=== PATIENT | male | born 1950 | race Caucasian/White ===

== ENCOUNTER → 2023-11-26 11:43 | Outpatient (REF) | payer OTHER, SELFPAY ==
[2023-11-26 10:09] LABS: % Basophils 0.3 % (0-2); % Eosinophils 2.5 % (0-6); % Immature Granulocytes 0.6 % (0-0.5); % Lymphocytes 19.4 % (20.5-51.1); % Monocytes 4.8 % (1.7-9.3); % Neutrophils 72.4 % (42.2-75.2); Absolute Eosinophils 0.1 10^3/uL (0-0.7); Absolute Lymphocytes 0.7 10^3/uL (1.2-3.4); Absolute Monocytes 0.2 10^3/uL (0.1-0.6); Absolute Neutrophils 2.6 10^3/uL (1.4-6.5); Hematocrit 24.3 % (39.0-52.0); Hemoglobin 7.9 g/dL (13.0-18.0); Mean Corp Hgb Conc. 32.5 g/dL (33.0-37.0); Mean Corpuscular Hgb 29.5 pg (27.0-31.0); Mean Corpuscular Volume 90.7 fL (80.0-94.0); Mean Platelet Volume 10.4 fL (7.4-10.4); Nucleated Red Blood Cells % 0 % (-); Platelet Count 101 10^3/uL (130-400); Red Blood Cell Count 2.68 10^6/uL (4.70-6.10); Red Cell Dist. Width 17.2 % (11.5-14.5); White Blood Cell Count 3.6 10^3/uL (4.8-10.8)
[2023-11-26 10:42] LABS: ALT (SGPT) 13 U/L (0-50); AST (SGOT) 19 U/L (17-59); Albumin 2.1 g/dl (3.5-5.0); Alkaline Phosphatase 53 U/L (38-126); Blood Urea Nitrogen 12 mg/dl (9-20); Carbon Dioxide 20 mmol/L (22-30); Chloride 118 mmol/L (98-107); Glucose 66 mg/dl (70-99); Potassium 2.7 mmol/L (3.5-5.1); Sodium 138 mmol/L (135-145); Total Bilirubin 0.4 mg/dl (0.2-1.3); Total Protein 4.1 g/dl (6.3-8.2); eGFR > 60.00
== END ==
LOC: OIDL 11:43
PROVIDERS: ATTENDING PHYSICIAN Internal Medicine Hematology & Oncology
DX: C25.0 Malignant neoplasm of head of pancreas (principal)
CPT/HCPCS: 80053; 85025

== ENCOUNTER → 2023-11-27 13:31 | Outpatient (REF) | payer OTHER, SELFPAY ==
[2023-11-27 09:05] LABS: % Basophils 0.3 % (0-2); % Eosinophils 2.4 % (0-6); % Lymphocytes 37.4 % (20.5-51.1); % Monocytes 10.9 % (1.7-9.3); Absolute Eosinophils 0.1 10^3/uL (0-0.7); Absolute Lymphocytes 1.1 10^3/uL (1.2-3.4); Absolute Monocytes 0.3 10^3/uL (0.1-0.6); Absolute Neutrophils 1.4 10^3/uL (1.4-6.5); Hematocrit 33.6 % (39.0-52.0); Hemoglobin 10.9 g/dL (13.0-18.0); Mean Corp Hgb Conc. 32.4 g/dL (33.0-37.0); Mean Corpuscular Hgb 29.5 pg (27.0-31.0); Mean Corpuscular Volume 91.1 fL (80.0-94.0); Mean Platelet Volume 10.4 fL (7.4-10.4); Nucleated Red Blood Cells % 0 % (-); Platelet Count 124 10^3/uL (130-400); Red Blood Cell Count 3.69 10^6/uL (4.70-6.10); Red Cell Dist. Width 17.3 % (11.5-14.5); White Blood Cell Count 2.9 10^3/uL (4.8-10.8)
[2023-11-27 09:18] LABS: ALT (SGPT) 18 U/L (0-50); AST (SGOT) 24 U/L (17-59); Albumin 3.6 g/dl (3.5-5.0); Alkaline Phosphatase 76 U/L (38-126); Blood Urea Nitrogen 15 mg/dl (9-20); Calcium 8.9 mg/dl (8.4-10.2); Carbon Dioxide 27 mmol/L (22-30); Chloride 104 mmol/L (98-107); Glucose 129 mg/dl (70-99); Potassium 4.1 mmol/L (3.5-5.1); Sodium 135 mmol/L (135-145); Total Bilirubin 0.6 mg/dl (0.2-1.3); Total Protein 6.1 g/dl (6.3-8.2); eGFR > 60.00
== END ==
LOC: OIDL 13:31
PROVIDERS: ATTENDING PHYSICIAN Internal Medicine Hematology & Oncology
DX: C25.0 Malignant neoplasm of head of pancreas (principal)
CPT/HCPCS: 80053; 85025

== ENCOUNTER → 2023-12-10 11:42 | Outpatient (REF) | payer OTHER, SELFPAY ==
[2023-12-10 09:17] LABS: % Basophils 0.2 % (0-2); % Immature Granulocytes 0.2 % (0-0.5); % Lymphocytes 28.7 % (20.5-51.1); % Monocytes 11.6 % (1.7-9.3); % Neutrophils 56.3 % (42.2-75.2); Absolute Eosinophils 0.1 10^3/uL (0-0.7); Absolute Lymphocytes 1.2 10^3/uL (1.2-3.4); Absolute Monocytes 0.5 10^3/uL (0.1-0.6); Absolute Neutrophils 2.3 10^3/uL (1.4-6.5); Hematocrit 32.3 % (39.0-52.0); Hemoglobin 10.6 g/dL (13.0-18.0); Mean Corp Hgb Conc. 32.8 g/dL (33.0-37.0); Mean Corpuscular Hgb 30.2 pg (27.0-31.0); Mean Platelet Volume 9.9 fL (7.4-10.4); Platelet Count 271 10^3/uL (130-400); Red Blood Cell Count 3.51 10^6/uL (4.70-6.10)
[2023-12-10 10:15] LABS: ALT (SGPT) 18 U/L (0-50); AST (SGOT) 26 U/L (17-59); Albumin 3.4 g/dl (3.5-5.0); Alkaline Phosphatase 70 U/L (38-126); Blood Urea Nitrogen 16 mg/dl (9-20); Calcium 8.8 mg/dl (8.4-10.2); Carbon Dioxide 27 mmol/L (22-30); Chloride 104 mmol/L (98-107); Glucose 101 mg/dl (70-99); Potassium 4.2 mmol/L (3.5-5.1); Sodium 135 mmol/L (135-145); Total Bilirubin 0.5 mg/dl (0.2-1.3); Total Protein 5.9 g/dl (6.3-8.2); eGFR > 60.00
== END ==
LOC: OIDL 11:42
PROVIDERS: ATTENDING PHYSICIAN Internal Medicine Hematology & Oncology
DX: C25.0 Malignant neoplasm of head of pancreas (principal)
CPT/HCPCS: 80053; 85025

== ENCOUNTER → 2023-12-17 09:45 | Outpatient (REF) | payer OTHER, SELFPAY ==
[2023-12-17 09:28] LABS: % Basophils 0.3 % (0-2); % Eosinophils 2.6 % (0-6); % Immature Granulocytes 0.3 % (0-0.5); % Lymphocytes 26.1 % (20.5-51.1); % Monocytes 3.1 % (1.7-9.3); % Neutrophils 67.6 % (42.2-75.2); Absolute Eosinophils 0.1 10^3/uL (0-0.7); Absolute Monocytes 0.1 10^3/uL (0.1-0.6); Absolute Neutrophils 2.6 10^3/uL (1.4-6.5); Hematocrit 33.8 % (39.0-52.0); Mean Corp Hgb Conc. 32.5 g/dL (33.0-37.0); Mean Corpuscular Hgb 29.9 pg (27.0-31.0); Mean Corpuscular Volume 91.8 fL (80.0-94.0); Mean Platelet Volume 9.2 fL (7.4-10.4); Platelet Count 377 10^3/uL (130-400); Red Blood Cell Count 3.68 10^6/uL (4.70-6.10); Red Cell Dist. Width 16.6 % (11.5-14.5); White Blood Cell Count 3.9 10^3/uL (4.8-10.8)
[2023-12-17 10:23] LABS: ALT (SGPT) 23 U/L (0-50); AST (SGOT) 31 U/L (17-59); Albumin 3.6 g/dl (3.5-5.0); Alkaline Phosphatase 75 U/L (38-126); Blood Urea Nitrogen 22 mg/dl (9-20); Calcium 8.9 mg/dl (8.4-10.2); Carbon Dioxide 27 mmol/L (22-30); Chloride 102 mmol/L (98-107); Glucose 118 mg/dl (70-99); Potassium 4.6 mmol/L (3.5-5.1); Sodium 133 mmol/L (135-145); Total Bilirubin 0.7 mg/dl (0.2-1.3); Total Protein 6.1 g/dl (6.3-8.2); eGFR > 60.00
== END ==
LOC: OIDL 09:45
PROVIDERS: ATTENDING PHYSICIAN Internal Medicine Hematology & Oncology
DX: C25.0 Malignant neoplasm of head of pancreas (principal)
CPT/HCPCS: 80053; 85025

== ENCOUNTER → 2023-12-30 13:20 | Outpatient (REF) | payer OTHER, SELFPAY | LOC: HWRAD 13:20 | PROVIDERS: ATTENDING PHYSICIAN Internal Medicine Hematology & Oncology; FAMILY PHYSICIAN Nurse Practitioner Family | DX: C25.0 Malignant neoplasm of head of pancreas (principal); C78.7 Secondary malignant neoplasm of liver and intrahepatic bile duct; D64.9 Anemia, unspecified; D63.0 Anemia in neoplastic disease; E87.6 Hypokalemia; E83.51 Hypocalcemia | CPT/HCPCS: 71260; 74177; Q9967 ==

== ENCOUNTER → 2024-01-01 13:19 | Outpatient (REF) | payer OTHER, SELFPAY ==
[2024-01-01 11:08] LABS: % Basophils 0.2 % (0-2); % Eosinophils 2.2 % (0-6); % Lymphocytes 20.5 % (20.5-51.1); % Monocytes 13.9 % (1.7-9.3); % Neutrophils 63.2 % (42.2-75.2); Absolute Eosinophils 0.1 10^3/uL (0-0.7); Absolute Monocytes 0.7 10^3/uL (0.1-0.6); Absolute Neutrophils 3.2 10^3/uL (1.4-6.5); Hematocrit 33.8 % (39.0-52.0); Mean Corp Hgb Conc. 32.5 g/dL (33.0-37.0); Mean Corpuscular Hgb 29.9 pg (27.0-31.0); Mean Corpuscular Volume 91.8 fL (80.0-94.0); Mean Platelet Volume 10.1 fL (7.4-10.4); Platelet Count 258 10^3/uL (130-400); Red Blood Cell Count 3.68 10^6/uL (4.70-6.10)
[2024-01-01 11:43] LABS: ALT (SGPT) 17 U/L (0-50); AST (SGOT) 27 U/L (17-59); Albumin 3.7 g/dl (3.5-5.0); Alkaline Phosphatase 67 U/L (38-126); Blood Urea Nitrogen 14 mg/dl (9-20); Calcium 8.9 mg/dl (8.4-10.2); Carbon Dioxide 27 mmol/L (22-30); Chloride 104 mmol/L (98-107); Glucose 89 mg/dl (70-99); Potassium 4.2 mmol/L (3.5-5.1); Sodium 136 mmol/L (135-145); Total Bilirubin 0.5 mg/dl (0.2-1.3); Total Protein 6.2 g/dl (6.3-8.2); eGFR > 60.00
== END ==
LOC: OIDL 13:19
PROVIDERS: ATTENDING PHYSICIAN Internal Medicine Hematology & Oncology
DX: C25.0 Malignant neoplasm of head of pancreas (principal)
CPT/HCPCS: 80053; 85025

== ENCOUNTER → 2024-01-08 10:35 | Outpatient (REF) | payer OTHER, SELFPAY ==
[2024-01-08 10:36] LABS: % Basophils 0.8 % (0-2); % Eosinophils 2.4 % (0-6); % Immature Granulocytes 0.4 % (0-0.5); % Lymphocytes 41.2 % (20.5-51.1); % Monocytes 7.2 % (1.7-9.3); Absolute Eosinophils 0.1 10^3/uL (0-0.7); Absolute Monocytes 0.2 10^3/uL (0.1-0.6); Absolute Neutrophils 1.2 10^3/uL (1.4-6.5); Hematocrit 32.5 % (39.0-52.0); Hemoglobin 10.9 g/dL (13.0-18.0); Mean Corp Hgb Conc. 33.5 g/dL (33.0-37.0); Mean Corpuscular Hgb 30.5 pg (27.0-31.0); Mean Platelet Volume 10.3 fL (7.4-10.4); Platelet Count 308 10^3/uL (130-400); Red Blood Cell Count 3.57 10^6/uL (4.70-6.10); White Blood Cell Count 2.5 10^3/uL (4.8-10.8)
[2024-01-08 11:00] LABS: ALT (SGPT) 23 U/L (0-50); AST (SGOT) 31 U/L (17-59); Albumin 3.7 g/dl (3.5-5.0); Alkaline Phosphatase 71 U/L (38-126); Blood Urea Nitrogen 20 mg/dl (9-20); Carbon Dioxide 25 mmol/L (22-30); Chloride 105 mmol/L (98-107); Glucose 111 mg/dl (70-99); Potassium 4.3 mmol/L (3.5-5.1); Sodium 134 mmol/L (135-145); Total Bilirubin 0.5 mg/dl (0.2-1.3); Total Protein 6.2 g/dl (6.3-8.2); eGFR > 60.00
== END ==
LOC: OIDL 10:35
PROVIDERS: ATTENDING PHYSICIAN Internal Medicine Hematology & Oncology
DX: C25.0 Malignant neoplasm of head of pancreas (principal)
CPT/HCPCS: 80053; 85025

== ENCOUNTER → 2024-01-26 14:33 | Outpatient (REF) | payer OTHER, SELFPAY ==
[2024-01-26 15:00] LABS: % Basophils 0.2 % (0-2); % Eosinophils 0.8 % (0-6); % Lymphocytes 9.5 % (20.5-51.1); % Monocytes 9.3 % (1.7-9.3); % Neutrophils 79.2 % (42.2-75.2); Absolute Eosinophils 0.1 10^3/uL (0-0.7); Absolute Immature Granulocytes 0.1 10^3/uL (0-0.05); Absolute Lymphocytes 1.2 10^3/uL (1.2-3.4); Absolute Monocytes 1.2 10^3/uL (0.1-0.6); Absolute Neutrophils 10.4 10^3/uL (1.4-6.5); Hematocrit 32.2 % (39.0-52.0); Hemoglobin 10.7 g/dL (13.0-18.0); Mean Corp Hgb Conc. 33.2 g/dL (33.0-37.0); Mean Corpuscular Hgb 30.4 pg (27.0-31.0); Mean Corpuscular Volume 91.5 fL (80.0-94.0); Mean Platelet Volume 10.2 fL (7.4-10.4); Nucleated Red Blood Cells % 0 % (-); Platelet Count 385 10^3/uL (130-400); Red Blood Cell Count 3.52 10^6/uL (4.70-6.10); Red Cell Dist. Width 19.9 % (11.5-14.5); White Blood Cell Count 13.1 10^3/uL (4.8-10.8)
[2024-01-26 15:33] LABS: ALT (SGPT) 16 U/L (0-50); AST (SGOT) 27 U/L (17-59); Albumin 3.6 g/dl (3.5-5.0); Alkaline Phosphatase 86 U/L (38-126); Blood Urea Nitrogen 18 mg/dl (9-20); Carbon Dioxide 24 mmol/L (22-30); Chloride 107 mmol/L (98-107); Glucose 110 mg/dl (70-99); Potassium 4.3 mmol/L (3.5-5.1); Sodium 136 mmol/L (135-145); Total Bilirubin 0.3 mg/dl (0.2-1.3); Total Protein 6.1 g/dl (6.3-8.2); eGFR > 60.00
== END ==
LOC: OIDL 14:33
PROVIDERS: ATTENDING PHYSICIAN Internal Medicine Hematology & Oncology
DX: C25.0 Malignant neoplasm of head of pancreas (principal)
CPT/HCPCS: 80053; 85025

== ENCOUNTER → 2024-02-04 16:25 | Outpatient (REF) | payer OTHER, SELFPAY ==
[2024-02-04 08:47] LABS: % Basophils 0.7 % (0-2); % Eosinophils 1.8 % (0-6); % Lymphocytes 31.2 % (20.5-51.1); % Neutrophils 61.3 % (42.2-75.2); Absolute Eosinophils 0.1 10^3/uL (0-0.7); Absolute Lymphocytes 0.9 10^3/uL (1.2-3.4); Absolute Monocytes 0.1 10^3/uL (0.1-0.6); Absolute Neutrophils 1.7 10^3/uL (1.4-6.5); Hematocrit 31.3 % (39.0-52.0); Hemoglobin 10.5 g/dL (13.0-18.0); Mean Corp Hgb Conc. 33.5 g/dL (33.0-37.0); Mean Corpuscular Hgb 30.6 pg (27.0-31.0); Mean Corpuscular Volume 91.3 fL (80.0-94.0); Mean Platelet Volume 10.8 fL (7.4-10.4); Platelet Count 209 10^3/uL (130-400); Red Blood Cell Count 3.43 10^6/uL (4.70-6.10); Red Cell Dist. Width 18.4 % (11.5-14.5); White Blood Cell Count 2.8 10^3/uL (4.8-10.8)
[2024-02-04 09:37] LABS: ALT (SGPT) 19 U/L (0-50); AST (SGOT) 26 U/L (17-59); Albumin 3.6 g/dl (3.5-5.0); Alkaline Phosphatase 70 U/L (38-126); Blood Urea Nitrogen 24 mg/dl (9-20); Calcium 9.3 mg/dl (8.4-10.2); Carbon Dioxide 26 mmol/L (22-30); Chloride 102 mmol/L (98-107); Glucose 99 mg/dl (70-99); Potassium 4.2 mmol/L (3.5-5.1); Sodium 135 mmol/L (135-145); Total Bilirubin 0.7 mg/dl (0.2-1.3); eGFR > 60.00
== END ==
LOC: OIDL 16:25
PROVIDERS: ATTENDING PHYSICIAN Internal Medicine Hematology & Oncology
DX: C25.0 Malignant neoplasm of head of pancreas (principal)
CPT/HCPCS: 80053; 85025

== ENCOUNTER → 2024-02-17 16:03 | Outpatient (REF) | payer OTHER, SELFPAY ==
[2024-02-17 10:25] LABS: % Basophils 0.1 % (0-2); % Eosinophils 0.7 % (0-6); % Immature Granulocytes 1.6 % (0-0.5); % Lymphocytes 4.7 % (20.5-51.1); % Monocytes 5.2 % (1.7-9.3); % Neutrophils 87.7 % (42.2-75.2); Absolute Eosinophils 0.2 10^3/uL (0-0.7); Absolute Immature Granulocytes 0.4 10^3/uL (0-0.05); Absolute Lymphocytes 1.2 10^3/uL (1.2-3.4); Absolute Monocytes 1.3 10^3/uL (0.1-0.6); Absolute Neutrophils 21.9 10^3/uL (1.4-6.5); Hematocrit 31.4 % (39.0-52.0); Hemoglobin 10.5 g/dL (13.0-18.0); Mean Corp Hgb Conc. 33.4 g/dL (33.0-37.0); Mean Corpuscular Volume 92.6 fL (80.0-94.0); Mean Platelet Volume 10.3 fL (7.4-10.4); Platelet Count 236 10^3/uL (130-400); Red Blood Cell Count 3.39 10^6/uL (4.70-6.10); Red Cell Dist. Width 20.5 % (11.5-14.5); White Blood Cell Count 24.9 10^3/uL (4.8-10.8)
[2024-02-17 12:19] LABS: ALT (SGPT) 16 U/L (0-50); AST (SGOT) 30 U/L (17-59); Albumin 3.8 g/dl (3.5-5.0); Alkaline Phosphatase 145 U/L (38-126); Blood Urea Nitrogen 12 mg/dl (9-20); Calcium 9.3 mg/dl (8.4-10.2); Carbon Dioxide 25 mmol/L (22-30); Chloride 105 mmol/L (98-107); Glucose 72 mg/dl (70-99); Potassium 3.9 mmol/L (3.5-5.1); Sodium 138 mmol/L (135-145); Total Bilirubin 0.5 mg/dl (0.2-1.3); Total Protein 6.2 g/dl (6.3-8.2); eGFR > 60.00
== END ==
LOC: OIDL 16:03
PROVIDERS: ATTENDING PHYSICIAN Internal Medicine Hematology & Oncology
DX: C25.0 Malignant neoplasm of head of pancreas (principal)
CPT/HCPCS: 80053; 85025

== ENCOUNTER → 2024-02-24 16:04 | Outpatient (REF) | payer OTHER, SELFPAY ==
[2024-02-24 14:06] LABS: % Basophils 0.2 % (0-2); % Eosinophils 1.4 % (0-6); % Immature Granulocytes 0.5 % (0-0.5); % Lymphocytes 25.2 % (20.5-51.1); % Monocytes 3.6 % (1.7-9.3); % Neutrophils 69.1 % (42.2-75.2); Absolute Eosinophils 0.1 10^3/uL (0-0.7); Absolute Lymphocytes 1.1 10^3/uL (1.2-3.4); Absolute Monocytes 0.2 10^3/uL (0.1-0.6); Absolute Neutrophils 2.9 10^3/uL (1.4-6.5); Hematocrit 30.1 % (39.0-52.0); Hemoglobin 10.1 g/dL (13.0-18.0); Mean Corp Hgb Conc. 33.6 g/dL (33.0-37.0); Mean Corpuscular Hgb 30.9 pg (27.0-31.0); Mean Platelet Volume 9.6 fL (7.4-10.4); Platelet Count 241 10^3/uL (130-400); Red Blood Cell Count 3.27 10^6/uL (4.70-6.10); Red Cell Dist. Width 19.7 % (11.5-14.5); White Blood Cell Count 4.2 10^3/uL (4.8-10.8)
[2024-02-24 15:50] LABS: ALT (SGPT) 17 U/L (0-50); AST (SGOT) 27 U/L (17-59); Albumin 3.6 g/dl (3.5-5.0); Alkaline Phosphatase 79 U/L (38-126); Blood Urea Nitrogen 21 mg/dl (9-20); Calcium 8.9 mg/dl (8.4-10.2); Carbon Dioxide 25 mmol/L (22-30); Chloride 101 mmol/L (98-107); Glucose 85 mg/dl (70-99); Potassium 4.6 mmol/L (3.5-5.1); Sodium 133 mmol/L (135-145); Total Bilirubin 0.8 mg/dl (0.2-1.3); Total Protein 5.9 g/dl (6.3-8.2); eGFR > 60.00
== END ==
LOC: OIDL 16:04
PROVIDERS: ATTENDING PHYSICIAN Nurse Practitioner Adult Health
DX: C25.0 Malignant neoplasm of head of pancreas (principal)
CPT/HCPCS: 80053; 85025

== ENCOUNTER → 2024-03-10 15:50 | Outpatient (REF) | payer OTHER, SELFPAY ==
[2024-03-10 11:31] LABS: % Basophils 0.2 % (0-2); % Eosinophils 1.6 % (0-6); % Immature Granulocytes 0.9 % (0-0.5); % Lymphocytes 8.4 % (20.5-51.1); % Monocytes 7.9 % (1.7-9.3); Absolute Eosinophils 0.2 10^3/uL (0-0.7); Absolute Immature Granulocytes 0.1 10^3/uL (0-0.05); Absolute Lymphocytes 1.1 10^3/uL (1.2-3.4); Absolute Neutrophils 10.3 10^3/uL (1.4-6.5); Hematocrit 31.6 % (39.0-52.0); Hemoglobin 10.4 g/dL (13.0-18.0); Mean Corp Hgb Conc. 32.9 g/dL (33.0-37.0); Mean Corpuscular Hgb 31.6 pg (27.0-31.0); Platelet Count 330 10^3/uL (130-400); Red Blood Cell Count 3.29 10^6/uL (4.70-6.10); Red Cell Dist. Width 21.9 % (11.5-14.5); White Blood Cell Count 12.7 10^3/uL (4.8-10.8)
[2024-03-10 12:09] LABS: ALT (SGPT) 15 U/L (0-50); AST (SGOT) 29 U/L (17-59); Albumin 3.7 g/dl (3.5-5.0); Alkaline Phosphatase 100 U/L (38-126); Blood Urea Nitrogen 13 mg/dl (9-20); Calcium 9.3 mg/dl (8.4-10.2); Carbon Dioxide 25 mmol/L (22-30); Chloride 105 mmol/L (98-107); Glucose 83 mg/dl (70-99); Potassium 4.6 mmol/L (3.5-5.1); Sodium 138 mmol/L (135-145); Total Bilirubin 0.4 mg/dl (0.2-1.3); eGFR > 60.00
== END ==
LOC: OIDL 15:50
PROVIDERS: ATTENDING PHYSICIAN Internal Medicine Hematology & Oncology
DX: C25.0 Malignant neoplasm of head of pancreas (principal)
CPT/HCPCS: 80053; 85025

== ENCOUNTER → 2024-03-16 15:30 | Outpatient (REF) | payer OTHER, SELFPAY ==
[2024-03-16 11:59] LABS: % Basophils 0.2 % (0-2); % Eosinophils 1.5 % (0-6); % Lymphocytes 18.7 % (20.5-51.1); % Monocytes 3.5 % (1.7-9.3); % Neutrophils 76.1 % (42.2-75.2); Absolute Eosinophils 0.1 10^3/uL (0-0.7); Absolute Lymphocytes 0.9 10^3/uL (1.2-3.4); Absolute Monocytes 0.2 10^3/uL (0.1-0.6); Absolute Neutrophils 3.5 10^3/uL (1.4-6.5); Hemoglobin 9.4 g/dL (13.0-18.0); Mean Corp Hgb Conc. 33.6 g/dL (33.0-37.0); Mean Corpuscular Hgb 32.1 pg (27.0-31.0); Mean Corpuscular Volume 95.6 fL (80.0-94.0); Mean Platelet Volume 9.8 fL (7.4-10.4); Platelet Count 302 10^3/uL (130-400); Red Blood Cell Count 2.93 10^6/uL (4.70-6.10); Red Cell Dist. Width 20.1 % (11.5-14.5); White Blood Cell Count 4.6 10^3/uL (4.8-10.8)
[2024-03-16 13:03] LABS: ALT (SGPT) 17 U/L (0-50); AST (SGOT) 31 U/L (17-59); Albumin 3.3 g/dl (3.5-5.0); Alkaline Phosphatase 74 U/L (38-126); Blood Urea Nitrogen 22 mg/dl (9-20); Calcium 8.8 mg/dl (8.4-10.2); Carbon Dioxide 24 mmol/L (22-30); Chloride 103 mmol/L (98-107); Glucose 83 mg/dl (70-99); Potassium 4.8 mmol/L (3.5-5.1); Sodium 134 mmol/L (135-145); Total Bilirubin 0.8 mg/dl (0.2-1.3); Total Protein 5.7 g/dl (6.3-8.2); eGFR > 60.00
== END ==
LOC: OIDL 15:30
PROVIDERS: ATTENDING PHYSICIAN Nurse Practitioner Adult Health
DX: C25.0 Malignant neoplasm of head of pancreas (principal)
CPT/HCPCS: 80053; 85025

== ENCOUNTER → 2024-04-05 13:36 | Outpatient (REF) | payer OTHER, SELFPAY ==
[2024-04-05 14:15] LABS: % Basophils 0.3 % (0-2); % Immature Granulocytes 0.4 % (0-0.5); % Lymphocytes 11.8 % (20.5-51.1); % Neutrophils 75.5 % (42.2-75.2); Absolute Eosinophils 0.2 10^3/uL (0-0.7); Absolute Lymphocytes 1.2 10^3/uL (1.2-3.4); Absolute Neutrophils 7.4 10^3/uL (1.4-6.5); Hematocrit 32.1 % (39.0-52.0); Hemoglobin 10.6 g/dL (13.0-18.0); Mean Corpuscular Hgb 32.1 pg (27.0-31.0); Mean Corpuscular Volume 97.3 fL (80.0-94.0); Mean Platelet Volume 9.9 fL (7.4-10.4); Nucleated Red Blood Cells % 0 % (-); Platelet Count 432 10^3/uL (130-400); Red Cell Dist. Width 19.5 % (11.5-14.5); White Blood Cell Count 9.7 10^3/uL (4.8-10.8)
[2024-04-05 14:54] LABS: ALT (SGPT) 14 U/L (0-50); AST (SGOT) 37 U/L (17-59); Albumin 3.7 g/dl (3.5-5.0); Alkaline Phosphatase 90 U/L (38-126); Blood Urea Nitrogen 18 mg/dl (9-20); Calcium 9.2 mg/dl (8.4-10.2); Carbon Dioxide 24 mmol/L (22-30); Chloride 104 mmol/L (98-107); Glucose 108 mg/dl (70-99); Potassium 4.8 mmol/L (3.5-5.1); Sodium 136 mmol/L (135-145); Total Bilirubin 0.5 mg/dl (0.2-1.3); Total Protein 6.1 g/dl (6.3-8.2); eGFR > 60.00
== END ==
LOC: OIDL 13:36
PROVIDERS: ATTENDING PHYSICIAN Internal Medicine Hematology & Oncology
DX: C25.0 Malignant neoplasm of head of pancreas (principal); C78.7 Secondary malignant neoplasm of liver and intrahepatic bile duct; D64.9 Anemia, unspecified; D63.0 Anemia in neoplastic disease; E87.6 Hypokalemia; E83.51 Hypocalcemia
CPT/HCPCS: 80053; 85025

== ENCOUNTER → 2024-04-13 10:29 | Outpatient (REF) | payer OTHER, SELFPAY ==
[2024-04-13 10:17] LABS: % Basophils 0.8 % (0-2); % Eosinophils 3.2 % (0-6); % Immature Granulocytes 0.3 % (0-0.5); % Lymphocytes 20.3 % (20.5-51.1); % Monocytes 5.7 % (1.7-9.3); % Neutrophils 69.7 % (42.2-75.2); Absolute Eosinophils 0.1 10^3/uL (0-0.7); Absolute Lymphocytes 0.8 10^3/uL (1.2-3.4); Absolute Monocytes 0.2 10^3/uL (0.1-0.6); Absolute Neutrophils 2.6 10^3/uL (1.4-6.5); Hematocrit 30.1 % (39.0-52.0); Hemoglobin 9.9 g/dL (13.0-18.0); Mean Corp Hgb Conc. 32.9 g/dL (33.0-37.0); Mean Corpuscular Hgb 32.1 pg (27.0-31.0); Mean Corpuscular Volume 97.7 fL (80.0-94.0); Mean Platelet Volume 10.1 fL (7.4-10.4); Platelet Count 171 10^3/uL (130-400); Red Blood Cell Count 3.08 10^6/uL (4.70-6.10); Red Cell Dist. Width 16.9 % (11.5-14.5); White Blood Cell Count 3.7 10^3/uL (4.8-10.8)
[2024-04-13 10:50] LABS: ALT (SGPT) 20 U/L (0-50); AST (SGOT) 39 U/L (17-59); Albumin 3.4 g/dl (3.5-5.0); Alkaline Phosphatase 88 U/L (38-126); Blood Urea Nitrogen 23 mg/dl (9-20); Carbon Dioxide 25 mmol/L (22-30); Chloride 104 mmol/L (98-107); Glucose 93 mg/dl (70-99); Potassium 4.6 mmol/L (3.5-5.1); Sodium 135 mmol/L (135-145); Total Bilirubin 0.5 mg/dl (0.2-1.3); Total Protein 5.8 g/dl (6.3-8.2); eGFR > 60.00
== END ==
LOC: OIDL 10:29
PROVIDERS: ATTENDING PHYSICIAN Internal Medicine Hematology & Oncology
DX: C25.0 Malignant neoplasm of head of pancreas (principal)
CPT/HCPCS: 80053; 85025

== ENCOUNTER → 2024-04-21 13:20 | Outpatient (REF) | payer OTHER, SELFPAY | LOC: HWRAD 13:20 | PROVIDERS: ATTENDING PHYSICIAN Internal Medicine Hematology & Oncology; FAMILY PHYSICIAN Nurse Practitioner Family | DX: C25.0 Malignant neoplasm of head of pancreas (principal) | CPT/HCPCS: 71260; 74177; Q9967 ==

== ENCOUNTER → 2024-05-03 10:44 | Outpatient (REF) | payer OTHER, SELFPAY ==
[2024-05-03 11:02] LABS: % Basophils 0.4 % (0-2); % Eosinophils 1.1 % (0-6); % Immature Granulocytes 0.3 % (0-0.5); % Lymphocytes 13.3 % (20.5-51.1); % Monocytes 11.1 % (1.7-9.3); % Neutrophils 73.8 % (42.2-75.2); Absolute Basophils 0.1 10^3/uL (0-0.2); Absolute Eosinophils 0.1 10^3/uL (0-0.7); Absolute Lymphocytes 1.6 10^3/uL (1.2-3.4); Absolute Monocytes 1.3 10^3/uL (0.1-0.6); Absolute Neutrophils 8.6 10^3/uL (1.4-6.5); Hemoglobin 10.7 g/dL (13.0-18.0); Mean Corp Hgb Conc. 32.4 g/dL (33.0-37.0); Mean Corpuscular Hgb 31.1 pg (27.0-31.0); Mean Corpuscular Volume 95.9 fL (80.0-94.0); Mean Platelet Volume 9.9 fL (7.4-10.4); Nucleated Red Blood Cells % 0 % (-); Platelet Count 446 10^3/uL (130-400); Red Blood Cell Count 3.44 10^6/uL (4.70-6.10); Red Cell Dist. Width 17.3 % (11.5-14.5); White Blood Cell Count 11.6 10^3/uL (4.8-10.8)
[2024-05-03 11:17] LABS: ALT (SGPT) 13 U/L (0-50); AST (SGOT) 40 U/L (17-59); Albumin 3.8 g/dl (3.5-5.0); Alkaline Phosphatase 98 U/L (38-126); Blood Urea Nitrogen 17 mg/dl (9-20); Calcium 9.5 mg/dl (8.4-10.2); Carbon Dioxide 25 mmol/L (22-30); Chloride 102 mmol/L (98-107); Glucose 97 mg/dl (70-99); Potassium 4.4 mmol/L (3.5-5.1); Sodium 136 mmol/L (135-145); Total Bilirubin 0.5 mg/dl (0.2-1.3); Total Protein 6.1 g/dl (6.3-8.2); eGFR > 60.00
== END ==
LOC: OIDL 10:44
PROVIDERS: ATTENDING PHYSICIAN Internal Medicine Hematology & Oncology
DX: C25.0 Malignant neoplasm of head of pancreas (principal); C78.7 Secondary malignant neoplasm of liver and intrahepatic bile duct; D64.9 Anemia, unspecified; D63.0 Anemia in neoplastic disease; E87.6 Hypokalemia
CPT/HCPCS: 80053; 85025

== ENCOUNTER → 2024-05-17 16:00 | Outpatient (REF) | payer OTHER, SELFPAY ==
[2024-05-17 10:01] LABS: % Basophils 0.4 % (0-2); % Eosinophils 3.5 % (0-6); % Immature Granulocytes 0.4 % (0-0.5); % Lymphocytes 22.9 % (20.5-51.1); % Monocytes 10.6 % (1.7-9.3); % Neutrophils 62.2 % (42.2-75.2); Absolute Eosinophils 0.2 10^3/uL (0-0.7); Absolute Lymphocytes 1.2 10^3/uL (1.2-3.4); Absolute Monocytes 0.5 10^3/uL (0.1-0.6); Absolute Neutrophils 3.2 10^3/uL (1.4-6.5); Hematocrit 31.7 % (39.0-52.0); Hemoglobin 10.6 g/dL (13.0-18.0); Mean Corp Hgb Conc. 33.4 g/dL (33.0-37.0); Mean Corpuscular Hgb 31.6 pg (27.0-31.0); Mean Corpuscular Volume 94.6 fL (80.0-94.0); Nucleated Red Blood Cells % 0 % (-); Platelet Count 153 10^3/uL (130-400); Red Blood Cell Count 3.35 10^6/uL (4.70-6.10); Red Cell Dist. Width 16.1 % (11.5-14.5); White Blood Cell Count 5.1 10^3/uL (4.8-10.8)
[2024-05-17 10:03] LABS: ALT (SGPT) 13 U/L (0-50); AST (SGOT) 29 U/L (17-59); Albumin 3.7 g/dl (3.5-5.0); Alkaline Phosphatase 87 U/L (38-126); Blood Urea Nitrogen 18 mg/dl (9-20); Calcium 9.4 mg/dl (8.4-10.2); Carbon Dioxide 25 mmol/L (22-30); Chloride 104 mmol/L (98-107); Glucose 96 mg/dl (70-99); Potassium 4.1 mmol/L (3.5-5.1); Sodium 135 mmol/L (135-145); Total Bilirubin 0.4 mg/dl (0.2-1.3); Total Protein 5.8 g/dl (6.3-8.2); eGFR > 60.00
== END ==
LOC: OIDL 16:00
PROVIDERS: ATTENDING PHYSICIAN Internal Medicine Hematology & Oncology
DX: C25.0 Malignant neoplasm of head of pancreas (principal)
CPT/HCPCS: 80053; 85025

== ENCOUNTER → 2024-05-31 15:45 | Outpatient (REF) | payer OTHER, SELFPAY ==
[2024-05-31 09:17] LABS: % Basophils 0.5 % (0-2); % Eosinophils 3.6 % (0-6); % Immature Granulocytes 0.2 % (0-0.5); % Lymphocytes 34.2 % (20.5-51.1); % Monocytes 10.8 % (1.7-9.3); % Neutrophils 50.7 % (42.2-75.2); Absolute Eosinophils 0.2 10^3/uL (0-0.7); Absolute Lymphocytes 1.4 10^3/uL (1.2-3.4); Absolute Monocytes 0.5 10^3/uL (0.1-0.6); Absolute Neutrophils 2.1 10^3/uL (1.4-6.5); Hematocrit 31.4 % (39.0-52.0); Hemoglobin 10.7 g/dL (13.0-18.0); Mean Corp Hgb Conc. 34.1 g/dL (33.0-37.0); Mean Platelet Volume 11.4 fL (7.4-10.4); Nucleated Red Blood Cells % 0 % (-); Platelet Count 120 10^3/uL (130-400); Red Blood Cell Count 3.45 10^6/uL (4.70-6.10); Red Cell Dist. Width 16.7 % (11.5-14.5); White Blood Cell Count 4.2 10^3/uL (4.8-10.8)
[2024-05-31 09:29] LABS: ALT (SGPT) 15 U/L (0-50); AST (SGOT) 30 U/L (17-59); Albumin 3.8 g/dl (3.5-5.0); Alkaline Phosphatase 82 U/L (38-126); Blood Urea Nitrogen 23 mg/dl (9-20); Calcium 9.4 mg/dl (8.4-10.2); Carbon Dioxide 25 mmol/L (22-30); Chloride 104 mmol/L (98-107); Glucose 105 mg/dl (70-99); Potassium 4.2 mmol/L (3.5-5.1); Sodium 136 mmol/L (135-145); Total Bilirubin 0.6 mg/dl (0.2-1.3); Total Protein 5.9 g/dl (6.3-8.2); eGFR > 60.00
== END ==
LOC: OIDL 15:45
PROVIDERS: ATTENDING PHYSICIAN Internal Medicine Hematology & Oncology
DX: C25.0 Malignant neoplasm of head of pancreas (principal)
CPT/HCPCS: 80053; 85025

== ENCOUNTER → 2024-06-14 15:54 | Outpatient (REF) | payer OTHER, SELFPAY ==
[2024-06-14 09:28] LABS: % Basophils 0.3 % (0-2); % Eosinophils 1.9 % (0-6); % Lymphocytes 30.9 % (20.5-51.1); % Monocytes 12.3 % (1.7-9.3); % Neutrophils 54.6 % (42.2-75.2); Absolute Eosinophils 0.1 10^3/uL (0-0.7); Absolute Monocytes 0.4 10^3/uL (0.1-0.6); Absolute Neutrophils 1.8 10^3/uL (1.4-6.5); Hematocrit 30.3 % (39.0-52.0); Hemoglobin 10.4 g/dL (13.0-18.0); Mean Corp Hgb Conc. 34.3 g/dL (33.0-37.0); Mean Corpuscular Volume 90.4 fL (80.0-94.0); Mean Platelet Volume 9.8 fL (7.4-10.4); Nucleated Red Blood Cells % 0 % (-); Platelet Count 108 10^3/uL (130-400); Red Blood Cell Count 3.35 10^6/uL (4.70-6.10); Red Cell Dist. Width 17.9 % (11.5-14.5); White Blood Cell Count 3.2 10^3/uL (4.8-10.8)
[2024-06-14 09:39] LABS: Potassium 4.1 mmol/L (3.5-5.1)
[2024-06-14 09:40] LABS: ALT (SGPT) 15 U/L (0-50); AST (SGOT) 29 U/L (17-59); Albumin 3.8 g/dl (3.5-5.0); Alkaline Phosphatase 82 U/L (38-126); Blood Urea Nitrogen 19 mg/dl (9-20); Calcium 9.4 mg/dl (8.4-10.2); Carbon Dioxide 26 mmol/L (22-30); Chloride 104 mmol/L (98-107); Glucose 120 mg/dl (70-99); Sodium 137 mmol/L (135-145); Total Bilirubin 0.6 mg/dl (0.2-1.3); Total Protein 5.9 g/dl (6.3-8.2); eGFR > 60.00
== END ==
LOC: OID 15:54
PROVIDERS: ATTENDING PHYSICIAN Internal Medicine Hematology & Oncology
DX: C25.0 Malignant neoplasm of head of pancreas (principal); C78.7 Secondary malignant neoplasm of liver and intrahepatic bile duct; D63.0 Anemia in neoplastic disease; E87.6 Hypokalemia; E83.51 Hypocalcemia
CPT/HCPCS: 80053; 85025

== ENCOUNTER → 2024-06-18 09:29 | Outpatient (REF) | payer OTHER, SELFPAY ==
--- NOTE | 2024-06-18 09:51 | W.PN.UPDATE ---
Update Note
Progress Note Update
Mr. Dc came to IR for port site check. He was sent by oncology. He notes some mild erythema over the port pocket. He denies fever or chills. He has had no drainage from the site. He was started on antibiotics in the office. He has 3 days
left. He notes improvement.
PE: Temp 97.9
73 yo male in NAD. There is a SL port in place. The is no fluctuance or warmth noted over the site. No tenderness to palpation. There is some mild erythema over the port. No overt signs of cellulitis
A/P: 73 yo male sent for port site check. No concern for infection at this time
Continue with antibiotics until finished
If he develops a fever, chills, fluctuance or worsening erythema would need to remove port
Reviewed case with Dr. Escamilla who also saw the patient
== END ==
LOC: RADI 09:29
PROVIDERS: ATTENDING PHYSICIAN Internal Medicine Hematology & Oncology; FAMILY PHYSICIAN Family Medicine
DX: Z45.2 Encounter for adjustment and management of vascular access device (principal)

== ENCOUNTER → 2024-06-21 15:19 | Outpatient (REF) | payer OTHER, SELFPAY ==
[2024-06-21 09:56] LABS: ALT (SGPT) 14 U/L (0-50); AST (SGOT) 30 U/L (17-59); Albumin 3.8 g/dl (3.5-5.0); Alkaline Phosphatase 87 U/L (38-126); Blood Urea Nitrogen 24 mg/dl (9-20); Calcium 9.5 mg/dl (8.4-10.2); Carbon Dioxide 28 mmol/L (22-30); Chloride 101 mmol/L (98-107); Glucose 92 mg/dl (70-99); Potassium 4.2 mmol/L (3.5-5.1); Sodium 137 mmol/L (135-145); Total Bilirubin 0.5 mg/dl (0.2-1.3); eGFR > 60.00
[2024-06-21 09:57] LABS: Hematocrit 32.5 % (39.0-52.0); Mean Corp Hgb Conc. 33.8 g/dL (33.0-37.0); Mean Corpuscular Hgb 31.6 pg (27.0-31.0); Mean Corpuscular Volume 93.4 fL (80.0-94.0); Mean Platelet Volume 10.1 fL (7.4-10.4); Platelet Count 190 10^3/uL (130-400); Red Blood Cell Count 3.48 10^6/uL (4.70-6.10); Red Cell Dist. Width 19.3 % (11.5-14.5); White Blood Cell Count 2.5 10^3/uL (4.8-10.8)
[2024-06-21 10:37] LABS: Monocytes 20 % (2-9); Platelets Checked Yes; Segmented Neutrophils 22 % (42-75)
[2024-06-21 10:38] LABS: Normal RBC Morphology Yes; Total Cells Counted 100
[2024-06-21 10:39] LABS: Atypical Lymphocytes 18 %; Lymphocytes 40 % (20-51)
== END ==
LOC: OIDL 15:19
PROVIDERS: ATTENDING PHYSICIAN Internal Medicine Hematology & Oncology
DX: C25.0 Malignant neoplasm of head of pancreas (principal)
CPT/HCPCS: 80053; 85025

== ENCOUNTER → 2024-07-05 15:02 | Outpatient (REF) | payer OTHER, SELFPAY ==
[2024-07-05 09:43] LABS: % Basophils 0.3 % (0-2); % Eosinophils 4.3 % (0-6); % Immature Granulocytes 0.3 % (0-0.5); % Lymphocytes 38.3 % (20.5-51.1); % Monocytes 11.1 % (1.7-9.3); % Neutrophils 45.7 % (42.2-75.2); Absolute Eosinophils 0.2 10^3/uL (0-0.7); Absolute Lymphocytes 1.3 10^3/uL (1.2-3.4); Absolute Monocytes 0.4 10^3/uL (0.1-0.6); Absolute Neutrophils 1.6 10^3/uL (1.4-6.5); Hematocrit 31.8 % (39.0-52.0); Mean Corp Hgb Conc. 34.6 g/dL (33.0-37.0); Mean Corpuscular Hgb 32.6 pg (27.0-31.0); Mean Corpuscular Volume 94.4 fL (80.0-94.0); Mean Platelet Volume 10.3 fL (7.4-10.4); Nucleated Red Blood Cells % 0 % (-); Platelet Count 103 10^3/uL (130-400); Red Blood Cell Count 3.37 10^6/uL (4.70-6.10); Red Cell Dist. Width 19.2 % (11.5-14.5); White Blood Cell Count 3.5 10^3/uL (4.8-10.8)
[2024-07-05 10:14] LABS: ALT (SGPT) 16 U/L (0-50); AST (SGOT) 32 U/L (17-59); Albumin 3.8 g/dl (3.5-5.0); Alkaline Phosphatase 84 U/L (38-126); Blood Urea Nitrogen 27 mg/dl (9-20); Calcium 9.5 mg/dl (8.4-10.2); Carbon Dioxide 22 mmol/L (22-30); Chloride 103 mmol/L (98-107); Glucose 109 mg/dl (70-99); Sodium 137 mmol/L (135-145); Total Bilirubin 0.6 mg/dl (0.2-1.3); Total Protein 6.1 g/dl (6.3-8.2); eGFR > 60.00
== END ==
LOC: OIDL 15:02
PROVIDERS: ATTENDING PHYSICIAN Internal Medicine Hematology & Oncology
DX: C25.0 Malignant neoplasm of head of pancreas (principal)
CPT/HCPCS: 80053; 85025

== ENCOUNTER → 2024-07-19 16:09 | Outpatient (REF) | payer OTHER, SELFPAY ==
[2024-07-19 10:41] LABS: % Basophils 0.8 % (0-2); % Immature Granulocytes 0.3 % (0-0.5); % Lymphocytes 30.7 % (20.5-51.1); % Monocytes 18.6 % (1.7-9.3); % Neutrophils 47.6 % (42.2-75.2); Absolute Eosinophils 0.1 10^3/uL (0-0.7); Absolute Lymphocytes 1.1 10^3/uL (1.2-3.4); Absolute Monocytes 0.7 10^3/uL (0.1-0.6); Absolute Neutrophils 1.7 10^3/uL (1.4-6.5); Hematocrit 32.1 % (39.0-52.0); Hemoglobin 11.1 g/dL (13.0-18.0); Mean Corp Hgb Conc. 34.6 g/dL (33.0-37.0); Mean Corpuscular Volume 92.5 fL (80.0-94.0); Mean Platelet Volume 11.3 fL (7.4-10.4); Nucleated Red Blood Cells % 0 % (-); Platelet Count 125 10^3/uL (130-400); Red Blood Cell Count 3.47 10^6/uL (4.70-6.10); Red Cell Dist. Width 20.1 % (11.5-14.5); White Blood Cell Count 3.6 10^3/uL (4.8-10.8)
[2024-07-19 15:08] LABS: ALT (SGPT) 22 U/L (0-50); AST (SGOT) 40 U/L (17-59); Albumin 4.1 g/dl (3.5-5.0); Alkaline Phosphatase 86 U/L (38-126); Blood Urea Nitrogen 17 mg/dl (9-20); Calcium 9.5 mg/dl (8.4-10.2); Carbon Dioxide 24 mmol/L (22-30); Chloride 104 mmol/L (98-107); Glucose 95 mg/dl (70-99); Potassium 4.5 mmol/L (3.5-5.1); Sodium 140 mmol/L (135-145); Total Bilirubin 0.5 mg/dl (0.2-1.3); Total Protein 6.3 g/dl (6.3-8.2); eGFR > 60.00
== END ==
LOC: OIDL 16:09
PROVIDERS: ATTENDING PHYSICIAN Nurse Practitioner Adult Health
DX: C25.0 Malignant neoplasm of head of pancreas (principal)
CPT/HCPCS: 80053; 85025

== ENCOUNTER → 2024-07-26 09:00 | Outpatient (REF) | payer OTHER, SELFPAY ==
[2024-07-26 09:14] VITALS: BMI 26.3
[2024-07-26 09:51] LABS: Hematocrit 31.5 % (39.0-52.0); Hemoglobin 11.2 g/dL (13.0-18.0); Mean Corp Hgb Conc. 35.6 g/dL (33.0-37.0); Mean Corpuscular Hgb 32.6 pg (27.0-31.0); Mean Corpuscular Volume 91.6 fL (80.0-94.0); Mean Platelet Volume 11.3 fL (7.4-10.4); Platelet Count 122 10^3/uL (130-400); Red Blood Cell Count 3.44 10^6/uL (4.70-6.10); Red Cell Dist. Width 19.8 % (11.5-14.5)
[2024-07-26 10:23] LABS: ALT (SGPT) 21 U/L (0-50); AST (SGOT) 30 U/L (17-59); Albumin 3.9 g/dl (3.5-5.0); Alkaline Phosphatase 75 U/L (38-126); Atypical Lymphocytes 12 %; Band Neutrophils 1 % (0-3); Blood Urea Nitrogen 28 mg/dl (9-20); Calcium 9.3 mg/dl (8.4-10.2); Carbon Dioxide 25 mmol/L (22-30); Chloride 103 mmol/L (98-107); Eosinophils 4 % (0-6); Estimated Creatinine Clearance 78 ml/min; Glucose 103 mg/dl (70-99); Lymphocytes 54 % (20-51); Monocytes 4 % (2-9); Potassium 4.1 mmol/L (3.5-5.1); Segmented Neutrophils 25 % (42-75); Sodium 137 mmol/L (135-145); Total Bilirubin 0.6 mg/dl (0.2-1.3); Total Cells Counted 100; Total Protein 6.2 g/dl (6.3-8.2); eGFR > 60.00
[2024-07-26 10:24] LABS: Absolute Neutrophils -Man Diff 0.4 10^3/uL (1.4-6.5); Normal RBC Morphology Yes; Platelets Checked Yes; Smudge Cells 1+; White Blood Cell Count 1.7 10^3/uL (4.8-10.8)
== END ==
LOC: REG 09:00
PROVIDERS: ATTENDING PHYSICIAN Internal Medicine Cardiovascular Disease; FAMILY PHYSICIAN Nurse Practitioner Family; OTHER PHYSICIAN Internal Medicine Cardiovascular Disease
DX: I47.20 Ventricular tachycardia, unspecified (principal); I50.22 Chronic systolic (congestive) heart failure
CPT/HCPCS: 36415; 80053; 85025; 93005

== ENCOUNTER → 2024-08-02 15:59 | Outpatient (REF) | payer OTHER, SELFPAY ==
[2024-08-02 09:54] LABS: ALT (SGPT) 19 U/L (0-50); AST (SGOT) 33 U/L (17-59); Albumin 3.6 g/dl (3.5-5.0); Alkaline Phosphatase 81 U/L (38-126); Blood Urea Nitrogen 18 mg/dl (9-20); Calcium 8.8 mg/dl (8.4-10.2); Carbon Dioxide 24 mmol/L (22-30); Chloride 106 mmol/L (98-107); Glucose 96 mg/dl (70-99); Potassium 3.8 mmol/L (3.5-5.1); Sodium 141 mmol/L (135-145); Total Bilirubin 0.6 mg/dl (0.2-1.3); Total Protein 5.8 g/dl (6.3-8.2); eGFR > 60.00
[2024-08-02 10:12] LABS: % Basophils 0.6 % (0-2); % Eosinophils 2.1 % (0-6); % Immature Granulocytes 0.3 % (0-0.5); % Lymphocytes 44.1 % (20.5-51.1); % Neutrophils 35.9 % (42.2-75.2); Absolute Eosinophils 0.1 10^3/uL (0-0.7); Absolute Lymphocytes 1.5 10^3/uL (1.2-3.4); Absolute Monocytes 0.6 10^3/uL (0.1-0.6); Absolute Neutrophils 1.2 10^3/uL (1.4-6.5); Hematocrit 27.4 % (39.0-52.0); Hemoglobin 9.6 g/dL (13.0-18.0); Mean Corpuscular Hgb 32.5 pg (27.0-31.0); Mean Corpuscular Volume 92.9 fL (80.0-94.0); Nucleated Red Blood Cells % 0 % (-); Platelet Count 99 10^3/uL (130-400); Red Blood Cell Count 2.95 10^6/uL (4.70-6.10); Red Cell Dist. Width 19.9 % (11.5-14.5); White Blood Cell Count 3.3 10^3/uL (4.8-10.8)
== END ==
LOC: OIDL 15:59
PROVIDERS: ATTENDING PHYSICIAN Internal Medicine Hematology & Oncology
DX: C25.0 Malignant neoplasm of head of pancreas (principal)
CPT/HCPCS: 80053; 85025

== ENCOUNTER → 2024-08-23 10:41 | Outpatient (REF) | payer OTHER, SELFPAY ==
[2024-08-23 10:04] LABS: % Basophils 0.4 % (0-2); % Eosinophils 0.9 % (0-6); % Immature Granulocytes 1.2 % (0-0.5); % Lymphocytes 15.2 % (20.5-51.1); % Monocytes 12.1 % (1.7-9.3); % Neutrophils 70.2 % (42.2-75.2); Absolute Eosinophils 0.1 10^3/uL (0-0.7); Absolute Immature Granulocytes 0.1 10^3/uL (0-0.05); Absolute Lymphocytes 1.3 10^3/uL (1.2-3.4); Hematocrit 28.9 % (39.0-52.0); Hemoglobin 9.8 g/dL (13.0-18.0); Mean Corp Hgb Conc. 33.9 g/dL (33.0-37.0); Mean Corpuscular Hgb 35.9 pg (27.0-31.0); Mean Corpuscular Volume 105.9 fL (80.0-94.0); Mean Platelet Volume 11.7 fL (7.4-10.4); Nucleated Red Blood Cells % 0 % (-); Platelet Count 182 10^3/uL (130-400); Red Blood Cell Count 2.73 10^6/uL (4.70-6.10); Red Cell Dist. Width 23.7 % (11.5-14.5); White Blood Cell Count 8.5 10^3/uL (4.8-10.8)
[2024-08-23 10:33] LABS: ALT (SGPT) 17 U/L (0-50); AST (SGOT) 36 U/L (17-59); Albumin 3.7 g/dl (3.5-5.0); Alkaline Phosphatase 91 U/L (38-126); Blood Urea Nitrogen 19 mg/dl (9-20); Calcium 9.2 mg/dl (8.4-10.2); Carbon Dioxide 24 mmol/L (22-30); Chloride 105 mmol/L (98-107); Glucose 110 mg/dl (70-99); Potassium 3.7 mmol/L (3.5-5.1); Sodium 140 mmol/L (135-145); Total Bilirubin 0.5 mg/dl (0.2-1.3); eGFR > 60.00
[2024-08-25 00:31] LABS: CA 19-9 239 U/mL (<=35)
== END ==
LOC: OIDL 10:41
PROVIDERS: ATTENDING PHYSICIAN Internal Medicine Hematology & Oncology
DX: C25.0 Malignant neoplasm of head of pancreas (principal); C78.7 Secondary malignant neoplasm of liver and intrahepatic bile duct; D64.9 Anemia, unspecified; D63.0 Anemia in neoplastic disease; E87.6 Hypokalemia; E83.51 Hypocalcemia
CPT/HCPCS: 80053; 85025; 86301

== ENCOUNTER → 2024-09-01 13:05 | Outpatient (REF) | payer OTHER, SELFPAY | LOC: RAD 13:05 | PROVIDERS: ATTENDING PHYSICIAN Internal Medicine Hematology & Oncology | DX: C25.0 Malignant neoplasm of head of pancreas (principal); C78.7 Secondary malignant neoplasm of liver and intrahepatic bile duct; D64.9 Anemia, unspecified; D63.0 Anemia in neoplastic disease; E87.6 Hypokalemia; E83.51 Hypocalcemia | CPT/HCPCS: 71260; 74177; Q9967 ==

== ENCOUNTER → 2024-09-06 15:55 | Outpatient (REF) | payer OTHER, SELFPAY ==
[2024-09-06 09:46] LABS: % Basophils 0.6 % (0-2); % Eosinophils 2.3 % (0-6); % Lymphocytes 18.1 % (20.5-51.1); Absolute Basophils 0.1 10^3/uL (0-0.2); Absolute Eosinophils 0.2 10^3/uL (0-0.7); Absolute Immature Granulocytes 0.1 10^3/uL (0-0.05); Absolute Lymphocytes 1.5 10^3/uL (1.2-3.4); Absolute Monocytes 0.8 10^3/uL (0.1-0.6); Absolute Neutrophils 5.7 10^3/uL (1.4-6.5); Hemoglobin 10.3 g/dL (13.0-18.0); Mean Corp Hgb Conc. 34.3 g/dL (33.0-37.0); Mean Corpuscular Hgb 36.5 pg (27.0-31.0); Mean Corpuscular Volume 106.4 fL (80.0-94.0); Mean Platelet Volume 11.3 fL (7.4-10.4); Nucleated Red Blood Cells % 0 % (-); Platelet Count 111 10^3/uL (130-400); Red Blood Cell Count 2.82 10^6/uL (4.70-6.10); Red Cell Dist. Width 21.2 % (11.5-14.5); White Blood Cell Count 8.4 10^3/uL (4.8-10.8)
[2024-09-06 10:02] LABS: ALT (SGPT) 17 U/L (0-50); AST (SGOT) 31 U/L (17-59); Albumin 3.8 g/dl (3.5-5.0); Alkaline Phosphatase 126 U/L (38-126); Blood Urea Nitrogen 13 mg/dl (9-20); Carbon Dioxide 23 mmol/L (22-30); Chloride 103 mmol/L (98-107); Glucose 100 mg/dl (70-99); Potassium 3.9 mmol/L (3.5-5.1); Sodium 139 mmol/L (135-145); Total Bilirubin 0.5 mg/dl (0.2-1.3); Total Protein 6.2 g/dl (6.3-8.2); eGFR > 60.00
== END ==
LOC: OIDL 15:55
PROVIDERS: ATTENDING PHYSICIAN Internal Medicine Hematology & Oncology
DX: C25.0 Malignant neoplasm of head of pancreas (principal)
CPT/HCPCS: 80053; 85025

== ENCOUNTER → 2024-09-27 15:12 | Outpatient (REF) | payer OTHER, SELFPAY ==
[2024-09-27 10:29] LABS: % Basophils 0.4 % (0-2); % Immature Granulocytes 0.6 % (0-0.5); % Lymphocytes 22.1 % (20.5-51.1); % Neutrophils 62.9 % (42.2-75.2); Absolute Eosinophils 0.1 10^3/uL (0-0.7); Absolute Lymphocytes 1.6 10^3/uL (1.2-3.4); Absolute Monocytes 0.8 10^3/uL (0.1-0.6); Absolute Neutrophils 4.4 10^3/uL (1.4-6.5); Hematocrit 34.8 % (39.0-52.0); Hemoglobin 11.3 g/dL (13.0-18.0); Mean Corp Hgb Conc. 32.5 g/dL (33.0-37.0); Mean Corpuscular Hgb 36.9 pg (27.0-31.0); Mean Corpuscular Volume 113.7 fL (80.0-94.0); Mean Platelet Volume 9.8 fL (7.4-10.4); Nucleated Red Blood Cells % 0 % (-); Platelet Count 160 10^3/uL (130-400); Red Blood Cell Count 3.06 10^6/uL (4.70-6.10); Red Cell Dist. Width 19.7 % (11.5-14.5)
[2024-09-27 10:36] LABS: ALT (SGPT) 17 U/L (0-50); AST (SGOT) 33 U/L (17-59); Albumin 3.9 g/dl (3.5-5.0); Alkaline Phosphatase 93 U/L (38-126); Blood Urea Nitrogen 20 mg/dl (9-20); Calcium 9.3 mg/dl (8.4-10.2); Carbon Dioxide 27 mmol/L (22-30); Chloride 103 mmol/L (98-107); Glucose 107 mg/dl (70-99); Potassium 4.3 mmol/L (3.5-5.1); Sodium 139 mmol/L (135-145); Total Bilirubin 0.6 mg/dl (0.2-1.3); Total Protein 6.3 g/dl (6.3-8.2); eGFR > 60.00
[2024-09-29 22:01] LABS: CA 19-9 194 U/mL (<=35)
== END ==
LOC: OIDL 15:12
PROVIDERS: ATTENDING PHYSICIAN Internal Medicine Hematology & Oncology
DX: C25.0 Malignant neoplasm of head of pancreas (principal); C78.7 Secondary malignant neoplasm of liver and intrahepatic bile duct; D64.9 Anemia, unspecified; D63.0 Anemia in neoplastic disease; E87.6 Hypokalemia; E83.51 Hypocalcemia
CPT/HCPCS: 80053; 85025; 86301

== ENCOUNTER 2024-10-08 09:50 | Day surgery (SDC) | payer OTHER, SELFPAY ==
[2024-10-06 10:20] VITALS: BMI 25.0
--- NOTE | 2024-10-06 10:56 | HPS.HSE ---
Family Physician
-
Family Physician: Verenice Azevedo NP
Chief Complaint
-
Ventricular tachycardia. Congestive heart failure. Generator change.
History of Present Illness
This is a 73-year-old male with a past medical history of ventricular tachycardia, congestive heart failure with reduced ejection fraction, dilated cardiomyopathy, and left bundle branch block who has had a biventricular ICD placed in 2016 and is
due for generator change. Most recent echocardiogram on October 17, 2023 revealed a moderately reduced left ventricular ejection fraction of 40% with moderate tricuspid regurgitation and a pulmonary artery pressure 52 mmHg. The patient suffered a
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 This was in the left temporoparietal region and he is left with deficits, which include anomia, intermittent aphasia, and mild cognitive decline. A small right to left shunt with PFO was noted on LYNN
bubble study; however, Neurology does not feel closure would benefit the patient as stroke etiology was atheroembolic. He has had a diagnosis of pancreatic cancer in 2022 with metastasis to liver and he is currently undergoing chemotherapy with
resultant neuropathy, pancytopenia, as well as weight loss. He does have a history of excessive alcohol use; however, has stopped drinking approximately one and half years ago at time of diagnosis. He denies any tobacco but does have COPD with an
asthmatic component, which he states is well controlled and he is not needing use of his inhaler. He does have sleep apnea, but is intolerant to device. He also has hypertension and hyperlipidemia which are managed with Lisinopril, Metoprolol, and
Crestor. He was advised aspirin for stroke prevention but has been noncompliant with this medication. This is not listed on his medication list. He generally feel well today and denies any current complaints such as chest pain, shortness of breath
at rest, palpitations, dizziness, fever, chills, nausea, vomiting, or diarrhea.
Medical History
Past Medical History
Past Medical History: Reports Other
Additional Past Medical History:
1. Ventricular tachycardia, status post Medtronic biventricular ICD 01/2017.
2. Congestive heart failure, reduced ejection fraction.
3. Hypertension.
4. Hyperlipidemia.
5. Dilated cardiomyopathy.
6. Left bundle branch block.
7. Paroxysmal atrial fibrillation, pharmacological therapy with Metoprolol Succinate and no current oral anticoagulation.
7. Mild mitral regurgitation.
8. Mild aortic regurgitation.
10. Mild-moderate tricuspid regurgitation.
11. Right to left shunt with small PFO noted on LYNN 2018.
12. COPD with asthmatic component.
13. Obstructive sleep apnea, noncompliant with device.
14. 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
15. Pancreatic cancer with metasasis to liver, currently undergoing chemotherapy.
16. Chemo-induced neuropathy.
17. Pancytopenia.
18. Gout.
19. History of C Diff 2017.
20. Pre-operative leukocytosis in the setting of recent Nyvepria injection, asymptomatic.
21. History of alcohol abuse.
Past Surgical History: Reports Other
Additional Past Surgical History:
Medtronic biventricular ICD implantation.
Social History
Tobacco: Non-smoker
Alcohol: Former (Previous history of alcohol abuse per records. The patient last drank alcohol 1 and a half years ago. )
Living: Alone (in a 1 story home. )
Family History
Family History: Not pertinent
Allergies / Home Medications
Allergy/Medication List:
Home medications:
1. Albuterol-budesonide 90-80 mcg inhaler 2 inhalations up to every 4 hours as needed.
2. Advair HFA 2 puffs inhaled twice a day as needed.
3. Lisinopril 5 mg p.o. daily.
4. Magnesium oxide 500 mg p.o. every other day.
5. Metoprolol Succinate 50 mg p.o. twice a day.
6. Centrum silver multivitamin 1 tablet p.o. daily.
7. Rosuvastatin 20 mg p.o. daily.
Allergies: No known allergies.
Review of Systems
-
A 12 point ROS was completed and negative except as noted: Yes
Physical Exam
Vital Signs
Blood pressure 155/94. Heart rate 75. Respirations 18. Pulse ox 99% on room air.
Height 5 feet, 8.5 inches. Weight 75.7 kg. BMI 25.0.
Physical Exam
General: Well Developed, Well Nourished, No Apparent Distress and Other (Chemo port site intact. )
HEENT: NormoCephalic, Moist mucous membranes and Atraumatic
Respiratory: Clear
Cardiac: Regular Rhythm and Other (ICD site intact. )
GI: Soft, Non Tender and Non Distended
Musculoskeletal: Normal Gait & Station
Skin: Warm and Dry
Neuro: AO x 3 and Nonfocal/grossly intact
Laboratory Results
-
DIAGNOSTIC STUDIES as of 10/06/2024: White blood cell count 16.0. Hemoglobin 11.6. Platelet count 80,000. Sodium 139. Potassium 3.7. BUN 13. Creatinine 0.7. Glucose 111. Calcium 9.3. AST 32. ALT 17. Albumin 4.2.
EKG 10/06/2024: AV dual-paced rhythm with occasional ventricular-paced complexes and with occasional premature ventricular complexes. Biventricular pacemaker detected.
Echocardiogram 10/17/2023: Moderately reduced left ventricular systolic function. Estimated left ventricular ejection fraction is 40%. Mild mitral regurgitation. Mild aortic regurgitation. Mild to moderate tricuspid regurgitation. Estimated
pulmonary artery pressure of 52 mmHg. Compared to prior study of May 2022, PASP has increased.
Impression/Plan
-
IMPRESSION/PLAN:
1. Ventricular tachycardia and congestive heart failure: The patient is in need of a biventricular ICD generator change with Dr. Rambo Hernandes on 10/08/2024. The benefits and risks of the procedure have been explained to the patient. The patient
understands these risks and wishes to proceed. He can proceed with chemotherapy 1 week post-procedure as long as his incision is healing appropriately.
[2024-10-06 10:58] LABS: ALT (SGPT) 17 U/L (0-50); AST (SGOT) 32 U/L (17-59); Albumin 4.2 g/dl (3.5-5.0); Alkaline Phosphatase 169 U/L (38-126); Blood Urea Nitrogen 14 mg/dl (9-20); Calcium 9.3 mg/dl (8.4-10.2); Carbon Dioxide 28 mmol/L (22-30); Chloride 101 mmol/L (98-107); Estimated Creatinine Clearance 94 ml/min; Glucose 111 mg/dl (70-99); Potassium 3.7 mmol/L (3.5-5.1); Sodium 139 mmol/L (135-145); Total Bilirubin 0.5 mg/dl (0.2-1.3); Total Protein 6.6 g/dl (6.3-8.2); eGFR > 60.00
[2024-10-06 11:04] LABS: Hematocrit 34.3 % (39.0-52.0); Hemoglobin 11.6 g/dL (13.0-18.0); Mean Corp Hgb Conc. 33.8 g/dL (33.0-37.0); Mean Corpuscular Hgb 36.9 pg (27.0-31.0); Mean Corpuscular Volume 109.2 fL (80.0-94.0); Red Blood Cell Count 3.14 10^6/uL (4.70-6.10); Red Cell Dist. Width 17.8 % (11.5-14.5)
[2024-10-06 11:50] LABS: % Basophils 0.1 % (0-2); % Eosinophils 1.1 % (0-6); % Immature Granulocytes 1.1 % (0-0.5); % Lymphocytes 8.3 % (20.5-51.1); % Monocytes 10.3 % (1.7-9.3); % Neutrophils 79.1 % (42.2-75.2); Absolute Eosinophils 0.2 10^3/uL (0-0.7); Absolute Immature Granulocytes 0.2 10^3/uL (0-0.05); Absolute Lymphocytes 1.3 10^3/uL (1.2-3.4); Absolute Monocytes 1.7 10^3/uL (0.1-0.6); Absolute Neutrophils 12.6 10^3/uL (1.4-6.5); Mean Platelet Volume 11.9 fL (7.4-10.4); Nucleated Red Blood Cells % 0 % (-); Platelet Count 80 10^3/uL (130-400)
[2024-10-06 11:51] LABS: Normal RBC Morphology No
[2024-10-06 11:52] LABS: Acanthocytes FEW; Anisocytosis 1+; Hypochromasia 1+; Ovalocytes 1+; Polychromasia 1+; Tear Drop Red Blood Cells 1+
[2024-10-08 10:16] VITALS: BP 152/86; BMI 25.2
--- NOTE | 2024-10-08 10:42 | W.ICD.CONTRA ---
Post ICD/SUPERVISOR SPECIAL SERVICES-D
-
History of MT?: No
LV Function
Left ventricular function study result?: Ejection Fraction >35% - <40%
ACEI/ARB/ARNI
Patient already on ACEI/ARB/ARNI: Yes
Beta-Guillermina
Patient already on Beta Guillermina: Yes
[2024-10-08 14:44] VITALS: BP 118/69
--- NOTE | 2024-10-08 15:05 | ITS.CL.ICD ---
Addendum entered and electronically signed by Rambo Hernandes MD 10/08/24 16:29:
A Medtronic, Tyrx fully absorbable antibacterial envelope (Ref [id number]; Lot [id number]; use before 06/30/2925) was used in the pocket to minimize the risk of pocket infection.
Original Note:
Regional Maintenance Manager - ICD
Implantable Cardioverter Defibrillator
Procedure Report:
Date of Procedure: October 08, 2024.
Procedures: ICD Pulse Generator Explantation, ICD Pulse Generator Implantation, and Pocket Revision.
Indication: Secondary prevention ICD. His ICD placed in 2017 was for sustained ventricular tachycardia. He has had multiple appropriate VT episodes treated successfully with ATP. NYHA heart failure class II for more than 60 months. LVEF in 2017 was
35% (cath and echo). Most recent LVEF 40%. QRS duration 152 ms with a RBB BiV paced morphology. He has a known nonischemic cardiomyopathy. No history of prior [place]. Complete heart block. Pacemaker dependent. Life expectancy is over 1 year.
Performing physician: Rambo Hernandes MD, [facility].
Implant: ICD Pulse Generator: [employer]; Model# [id number]; Serial# [id number].
Explanted ICD Pulse Generator (Implanted 02/06/2017): Medtronic; [id number], SN [id number].
Three Retained Leads (Implanted 02/06/2017):
RA Lead: Medtronic 5076, SN [id number].
RV Lead: Medtronic [id number], SN [id number].
LV Lead: Medtronic 4298, SN [id number].
Technique: A time-out was performed. The procedure site was identified. The anesthesia service anesthetized the patient. Preoperative cefazolin was administered before the skin incision. The patient was prepped and draped in the usual fashion. Local
anesthetic was applied to the left pre-pectoral subcutaneous tissue. A 3-inch incision was made over the pulse generator along the prior scar. The capsule was entered with PlasmaBlade cautery. The old ICD pulse generator was explanted. No cautery
was applied to the lead system. The leads were appropriately attached to the new ICD pulse generator. The pocket was irrigated with an antibiotic solution. Hemostasis was excellent. The device and leads were placed in the pocket. The incision was
closed in three layers with an absorbable suture. Steri-strips and an silver impregnated dressing were applied. There was no blood loss. There were no complications. No fluoroscopy was used.
Lead Analysis:
RA lead: P: 1.8 mV; Threshold: 0.5 V @ 0.4 ms; Impedance: 304 ohms.
RV lead: R: n/a; Threshold: 0.75 V @ 0.4 ms; Impedance: 323 ohms. HVB 68 ohms.
LV lead: R: n/a; Threshold: 1 V @ 0.4 ms; Impedance: 798 ohms.
Final Programming: VT 133 bpm; VF 188 bpm; David: DDDR 60-110 bpm.
Conclusion: Uncomplicated ICD change. The ICD system is MRI safe/conditional.
Recommendation: Routine post ICD care.
cc: Janna Bradford MD, Carol Potts MD, and KRIS Hatch.
--- NOTE | 2024-10-08 15:10 | PTCARENOTE ---
Dr Hernandes at pt bedside speaking to pt and pt's daughter.
[2024-10-08 15:12] VITALS: BP 130/83
[2024-10-08 15:27] VITALS: BP 146/79
[2024-10-08 15:36] VITALS: BP 131/80
[2024-10-08 15:41] VITALS: BP 132/71
--- NOTE | 2024-10-08 15:45 | PTCARENOTE ---
My LINNP out to assess pt's left anterior chest ICD site dressing. My EXECUTIVE PERSONAL ASSISTANT states pt ok for discharge. Pt's daughter is at pt bedside.
== END 2024-10-08 15:55 | disposition home or self-care (01) ==
LOC: CATH 09:50
PROVIDERS: ATTENDING PHYSICIAN Internal Medicine Cardiovascular Disease; FAMILY PHYSICIAN Nurse Practitioner Family; OTHER PHYSICIAN Internal Medicine Cardiovascular Disease
DX: Z45.02 Encounter for adjustment and management of automatic implantable cardiac defibrillator (principal); I47.20 Ventricular tachycardia, unspecified; I50.22 Chronic systolic (congestive) heart failure; I11.0 Hypertensive heart disease with heart failure; I42.0 Dilated cardiomyopathy; I44.7 Left bundle-branch block, unspecified; I08.2 Rheumatic disorders of both aortic and tricuspid valves; I69.920 Aphasia following unspecified cerebrovascular disease; I69.998 Other sequelae following unspecified cerebrovascular disease; I69.919 Unspecified symptoms and signs involving cognitive functions following unspecified cerebrovascular disease; J44.89 Other specified chronic obstructive pulmonary disease; G47.33 Obstructive sleep apnea (adult) (pediatric); C25.9 Malignant neoplasm of pancreas, unspecified; C78.7 Secondary malignant neoplasm of liver and intrahepatic bile duct; G62.9 Polyneuropathy, unspecified; D61.818 Other pancytopenia; M10.9 Gout, unspecified; D72.829 Elevated white blood cell count, unspecified; F10.11 Alcohol abuse, in remission; Z79.899 Other long term (current) drug therapy; Z79.51 Long term (current) use of inhaled steroids; E78.5 Hyperlipidemia, unspecified
CPT/HCPCS: 33264; 36415; 80053; 85025; 93005; C1882

== ENCOUNTER → 2024-10-11 16:06 | Outpatient (REF) | payer OTHER, SELFPAY ==
[2024-10-11 09:28] LABS: % Basophils 0.4 % (0-2); % Eosinophils 1.8 % (0-6); % Immature Granulocytes 0.4 % (0-0.5); % Monocytes 8.4 % (1.7-9.3); Absolute Eosinophils 0.1 10^3/uL (0-0.7); Absolute Lymphocytes 1.4 10^3/uL (1.2-3.4); Absolute Monocytes 0.7 10^3/uL (0.1-0.6); Absolute Neutrophils 5.8 10^3/uL (1.4-6.5); Hematocrit 33.1 % (39.0-52.0); Hemoglobin 10.9 g/dL (13.0-18.0); Mean Corp Hgb Conc. 32.9 g/dL (33.0-37.0); Mean Corpuscular Hgb 37.5 pg (27.0-31.0); Mean Corpuscular Volume 113.7 fL (80.0-94.0); Mean Platelet Volume 11.4 fL (7.4-10.4); Nucleated Red Blood Cells % 0 % (-); Platelet Count 107 10^3/uL (130-400); Red Blood Cell Count 2.91 10^6/uL (4.70-6.10); Red Cell Dist. Width 17.1 % (11.5-14.5)
[2024-10-11 09:41] LABS: ALT (SGPT) 15 U/L (0-50); AST (SGOT) 27 U/L (17-59); Albumin 3.9 g/dl (3.5-5.0); Alkaline Phosphatase 122 U/L (38-126); Blood Urea Nitrogen 13 mg/dl (9-20); Carbon Dioxide 26 mmol/L (22-30); Chloride 104 mmol/L (98-107); Glucose 107 mg/dl (70-99); Potassium 4.2 mmol/L (3.5-5.1); Sodium 138 mmol/L (135-145); Total Bilirubin 0.5 mg/dl (0.2-1.3); Total Protein 6.2 g/dl (6.3-8.2); eGFR > 60.00
== END ==
LOC: OIDL 16:06
PROVIDERS: ATTENDING PHYSICIAN Internal Medicine Hematology & Oncology
DX: C25.0 Malignant neoplasm of head of pancreas (principal); C78.7 Secondary malignant neoplasm of liver and intrahepatic bile duct; D64.9 Anemia, unspecified; D63.0 Anemia in neoplastic disease; E87.6 Hypokalemia; E83.51 Hypocalcemia
CPT/HCPCS: 80053; 85025

== ENCOUNTER → 2024-11-01 11:41 | Outpatient (REF) | payer OTHER, SELFPAY ==
[2024-11-01 09:09] LABS: % Basophils 0.2 % (0-2); % Immature Granulocytes 0.2 % (0-0.5); % Lymphocytes 27.7 % (20.5-51.1); % Monocytes 9.9 % (1.7-9.3); Absolute Eosinophils 0.2 10^3/uL (0-0.7); Absolute Lymphocytes 1.4 10^3/uL (1.2-3.4); Absolute Monocytes 0.5 10^3/uL (0.1-0.6); Absolute Neutrophils 2.9 10^3/uL (1.4-6.5); Hematocrit 36.3 % (39.0-52.0); Hemoglobin 11.9 g/dL (13.0-18.0); Mean Corp Hgb Conc. 32.8 g/dL (33.0-37.0); Mean Corpuscular Hgb 35.5 pg (27.0-31.0); Mean Corpuscular Volume 108.4 fL (80.0-94.0); Mean Platelet Volume 9.9 fL (7.4-10.4); Platelet Count 147 10^3/uL (130-400); Red Blood Cell Count 3.35 10^6/uL (4.70-6.10); Red Cell Dist. Width 14.2 % (11.5-14.5); White Blood Cell Count 4.9 10^3/uL (4.8-10.8)
[2024-11-01 10:13] LABS: ALT (SGPT) 16 U/L (0-50); AST (SGOT) 29 U/L (17-59); Albumin 3.9 g/dl (3.5-5.0); Alkaline Phosphatase 97 U/L (38-126); Blood Urea Nitrogen 20 mg/dl (9-20); Calcium 9.2 mg/dl (8.4-10.2); Carbon Dioxide 29 mmol/L (22-30); Chloride 102 mmol/L (98-107); Glucose 108 mg/dl (70-99); Potassium 4.4 mmol/L (3.5-5.1); Sodium 139 mmol/L (135-145); Total Bilirubin 0.5 mg/dl (0.2-1.3); Total Protein 6.3 g/dl (6.3-8.2); eGFR > 60.00
[2024-11-02 22:21] LABS: CA 19-9 217 U/mL (<=35)
== END ==
LOC: OIDL 11:41
PROVIDERS: ATTENDING PHYSICIAN Internal Medicine Hematology & Oncology
DX: C25.0 Malignant neoplasm of head of pancreas (principal)
CPT/HCPCS: 80048; 80076; 85025; 86301

== ENCOUNTER → 2024-11-22 12:23 | Outpatient (REF) | payer OTHER, SELFPAY ==
[2024-11-22 09:58] LABS: % Basophils 0.1 % (0-2); % Eosinophils 1.7 % (0-6); % Immature Granulocytes 0.2 % (0-0.5); % Lymphocytes 15.4 % (20.5-51.1); % Monocytes 10.8 % (1.7-9.3); % Neutrophils 71.8 % (42.2-75.2); Absolute Eosinophils 0.1 10^3/uL (0-0.7); Absolute Lymphocytes 1.3 10^3/uL (1.2-3.4); Absolute Monocytes 0.9 10^3/uL (0.1-0.6); Absolute Neutrophils 6.1 10^3/uL (1.4-6.5); Hematocrit 37.7 % (39.0-52.0); Hemoglobin 12.7 g/dL (13.0-18.0); Mean Corp Hgb Conc. 33.7 g/dL (33.0-37.0); Mean Corpuscular Hgb 35.2 pg (27.0-31.0); Mean Corpuscular Volume 104.4 fL (80.0-94.0); Mean Platelet Volume 9.6 fL (7.4-10.4); Platelet Count 190 10^3/uL (130-400); Red Blood Cell Count 3.61 10^6/uL (4.70-6.10); Red Cell Dist. Width 15.5 % (11.5-14.5); White Blood Cell Count 8.5 10^3/uL (4.8-10.8)
[2024-11-22 11:22] LABS: ALT (SGPT) 15 U/L (0-50); AST (SGOT) 33 U/L (17-59); Alkaline Phosphatase 102 U/L (38-126); Blood Urea Nitrogen 15 mg/dl (9-20); Calcium 9.1 mg/dl (8.4-10.2); Carbon Dioxide 27 mmol/L (22-30); Chloride 103 mmol/L (98-107); Direct Bilirubin 0.1 mg/dl (0.0-0.4); Glucose 88 mg/dl (70-99); Potassium 4.3 mmol/L (3.5-5.1); Sodium 138 mmol/L (135-145); Total Bilirubin 0.4 mg/dl (0.2-1.3); Total Protein 6.2 g/dl (6.3-8.2); eGFR > 60.00
== END ==
LOC: OIDL 12:23
PROVIDERS: ATTENDING PHYSICIAN Internal Medicine Hematology & Oncology
DX: C25.0 Malignant neoplasm of head of pancreas (principal)
CPT/HCPCS: 80048; 80076; 85025

== ENCOUNTER → 2024-12-16 13:34 | Outpatient (REF) | payer OTHER, SELFPAY | LOC: RAD 13:34 | PROVIDERS: ATTENDING PHYSICIAN Internal Medicine Hematology & Oncology; FAMILY PHYSICIAN Nurse Practitioner Family | DX: C25.0 Malignant neoplasm of head of pancreas (principal); C78.7 Secondary malignant neoplasm of liver and intrahepatic bile duct; C64.9 Malignant neoplasm of unspecified kidney, except renal pelvis; C83.51 Lymphoblastic (diffuse) lymphoma, lymph nodes of head, face, and neck | CPT/HCPCS: 71260; 74177; Q9967 ==

== ENCOUNTER 2025-01-21 19:24 | Inpatient (IN) | payer OTHER, SELFPAY ==
[2025-01-21 12:39] VITALS: BP 128/82
[2025-01-21 13:19] LABS: % Basophils 0.2 % (0-2); % Eosinophils 0.8 % (0-6); % Immature Granulocytes 0.3 % (0-0.5); % Lymphocytes 11.5 % (20.5-51.1); % Monocytes 7.9 % (1.7-9.3); % Neutrophils 79.3 % (42.2-75.2); Absolute Eosinophils 0.1 10^3/uL (0-0.7); Absolute Monocytes 0.7 10^3/uL (0.1-0.6); Absolute Neutrophils 7.1 10^3/uL (1.4-6.5); Hematocrit 38.5 % (39.0-52.0); Hemoglobin 13.2 g/dL (13.0-18.0); Mean Corp Hgb Conc. 34.3 g/dL (33.0-37.0); Mean Corpuscular Hgb 32.8 pg (27.0-31.0); Mean Corpuscular Volume 95.5 fL (80.0-94.0); Nucleated Red Blood Cells % 0 % (-); Red Blood Cell Count 4.03 10^6/uL (4.70-6.10); Red Cell Dist. Width 13.5 % (11.5-14.5)
[2025-01-21 13:24] LABS: APTT 25.3 Sec (23.4-35.0); PT 14.5 Sec (11.4-14.6)
[2025-01-21 13:32] LABS: ALT (SGPT) 39 U/L (0-50); AST (SGOT) 143 U/L (17-59); Albumin 3.6 g/dl (3.5-5.0); Alkaline Phosphatase 180 U/L (38-126); Blood Urea Nitrogen 19 mg/dl (9-20); Carbon Dioxide 31 mmol/L (22-30); Chloride 98 mmol/L (98-107); Glucose 119 mg/dl (70-99); Sodium 136 mmol/L (135-145); Total Bilirubin 1.3 mg/dl (0.2-1.3); Total Protein 6.4 g/dl (6.3-8.2); eGFR > 60.00
[2025-01-21 13:34] LABS: Troponin I 0.018 ng/ml
[2025-01-21 13:48] LABS: Calcium 14.9 mg/dl (8.4-10.2)
--- NOTE | 2025-01-21 14:22 | EDRN ---
Verbal consent obtained from patient for HIV and hepatitis lab draw due to needle stick exposure.
[2025-01-21 14:50] LABS: Hepatitis B Surface Antigen Negative (Negative)
--- NOTE | 2025-01-21 15:02 | ED.GENMED ---
History of Present Illness
General
Chief Complaint: Visual Problem
Source: patient
Exam Limitations: none
Time Seen by Provider: 01/21/25 14:46
History of Present Illness
History of Present Illness:
See MDM
Past History
Past History
ED Past Medical History: Arrthythmia, Asthma, Cancer and HTN
ED Past Surgical History: None
Social History
Tobacco: Smoker
Alcohol: Daily
Drug: None
Personal: Single
Phy Exam
Physical Exam
Physical Exam:
See MDM
Course
Orders/Labs/Results
Orders:
Orders
01/21/25 12:45
Electrocardiogram (*1) Urgent
Reason for Study: Other
Other Reason for Exam: Possible Stroke
EKG- Treatment ONCE
01/21/25 12:58
Complete Blood Count/With Diff Urgent
Comprehensive Metabolic Panel Urgent
HIV Combo Stat
Hepatitis B Surface Antigen Stat
Hepatitis C Antibody Stat
PTT Urgent
Prothrombin Time Urgent
Troponin I Urgent
01/21/25 14:59
Add On- LAB Urgent
Tests Added?: PTH
CT Head W/o Iv Contrast Urgent
Comment:
Reason For Exam: blurry vision, pancreatitc cancer
01/21/25 17:39
Calcium Urgent
Abnormal Lab Results
01/21/25
12:58
RBC 4.03 L 10^6/uL
(4.70-6.10)
Hct 38.5 L %
(39.0-52.0)
MCV 95.5 H fL
(80.0-94.0)
MCH 32.8 H pg
(27.0-31.0)
Absolute Neuts (auto) 7.1 H 10^3/uL
(1.4-6.5)
Absolute Lymphs (auto) 1.0 L 10^3/uL
(1.2-3.4)
Absolute Monos (auto) 0.7 H 10^3/uL
(0.1-0.6)
Neutrophils % 79.3 H %
(42.2-75.2)
Lymphocytes % 11.5 L %
(20.5-51.1)
Carbon Dioxide 31 H mmol/L
(22-30)
Glucose 119 H mg/dl
(70-99)
Calcium 14.9 H* mg/dl
(8.4-10.2)
AST 143 H U/L
(17-59)
Alkaline Phosphatase 180 H U/L
(38-126)
01/21/25 12:58
01/21/25 12:58
Vital Signs
Initial and Last Documented VS:
Initial Vital Signs
Temp Pulse Resp BP Pulse Ox
98.2 F 62 16 128/82 99
01/21/25 12:39 01/21/25 12:39 01/21/25 12:39 01/21/25 12:39 01/21/25 12:39
Last Documented Vital Signs
Temp Pulse Resp BP Pulse Ox
98.2 F 68 20 126/68 98
01/21/25 12:39 01/21/25 15:57 01/21/25 15:57 01/21/25 15:57 01/21/25 15:57
MDM/Problems Addressed
Differential Diagnosis Includes:
HPI and MDM Narrative:
74-year-old male presenting for evaluation of generalized fatigue, dehydration, abdominal cramping and blurry vision. This apparently has been going on for several days. He does have active pancreatic cancer and his last chemotherapy was a month
ago. His daughter visited him today and realized that he was off. They called the PCP and it appears that he has been intermittent A-fib. Based on the intermittent A-fib and the blurry vision, he was sent in for possible strokelike symptoms. I
discussed with patient and daughter that visual involvement would mean visual field cut. Patient denies any visual field cut and that is confirmed on exam. Blood work was done prior to my evaluation showing concern for hypercalcemia. Will start
IV fluids. Endocrinology was curb sided and we discussed checking PTH. If PTH is above 20, it may be beneficial to start Sensipar
Physical exam
General: Well appearing and non-toxic
HEENT: protecting airway. Dry mucous membranes. No visual field cut. EOMI
Neck: supple
CV: No evidence of cyanosis. Regular rate and rhythm
Resp: No accessory muscle use
Abd: Non-distended. Soft and nontender
Extremities: No deformities
Neuro: alert. No focal deficit
Psych: Normal affect
Skin: Intact
Problems Addressed including Acute and Chronic Conditions affecting care:
1. Hypercalcemia
Acuity: acute
Prognosis: unstable
Details: Given that he is clinically dry, will start with IV fluids. Will check PTH to see if he is a candidate for Sensipar
2. Blurry vision
Acuity: acute
Prognosis: stable
Details: Likely in the setting of hypercalcemia. Will obtain CT head given his cancer history
Updates
Radiology believes there could be brain mets. Will give dose of Decadron
Differential Diagnosis (but not limited to): Hypercalcemia, TIA, dehydration
Testing considered: Urinalysis
Drug therapy (if applicable): OTC meds, please see d/c instruction regarding Rx drugs
Amount and/or Complexity of Data Reviewed
Clinical info obtained from: Patient
External data reviewed: N/A
Labs I independently reviewed (but not limited to): Hypercalcemia
Radiology: The CT scan was personally and independently reviewed. In addition, official CT report reviewed.
Pulse Ox: not hypoxic
EKG independently reviewed: Paced rhythm, PVCs, left axis, no STEMI
Agriculture Instructor: Paced rhythm
Critical Care: The high probability of a clinically significant, sudden or life threatening deterioration of the endocrine system(s) required my full and direct attention, intervention and personal management. The aggregate critical care time was 33
minutes. This time is in addition to time spent performing reported procedures but includes the following:
[x] Data Review and interpretation
[x] Patient assessment and monitoring of vital signs
[x] Documentation
[x] Medication orders and management
Risk of Complication:
Social Determinants of health: Good social support
Discussed with other providers: Endocrine, hospitalist
Escalation of Care includes Admit/Obs: Given the symptomatic hypercalcemia, will admit for IV fluids and further evaluation
Occasional wrong word or 'sound a like' substitutions may have occurred due to the inherent limitations of voice recognition software. Read the chart carefully and recognize, using context, where substitutions have occurred.
*Critical Care Note
Total Time (30-74mins, 75-104mins- exclusive of procedures): 33 min
ED Attending Note
-
Portions of this chart may have been created with voice recognition software.� Occasional wrong word or��sound alike� substitutions may have occurred due to the inherent limitations of voice recognition software.
Discharge Plan
Departure
Patient Disposition: Admit
Date of Disposition: 01/21/25
Time of Disposition: 15:07
Admit to: Telemetry
Presentation/result/management discussed w/ accepting MD/DO: Hospitalist
Discharge Problem:
Hypercalcemia
Prescriptions:
No Action
rosuvastatin 20 mg Tablet
20 mg PO QPM
metoprolol succinate 50 mg Tablet Extended Release 24 Hr
25 mg PO BID
lisinopril 5 mg Tablet
5 mg PO DAILY
Theragen Tablet
1 tab PO NOON
albuterol sulfate 90 mcg/actuation Hfa Aerosol Inhaler
2 puff INHALATION R Q4HPRN PRN (Reason: wheezing)
guaifenesin [Mucinex] 600 mg Tablet Extended Release 12hr
600 mg PO [id number] PRN (Reason: cough)
magnesium oxide 400 mg magnesium Tablet
400 mg PO Q48H
Interventions
Interventions:
*Risk Screen - Suicide Last Done: 01/21/25 12:39
*Neglect/Abuse Screening Last Done: 01/21/25 12:39
ED- Neurological Assessment Last Done: 01/21/25 14:35
ED-EENT Assessment Last Done: 01/21/25 14:36
Discharge Date and Time
Print Language: NICARAGUAN
[2025-01-21 15:07] LABS: Hepatitis C Antibody Negative (Negative)
[2025-01-21 15:10] LABS: HIV Combo Negative (Negative)
[2025-01-21 15:57] VITALS: BP 126/68
--- NOTE | 2025-01-21 17:35 | VATNOTE ---
Patient has a right subq port, slightly red, has a visable open skin pore that is clogged size of 1mm in the center of port. Patient states its been there for years and doctors OK use of port. attempted access above pore- no blood return. patient
states this is a common issue he has. removed access and placed right accessory cephalic 20g IV.
--- NOTE | 2025-01-21 18:04 | HPS.HSE ---
Addendum entered and electronically signed by KRIS Cai 01/21/25 20:17:
Per Oncology, change Zometa 4mg to Pamidronate 90mg
Original Note:
Family Physician
-
Family Physician: Verenice Azevedo NP
Chief Complaint
-
generalized weakness, blurry vision
History of Present Illness
Patient is a 74-year-old male with past medical history significant for pancreatic cancer with metastasis to liver, HFrEF, hypertension, hyperlipidemia and paroxysmal atrial fibrillation who presented to [facility] ED for evaluation of
generalized weakness and blurry vision. Patient reports that last week he had flu like symptoms and has not recovered and is now having unsteady gait, denies any falls, blurry vision. He reports having subjective fevers of feeling hot, chills with
rigors and decreased appetite. These have all resolved and he continues with generalized weakness, decreased appetite and blurry vision. He denies any cough, shortness of breath, chest pain, vomiting, constipation, diarrhea or urinary symptoms.
Patient receiving treatment for pancreatic cancer with [facility], last chemo was 4-6 weeks ago.
Medical History
Past Medical History
Past Medical History: Reports Other
Additional Past Medical History:
Ventricular tachycardia, status post Medtronic biventricular ICD 01/2017.
Congestive heart failure, reduced ejection fraction.
Hypertension.
Hyperlipidemia.
Dilated cardiomyopathy.
Left bundle branch block.
Paroxysmal atrial fibrillation, pharmacological therapy with Metoprolol Succinate and no current oral anticoagulation.
Mild mitral regurgitation.
Mild aortic regurgitation.
Mild-moderate tricuspid regurgitation.
Right to left shunt with small PFO noted on LYNN 2017.
COPD with asthmatic component.
Obstructive sleep apnea, noncompliant with device.
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
Pancreatic cancer with metastasis to liver, currently undergoing chemotherapy.
Chemo-induced neuropathy.
Pancytopenia.
Gout.
History of C Diff 2017.
Pre-operative leukocytosis in the setting of recent Nyvepria injection, asymptomatic.
History of alcohol abuse.
Past Surgical History: Reports Other
Additional Past Surgical History:
Medtronic biventricular ICD implantation.
Social History
Tobacco: Non-smoker
Alcohol: Former (Previous history of alcohol abuse per records. The patient last drank alcohol 1 and a half years ago. )
Drug: None
Living: Alone (in a 1 story home. )
Employment: Retired
Family History
Family History: Not pertinent
Allergies / Home Medications
Allergies reflects when Allergies were last updated in [facility].
Home Medications with original date entered in [facility]
Allergy/Medication List:
Allergies
Allergy/AdvReac Type Severity Reaction Status Date / Time
No Known Allergies Allergy Verified 01/21/25 12:38
Home Medications
rosuvastatin 20 mg tablet 20 mg PO QPM High cholesterol 02/23/23
lisinopril 5 mg tablet 5 mg PO DAILY 10/05/24
metoprolol succinate 50 mg tablet,extended release 24 hr 25 mg PO BID 10/05/24
albuterol sulfate 90 mcg/actuation aerosol inhaler 2 puff inhalation R Q4HPRN PRN wheezing 01/21/25
guaifenesin 600 mg tablet, extended release 12 hr (Mucinex) 600 mg PO [id number] PRN cough 01/21/25
magnesium oxide 400 mg PO Q48H 01/21/25
therapeutic multivitamin 1 tab PO NOON 01/21/25
Review of Systems
-
History Source: Patient
Constitutional: Reports Fever, Fatigue and Chills
EENT: Reports Other (blurry vision )
Respiratory: Reports No Symptoms
Cardiac: Reports No Symptoms
Abdomen/GI: Reports Nausea and Anorexia
: Reports No Symptoms
Musculoskeletal: Reports No Symptoms
Skin: Reports No Symptoms
Neurological: Reports No Symptoms
Endocrine: Reports No Symptoms
Hematologic/Lymphatic: Reports No Symptoms
Psych: Reports No Symptoms
Physical Exam
Vital Signs
Vital Signs
Temp Pulse Resp BP Pulse Ox
98.2 F 68 20 126/68 98
01/21/25 12:39 01/21/25 15:57 01/21/25 15:57 01/21/25 15:57 01/21/25 15:57
Physical Exam
General: Well Developed, No Apparent Distress, Comfortable and Conversant
HEENT: NormoCephalic, Moist mucous membranes, Atraumatic, Duc[place]ne Conjunctivae, Nose Appears Normal and Ears Appear Normal
Respiratory: Clear and Non Labored Respirations
Cardiac: S1/S2 and Regular Rhythm; No Murmur, Rub or Gallop
Breast: Deferred by me
GI: Soft, Non Tender, Non Distended and Normal Bowel Sounds; No Organomegaly
Rectal: Deferred by Provider
Genito-urinary: Deferred by me
Musculoskeletal: No Clubbing, No Cyanosis and No Edema
Skin: IV/Catheter Site; No Rash
Neuro: Awake, Alert, AO x 3 and Nonfocal/grossly intact
Psych: Calm and Intact Judgment/Insight
Laboratory Results
-
01/21/25 12:58
01/21/25 12:58
Laboratory Results
PT 14.5 Sec (11.4-14.6) 01/21/25 12:58
INR 1.10 01/21/25 12:58
APTT 25.3 Sec (23.4-35.0) 01/21/25 12:58
Total Bilirubin 1.3 mg/dl (0.2-1.3) 01/21/25 12:58
AST 143 U/L (17-59) H 01/21/25 12:58
ALT 39 U/L (0-50) 01/21/25 12:58
Alkaline Phosphatase 180 U/L (38-126) H 01/21/25 12:58
Troponin I 0.018 ng/ml 01/21/25 12:58
Data Reviewed
-
Medical Tests (Nuc Med, Echo, EKG etc): Report Reviewed by me (EKG: AV dual-paced rhythm WITH OCCASIONAL ventricular-paced complexes Biventricular pacemaker detected)
Lab Data: Labs Reviewed by me (Ca 14.9, )
Impression/Plan
-
IMPRESSION/PLAN:
#blurry vision, generalized weakness, decreased appetite, unsteady gait
#hypercalcemia 2/2 hyperparathyroid vs. malignant
Ca 14.9, PTH (pending)
Head CT: New small rounded cortical hyperdensity in the right frontal lobe with mild surrounding edema suggestive of metastatic disease. MRI examination recommended for confirmation.
Nonacute left temporoparietal infarct. New from previous exam.
Severe bilateral frontal atrophy. Stable
- Admit to telemetry
- if PTH is above 20, it may be beneficial to start Sensipar per endocrinology
- IVF NSS
- Zometa
- monitor BMP
#pancreatic cancer with metastasis to liver
treated at [facility], last chemo 4-[address]: New small rounded cortical hyperdensity in the right frontal lobe with mild surrounding edema suggestive of metastatic disease. MRI examination recommended for confirmation.
Nonacute left temporoparietal infarct. New from previous exam.
Severe bilateral frontal atrophy. Stable
Most recent plan from Oncology dated 12/18/[address] Potts: Patient has been on chemotherapy since diagnosis, now with unacceptable cumulative toxicity.
Discontinue chemotherapy now.
- Consult Oncology
- Brain MRI in morning
#essential hypertension
- continue lisinopril
#hyperlipidemia
- continue rosuvastatin
#paroxysmal atrial fibrillation
EKG: AV dual-paced rhythm WITH OCCASIONAL ventricular-paced complexes
Biventricular pacemaker detected
- continue metoprolol
#asthma
- continue albuterol HFA
- continue guaifenesin PRN
#HFrEF
ECHO (10/17/23): Moderately reduced left ventricular systolic function. Estimated left ventricular ejection fraction is 40%.
Mild mitral regurgitation.
Mild aortic regurgitation.
Mild to moderate tricuspid regurgitation. Estimated pulmonary artery pressure of 52 mmHg.
- daily weights
Code status: full code
DVT prophylaxis: Lovenox Sq
[2025-01-21] MEDS: DECADRON 10 MG IV (18:58)
[2025-01-21 19:03] VITALS: BP 122/74
--- NOTE | 2025-01-21 19:18 | W.PN.UPDATE ---
Update Note
Progress Note Update
This note serves as an addendum to the H&P by car knocker ELTON Aym Saavedra
HPI
74M with metastatic acinar cell Pancreatic CA, multifocal focal hepatic metastatic dz,, HX SMV and portal vein thrombosis complicated by possible ischemic colitis plus likely ischemic enteritis
last chemo was 4-6 weeks ago> As per oncologist( Dr Potts) note as of 12/18/24 - mixed response to chemo since Dxs of Pancreas CA Dx. Opted to stop chemo due to toxicity of chemo out weigh the benifits
HX asthma leading to COPD, Essential HTN, HX NICM with LVEF 40 %, HX chr HFrEF, AV Dual chamber PM, HX CVA
- generalized weakness, nausea , blurry vision
- Noted Ca 14
- Onco suggest IVF and IV Zometa ( Bi phosphonate)
PHX; see above
Reviewed VS:
Selected Entries
01/21/25
12:39
Temp 98.2 F
Pulse 62
Resp Rate 16
Blood pressure 128/82
SaO2 99
Oxygen Mode of Delivery Room air
PE
Gen:
HEENT:
Neck:
Lungs:
Cor:
Abdomen:
MACHINE BURRER:
MS:
Psych:
11/01/24 11/01/24 11/22/24
08:50 08:59 09:30
WBC
Hgb
Plt Count 147
INR
Potassium
Carbon Dioxide
BUN
Creatinine
eGFR
Calcium 9.2 9.1
AST
ALT
Alkaline Phosphatase
Troponin I
Albumin
PTH Intact
Hep Bs Antigen
Hepatitis C Antibody
HIV Ag/Ab Combo Qual
11/22/24 01/21/25 01/21/25
09:50 12:58 18:58
WBC 9.0
Hgb 13.2
Plt Count 190
INR 1.10
Potassium 5.0
Carbon Dioxide 31 H
BUN 19
Creatinine 0.9
eGFR > 60.00
Calcium 14.9 H*
AST 143 H
ALT 39
Alkaline Phosphatase 180 H
Troponin I 0.018
Albumin 3.6
PTH Intact Pending
Hep Bs Antigen Negative
Hepatitis C Antibody Negative
HIV Ag/Ab Combo Qual Negative
EKG
AV dual-paced rhythm WITH OCCASIONAL ventricular-paced complexes
Biventricular pacemaker detected
ABNORMAL ECG
WHEN COMPARED WITH ECG OF 06-OCT-2024 10:32,
NO SIGNIFICANT CHANGE WAS FOUND
10/17/23 TTE
Moderately reduced LVEF
LVEF s 40%.
Mild MR
Mild AR
Mild to moderate TR
Estimated PASP [address] W/o Iv Contrast
- New small rounded cortical hyperdensity in the right frontal lobe with mild surrounding edema suggestive of metastatic disease.
- MRI examination recommended for confirmation.
- Nonacute left temporoparietal infarct. New from previous exam.
- Severe bilateral frontal atrophy. Stable
Last hospitalist admission: 02/23/23 -02/27/23
DC DXs:
Probable head of pancreas malignant tumor
metastatic to the liver status post liver biopsy
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
ASSESSMENT & PLAN
Severe presumed symptomatic hypercalcemia due to extensive met Pancreatic CA
- Cautious IV NS due to LVEF 40%
- agree with Zometa
- Oncology consulted
Advanced and extensive metastatic Pancreatic CA to liver with new Brain mets per admission HCT with POOR INSIGHT
HX HX nonobstructive thrombus throughout the superior mesenteric vein and its distal branches. Smaller nonocclusive thrombus in the main portal vein.
- Last chemo was 4-6 weeks ago> As per oncologist( Dr Potts) note as of 12/18/24 - mixed response to chemo since Dxs of Pancreas CA Dx. Opted to stop chemo due to toxicity of chemo out weigh the benefits
- probably Hospice candidate
- Eliquis is no longer listed as OP Meds
- s/p IV Decadron dose at ER - await further Onco evaluation for
- Oncology consult
Prognosis: grim. Hospice care candidate with POOR INSIGHT
- await Onco consult for Hospice care vs palliative care
Chr conditions
HX chr HFrEF - 10/17/23 TTE with LVEF 40%
HX VT
HX NICM
S/p defibrillator implant
HX mild mitral regurgitation/tricuspid regurgitation.
HX primary hypertension
HX cerebral infarction
HX Wernicke's aphasia
HX daily alcohol intake.
DVT Px: LMWH
Code: Full code
IP TLM
[2025-01-21 19:37] LABS: Calcium 14.8 mg/dl (8.4-10.2)
[2025-01-21 21:00] VITALS: BP 145/85; BMI 23.1
[2025-01-21 21:36] VITALS: BMI 23.1
[2025-01-21] MEDS: NSS 1000 IV (21:53)
[2025-01-21] MEDS: TOPROL XL 25 MG PO (21:54)
[2025-01-21] MEDS: AREDIA 280 MG IV (21:54)
--- NOTE | 2025-01-21 22:50 | PTCARENOTE ---
Pt transferred to [facility] at 21:15. pt was able to stand on scale for weight and walked to bed from stretcher with unsteady gait noted. Pt placed on bed alarm for safety precautions. Pt is AAOx3, VSS, pt oriented to room, call palacios within reach and pt
is able to make needs known.
[2025-01-21 23:49] VITALS: BP 111/67
[2025-01-22] VITALS (7 sets, daily range): BP systolic 103–166; BP diastolic 60–74; PULSE 59; O2SAT 97; BMI 23.2
--- NOTE | 2025-01-22 04:32 | PTCARENOTE ---
Pt upon admission to unit was ordered NSS 80ml/hr and NSS 200ml/hr at the same time. Notified ELECTRICAL ELECTRONICS TECHNICIAN via TT for clarification, new orders received to only give 80ml/hr NSS, other order D/Velasquez.
--- NOTE | 2025-01-22 06:27 | CON.ONC ---
Impression
Impression
Hypercalcemia of malignancy
Met pancreatic Ca
Chemotherapy intolerance
Oxaliplatin induced neuropathy
Full code
Plan
Plan
Suspect continued POD.
Recheck CA 19/[address] A/P.
IVF + pamidronate for Tx hypercalcemia of malignancy. Follow Ca. Should start to drop 24-48 hrs
PTHrP. Doubt primary hyperparathyroidism as Ca normal in late October.
Not sure he is eligible for resumption of treatment but will see how things go over weekend and reassess as outpatient.
Patient History
History of Present Illness
CC: weakness and hypercalcemia. Met Pancreatic Ca
HPI: 74-year-old male with pancreatic cancer to liver presents to [facility] ED with weakness, unsteady gait, and blurred vision. He had been on FOLFOX chemotherapy last given 11/23 held for intolerance including peripheral neuropathy.
In ER serum Ca = 14.9 (was 9.1, 11/23). He also has POD based on rising CA 19/9 = 292 (prior 2016). CT 12/16: Multifocal hepatic metastatic lesions are noted; mixed response to therapy suggested, with interval mild decrease in size of dominant left
lobe lesions, though increase in size of right lobe lesions. Patient admitted for hypercalcemia of malignancy given IVF and pamidronate 90 mg IVPB.
Past-Medical/Surgical History
PMH:
pancreatic cancer to liver, HFrEF, hypertension, hyperlipidemia, COPD, gout, left temporal lobe stroke, and paroxysmal atrial fibrillation
PSH:
ICD/pacemaker placement.
SH:
Patient denies ever using tobacco.
Beers 2/day previously although abstinent.
Marital Status: Patient is /.
FH: Father pancreatic cancer, mother uterine cancer.
Patient Medication
�Medication �Instructions �Recorded �Confirmed �Last Taken �Type
rosuvastatin 20 mg tablet 20 mg PO QPM High cholesterol 02/23/23 01/21/25 01/20/25 History
lisinopril 5 mg tablet 5 mg PO DAILY 10/05/24 01/21/25 01/20/25 History
metoprolol succinate 50 mg 25 mg PO BID 10/05/24 01/21/25 01/21/25 History
tablet,extended release 24 hr
albuterol sulfate 90 mcg/actuation 2 puff inhalation R Q4HPRN PRN 01/21/25 01/21/25 Unknown History
aerosol inhaler wheezing
guaifenesin 600 mg tablet, 600 mg PO [id number] PRN cough 01/21/25 01/21/25 01/18/25 History
extended release 12 hr (Mucinex)
magnesium oxide 400 mg PO Q48H 01/21/25 01/21/25 01/20/25 History
therapeutic multivitamin 1 tab PO NOON 01/21/25 01/21/25 01/20/25 History
Active Medications
Generic Name Dose Route Start Last Admin
Trade Name Freq PRN Reason Stop Dose Admin
Acetaminophen 650 mg 01/21/25 21:03
Acetaminophen 325 Mg Tablet PO 02/18/25 21:02
Q4HPRN PRN
mild pain/LUBIN/temp> 100.4F
Albuterol 2 puff 01/21/25 21:03
Albuterol Hfa [90 Mcg/Dose] Inhaler INH
R Q4HPRN PRN
wheezing
Protocol
Enoxaparin Sodium 40 mg 01/22/25 18:00
Enoxaparin Sodium 40 Mg/0.4 Ml Syringe SC 02/19/25 17:59
QPM LEXA
Guaifenesin 600 mg 01/21/25 21:03
Guaifenesin 600 Mg Extended Release Tablet PO 02/18/25 21:02
[id number] PRN
cough
Sodium Chloride 1,000 mls @ 80 mls/hr 01/21/25 21:03 01/21/25 21:53
Nss IV 01/22/25 09:32 1,000 mls
[id number] LEXA Administration
Lisinopril 5 mg 01/22/25 08:00
Lisinopril 5 Mg Tablet PO 02/19/25 07:59
DAILY LEXA
Magnesium Oxide 500 mg 01/22/25 08:00
Magnesium Oxide 500 Mg Tablet PO 02/19/25 07:59
Q48H LEXA
Metoprolol Succinate 25 mg 01/21/25 21:03 01/21/25 21:54
Metoprolol 25 Mg Extended Release Tablet PO 02/18/25 21:02 25 mg
BID LEXA Administration
Multivitamins Therapeutic 1 tablet 01/22/25 12:00
Multivitamin Tablet PO 02/19/25 11:59
NOON LEXA
Rosuvastatin Calcium 20 mg 01/22/25 18:00
Rosuvastatin (Crestor) 20 Mg Tablet PO 02/19/25 17:59
QPM LEXA
Sodium Chloride 0 flush 01/21/25 22:00
Sodium Chloride 0.9% (Flush) Syringe IV 02/18/25 21:59
PER PROTOCOL LEXA
Review of Systems
-
Constitutional: Reports Fatigue; Denies Fever
Respiratory: Reports No Symptoms
Cardiac: Reports No Symptoms
GI: Reports No Symptoms
Neuro: Reports Other (peripheral neuropathy)
Physical Exam
-
General: No Apparent Distress and Comfortable; Negative Respiratory Distress
HEENT: Negative Jaundice
Cardiology: S1 and S2
Pulmonary: Clear
GI: Soft
Musculoskeletal: No Edema
Extremities: No C/C/E
Neurology: Non Focal
Skin: Warm
Hematologic / Lymphatic: No Lymphadenopathy
Psych: Calm
Labs
Lab Results
WBC 9.0 10^3/uL (4.8-10.8) 01/21/25 12:58
RBC 4.03 10^6/uL (4.70-6.10) L 01/21/25 12:58
Hgb 13.2 g/dL (13.0-18.0) 01/21/25 12:58
Hct 38.5 % (39.0-52.0) L 01/21/25 12:58
MCV 95.5 fL (80.0-94.0) H 01/21/25 12:58
MCH 32.8 pg (27.0-31.0) H 01/21/25 12:58
MCHC 34.3 g/dL (33.0-37.0) 01/21/25 12:58
RDW 13.5 % (11.5-14.5) 01/21/25 12:58
Plt Count 10^3/uL (130-400) 01/21/25 12:58
MPV Not Reportable 01/21/25 12:58
Abs Immat Gran (auto) 0.0 10^3/uL (0-0.05) 01/21/25 12:58
Absolute Neuts (auto) 7.1 10^3/uL (1.4-6.5) H 01/21/25 12:58
Absolute Lymphs (auto) 1.0 10^3/uL (1.2-3.4) L 01/21/25 12:58
Absolute Monos (auto) 0.7 10^3/uL (0.1-0.6) H 01/21/25 12:58
Absolute Eos (auto) 0.1 10^3/uL (0-0.7) 01/21/25 12:58
Absolute Basos (auto) 0.0 10^3/uL (0-0.2) 01/21/25 12:58
Immature Gran % 0.3 % (0-0.5) 01/21/25 12:58
Neutrophils % 79.3 % (42.2-75.2) H 01/21/25 12:58
Lymphocytes % 11.5 % (20.5-51.1) L 01/21/25 12:58
Monocytes % 7.9 % (1.7-9.3) 01/21/25 12:58
Eosinophils % 0.8 % (0-6) 01/21/25 12:58
Basophils % 0.2 % (0-2) 01/21/25 12:58
Creatinine 0.9 mg/dL (0.7-1.3) 01/21/25 12:58
Vital Signs
Vital Signs
Temp Pulse Resp BP Pulse Ox
97.2 F 61 14 103/67 93
01/22/25 03:26 01/22/25 03:26 01/22/25 03:26 01/22/25 03:26 01/22/25 03:26
[2025-01-22 07:18] LABS: Carbon Dioxide 32 mmol/L (22-30); Potassium 5.7 mmol/L (3.5-5.1)
[2025-01-22 07:31] LABS: Blood Urea Nitrogen 23 mg/dl (9-20); Calcium 14.4 mg/dl (8.4-10.2); Chloride 101 mmol/L (98-107); Estimated Creatinine Clearance 73 ml/min; Glucose 158 mg/dl (70-99); Sodium 137 mmol/L (135-145); eGFR > 60.00
[2025-01-22] MEDS: TOPROL XL 25 MG PO ×2 (09:07→20:12)
[2025-01-22] MEDS: MAGNESIUM OXIDE 500 MG PO (09:07)
[2025-01-22 09:30] LABS: Intact PTH 8.7 pg/ml (13.6-85.8)
--- NOTE | 2025-01-22 09:30 | W.CON.NEPH ---
Consultation
-
Date/Time Consultation Requested: 01/22/2025 8:30 AM
Date/Time Consultation Performed: 01/22/2025 930
Requesting Provider: Dr. Whitehead
Performing Provider: Dr. Silva
Reason for Consultation: Hypercalcemia/hyperkalemia
Medical History
-
Chief Complaint: Hypercalcemia/hyperkalemia
History of Present Illness:
Patient is a 74-year-old male with past medical history significant for pancreatic cancer with metastasis to liver(currently maintained on chemotherapy), HFrEF (off diuretic therapy), hypertension (maintained on lisinopril and metoprolol),
hyperlipidemia and paroxysmal atrial fibrillation who presented to [facility] ED for evaluation of generalized weakness and blurry vision. Patient reports that last week he had flu like symptoms and has not recovered and is now having
unsteady gait, denies any falls, blurry vision. He reports having subjective fevers of feeling hot, chills with rigors and decreased appetite. These have all resolved and he continues with generalized weakness, decreased appetite and blurry vision.
He denies any cough, shortness of breath, chest pain, vomiting, constipation, diarrhea or urinary symptoms. Patient receiving treatment for pancreatic cancer with [facility], last chemo was 4-6 weeks ago. Nephrology was consulted for
hypercalcemia with serum calcium level of 14.9 and associated hyperkalemia with potassium of 5.7.
Past Medical History
Ventricular tachycardia, status post Medtronic biventricular ICD 01/2017.
Congestive heart failure, reduced ejection fraction.
Hypertension.
Hyperlipidemia.
Dilated cardiomyopathy.
Left bundle branch block.
Paroxysmal atrial fibrillation, pharmacological therapy with Metoprolol Succinate and no current oral anticoagulation.
Mild mitral regurgitation.
Mild aortic regurgitation.
Mild-moderate tricuspid regurgitation.
Right to left shunt with small PFO noted on LYNN 2017.
COPD with asthmatic component.
Obstructive sleep apnea, noncompliant with device.
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
Pancreatic cancer with metastasis to liver, currently undergoing chemotherapy.
Chemo-induced neuropathy.
Pancytopenia.
Gout.
History of C Diff 2017.
Pre-operative leukocytosis in the setting of recent Nyvepria injection, asymptomatic.
History of alcohol abuse.
Past Surgical History: Reports Other
Additional Past Surgical History:
Medtronic biventricular ICD implantation.
Social History
Tobacco: Non-Smoker
Alcohol: Former
Family History
no ckd
Allergies / Home Medications
Allergy/AdvReac Type Severity Reaction Status Date / Time
No Known Allergies Allergy Verified 01/21/25 12:38
�Medication �Instructions �Recorded �Confirmed �Type
rosuvastatin 20 mg tablet 20 mg PO QPM High cholesterol 02/23/23 01/21/25 History
lisinopril 5 mg tablet 5 mg PO DAILY 10/05/24 01/21/25 History
metoprolol succinate 50 mg 25 mg PO BID 10/05/24 01/21/25 History
tablet,extended release 24 hr
albuterol sulfate 90 mcg/actuation 2 puff inhalation R Q4HPRN PRN 01/21/25 01/21/25 History
aerosol inhaler wheezing
guaifenesin 600 mg tablet, 600 mg PO [id number] PRN cough 01/21/25 01/21/25 History
extended release 12 hr (Mucinex)
magnesium oxide 400 mg PO Q48H 01/21/25 01/21/25 History
therapeutic multivitamin 1 tab PO NOON 01/21/25 01/21/25 History
Review of Systems
-
History Source: Patient
All other systems: Negative unless noted
Constitutional: Other (Weakness fever and chills)
EENT: Other (Blurry vision)
Abdomen/GI: Nausea and Anorexia
Neurological: Other (Peripheral neuropathy)
Physical Exam
Vital Signs
Vital Signs
Temp Pulse Resp BP Pulse Ox
97.9 F 62 18 166/66 92
01/22/25 07:00 01/22/25 07:00 01/22/25 07:00 01/22/25 07:00 01/22/25 07:00
Lab Results
01/21/25 12:58
01/22/25 06:40
WBC 9.0 10^3/uL (4.8-10.8) 01/21/25 12:58
RBC 4.03 10^6/uL (4.70-6.10) L 01/21/25 12:58
Hgb 13.2 g/dL (13.0-18.0) 01/21/25 12:58
Hct 38.5 % (39.0-52.0) L 01/21/25 12:58
Plt Count 10^3/uL (130-400) 01/21/25 12:58
Sodium 137 mmol/L (135-145) 01/22/25 06:40
Potassium 5.7 mmol/L (3.5-5.1) H 01/22/25 06:40
Chloride 101 mmol/L (98-107) 01/22/25 06:40
Carbon Dioxide 32 mmol/L (22-30) H 01/22/25 06:40
BUN 23 mg/dl (9-20) H 01/22/25 06:40
Creatinine 0.9 mg/dL (0.7-1.3) 01/22/25 06:40
eGFR > 60.00 01/22/25 06:40
Glucose 158 mg/dl (70-99) H 01/22/25 06:40
Calcium 14.4 mg/dl (8.4-10.2) H* 01/22/25 06:40
Albumin 3.6 g/dl (3.5-5.0) 01/21/25 12:58
Physical Exam
General: AOx3, Nontoxic , NAD
HEENT: PERRL, EOMI, Anicteric, Conjunctivae Clear, Ear/Nose Intact, Hearing Normal, Oropharynx Clear/Moist, Dentition Intact, Facial Symmetry, Neck Supple, Neck: Trachea Midline, No JVD and No Thyromegaly, no Bruits
Respiratory: Clear to auscultation bilaterally with normal lung exersion
Cardiac: S1/S2 and Regular Rate/Rhythm
Breast: Deferred by me
Abdomen: Soft, Nontender, distended, Normal Bowel Sounds and No Hepatosplenomegaly
Rectal: Deferred by Provider
Genito-urinary: No Costovertebral Tenderness
Extremities: No Clubbing, No Cyanosis and No Edema
Skin: No Rash or open lesions
Neuro: Nonfocal/Grossly Intact, CN II-XII (Intact) and Strength (Musculoskeletal exam 5 out of 5 both upper and lower extremities)
Hematologic/Lymphatic: No Cervical Lymphadenopathy, No Submandibular Lymphadenopathy and No Supraclavicular Lymphadenopathy
Psych: Mood/afflect pleasant, Insight/judgement good and Appropriate
Vascular: plus 2 pedal and radial pulses
Data Reviewed
-
Radiology: Report Reviewed by me (Head CT report reviewed: New small rounded cortical hyperdensity in right frontal lobe with mild surrounding edema suggestive of metastatic disease)
Labs: Labs Reviewed by me (BMP CBC)
Old Records: Reviewed (Reviewed old records from 11/22/2024 serum calcium 9.1)
Assessment/Plan
-
Impression:
Presentation with blurry vision generalized weakness and anorexia
Hypercalcemia
Hyperkalemia
Metastatic pancreatic cancer
Oxaliplatin induced neuropathy
History of congestive heart failure with preserved EF
History of ventricular tachycardia with indwelling ICD
History of hypertension
History of COPD/asthma
History of gout
History of prior left temporal lobe CVA
Paroxysmal atrial fibrillation
Plan:
Hypercalcemia:
-Likely precipitate by metastatic pancreatic cancer
-IV pamidronate provided continue IV fluids and close monitoring of urine output given history of congestive heart failure
-No evidence of congestive heart failure or volume overload at this time
-Intact PTH appropriately suppressed at 8
-PTH RP pending
-If hypercalcemia does not improve I can also provide calcitonin
Hyperkalemia
-Was likely precipitated due to hypotension in setting of KORTNEY inhibitor
-Lokelma was provided
-Withholding KORTNEY inhibitor
HTN:
-Maintain metoprolol
-If blood pressure spikes while off KORTNEY inhibitor we can provide Procardia
[2025-01-22] MEDS: THERAGRAN 1 TABLET PO (11:26)
[2025-01-22] MEDS: LOKELMA 10 GRAM PO ×3 (11:26→17:21)
--- NOTE | 2025-01-22 12:48 | W.PN.HOSP.TC ---
Today's Communication/Plan
-
Monitor vital signs see plan
Status post pamidronate
Potassium high, Lokelma given
Continue with fluids
PTH RP pending
PT
Brain MRI pending
Assessment / Plan
Assessment / Plan
General: Well Developed, No Apparent Distress, Comfortable and Conversant
HEENT: NormoCephalic, Moist mucous membranes, Atraumatic, [place] Conjunctivae
Respiratory: Clear and Non Labored Respirations
Cardiac: S1/S2 and Regular Rhythm
GI: Soft, Non Tender, Non Distended and Normal Bowel Sounds
Musculoskeletal: No Edema
Neuro: Awake, Alert, AO x 3 and Nonfocal/grossly intact
Psych: Calm and Intact Judgment/Insight
blurry vision, generalized weakness, decreased appetite, unsteady gait
Suspect above symptoms secondary to hypercalcemia likely secondary to malignancy
Status post pamidronate, IVF. Nephrology following
Monitor calcium
Oncology following
PTHrp pending
Head CT: New small rounded cortical hyperdensity in the right frontal lobe with mild surrounding edema suggestive of metastatic disease. MRI examination recommended for confirmation.
Nonacute left temporoparietal infarct. New from previous exam.
Severe bilateral frontal atrophy. Stable
- if PTH is above 20, it may be beneficial to start Sensipar per endocrinology, PTH 8.7
- IVF NSS
- monitor BMP
pancreatic cancer with metastasis to liver
treated at [facility], last chemo 4-6 weeks ago
Now appears as has mets to the brain as well
Head CT: New small rounded cortical hyperdensity in the right frontal lobe with mild surrounding edema suggestive of metastatic disease. MRI examination recommended for confirmation.
Nonacute left temporoparietal infarct. New from previous exam.
Severe bilateral frontal atrophy. Stable
Most recent plan from Oncology dated 12/18/[address] Potts: Patient has been on chemotherapy since diagnosis, now with unacceptable cumulative toxicity.
Discontinue chemotherapy now.
Oncology following
Brain MRI
Chemotherapy intolerance, oxaliplatin induced neuropathy
Hyper kalemia
Lokelma
Hold lisinopril
#essential hypertension
- Hold lisinopril
Continue metoprolol
hyperlipidemia
- continue rosuvastatin
paroxysmal atrial fibrillation
EKG: AV dual-paced rhythm WITH OCCASIONAL ventricular-paced complexes
Biventricular pacemaker detected
- continue metoprolol
asthma
- continue albuterol HFA
- continue guaifenesin PRN
HFrEF
ECHO (10/17/23): Moderately reduced left ventricular systolic function. Estimated left ventricular ejection fraction is 40%.
Mild mitral regurgitation.
Mild aortic regurgitation.
Mild to moderate tricuspid regurgitation. Estimated pulmonary artery pressure of 52 mmHg.
- daily weights
Monitor volume status
Code status: full code
DVT prophylaxis: Lovenox Sq
I spent a total of 52 minutes with the patient or on the floor. More than 50% of this time involved counseling and coordination of care.
Anticipated Discharge: > 48 hours
Subjective/Interval History
-
Date of Service: January 22, 2025
Denies nausea
Objective Data
-
Labs:
Laboratory Results
01/22/25
06:40
Sodium 137
Potassium 5.7 H
Chloride 101
Carbon Dioxide 32 H
BUN 23 H
Creatinine 0.9
Glucose 158 H
Calcium 14.4 H*
Vital Signs:
Vital Signs
Temp Pulse Resp BP Pulse Ox
98.1 F 61 16 118/70 95
01/22/25 11:00 01/22/25 11:00 01/22/25 11:00 01/22/25 11:00 01/22/25 11:00
I&O
01/21/25 01/22/25 01/23/25
06:59 06:59 06:59
Intake Total 1480 / 1480
Output Total 500 / 500
Balance 980 / 980
--- NOTE | 2025-01-22 12:50 | CM ---
financial analysis manager reviewed patient's chart and met with patient and daughter Aleyda at bedside, patient lives alone in a one story home with 4 steps to enter, patient is independent with adl's and ambulation, no dme, home when stable no needs.
PCP: Verenice Azevedo
Pharmacy [facility] in [place]
Plan; Home no needs when stable.
[2025-01-22] MEDS: NSS 1000 IV (13:31)
[2025-01-22] MEDS: LOVENOX 40 MG SC (17:21)
[2025-01-22] MEDS: CRESTOR 20 MG PO (17:21)
[2025-01-23 03:39] VITALS: BP 108/64
[2025-01-23] MEDS: NSS 1000 IV ×2 (03:49→22:14)
[2025-01-23 06:00] VITALS: BMI 24.1
[2025-01-23 07:00] VITALS: BP 103/63
[2025-01-23 07:49] LABS: % Basophils 0.2 % (0-2); % Eosinophils 0.2 % (0-6); % Immature Granulocytes 0.4 % (0-0.5); % Lymphocytes 8.3 % (20.5-51.1); % Monocytes 7.1 % (1.7-9.3); % Neutrophils 83.8 % (42.2-75.2); Absolute Immature Granulocytes 0.1 10^3/uL (0-0.05); Absolute Monocytes 0.9 10^3/uL (0.1-0.6); Absolute Neutrophils 10.2 10^3/uL (1.4-6.5); Hematocrit 34.1 % (39.0-52.0); Hemoglobin 11.8 g/dL (13.0-18.0); Mean Corp Hgb Conc. 34.6 g/dL (33.0-37.0); Mean Corpuscular Hgb 33.3 pg (27.0-31.0); Mean Corpuscular Volume 96.3 fL (80.0-94.0); Mean Platelet Volume 10.6 fL (7.4-10.4); Nucleated Red Blood Cells % 0 % (-); Platelet Count 204 10^3/uL (130-400); Red Blood Cell Count 3.54 10^6/uL (4.70-6.10); Red Cell Dist. Width 13.8 % (11.5-14.5); White Blood Cell Count 12.2 10^3/uL (4.8-10.8)
[2025-01-23 08:12] LABS: ALT (SGPT) 39 U/L (0-50); AST (SGOT) 161 U/L (17-59); Albumin 2.9 g/dl (3.5-5.0); Alkaline Phosphatase 157 U/L (38-126); Blood Urea Nitrogen 27 mg/dl (9-20); Carbon Dioxide 31 mmol/L (22-30); Chloride 102 mmol/L (98-107); Estimated Creatinine Clearance 73 ml/min; Glucose 76 mg/dl (70-99); Potassium 4.7 mmol/L (3.5-5.1); Sodium 136 mmol/L (135-145); Total Bilirubin 0.8 mg/dl (0.2-1.3); Total Protein 5.2 g/dl (6.3-8.2); eGFR > 60.00
[2025-01-23] MEDS: OMNIPAQUE 50 ML PO (09:05)
[2025-01-23] MEDS: TOPROL XL 25 MG PO ×2 (09:06→20:24)
[2025-01-23 09:17] VITALS: BMI 23.6
--- NOTE | 2025-01-23 10:47 | W.PN.NEPH.PH ---
Today's Communication / Plan
-
Can maintain IV fluids another day at 70 cc/h
Calcium level to be followed
Assessment/Plan
-
Impression:
Presentation with blurry vision generalized weakness and anorexia
Hypercalcemia
Hyperkalemia
Metastatic pancreatic cancer
Oxaliplatin induced neuropathy
History of congestive heart failure with preserved EF
History of ventricular tachycardia with indwelling ICD
History of hypertension
History of COPD/asthma
History of gout
History of prior left temporal lobe CVA
Paroxysmal atrial fibrillation
Plan:
Hypercalcemia:
-Calcium now down from 14.9-12
-Likely precipitated by metastatic pancreatic cancer
-IV pamidronate had been provided continue IV fluids and close monitoring of urine output given history of congestive heart failure
-No evidence of congestive heart failure or volume overload at this time, weight stable can continue IV fluids for now
-Intact PTH appropriately suppressed at 8
-PTH RP pending
Hyperkalemia
-Was likely precipitated due to hypotension in setting of KROTNEY inhibitor
-Lokelma was provided
-Withholding KORTNEY inhibitor
-K now stable
HTN:
-Maintain metoprolol
-If blood pressure spikes while off KORTNEY inhibitor we can provide Procardia
-Patient currently hypotensive
-
-
Date of Service: January 23, 2025
CC / HPI / ROS
-
Chief Complaint:
Hypercalcemia
History of Present Illness:
Calcium down to 12 following administration of pamidronate and IV fluids
Hemodynamically labile
Hyperkalemia improved
Review of Systems:
Nonoliguric
No reported chest pain or shortness of breath
Weights down
Labs
-
Labs:
WBC 12.2 10^3/uL (4.8-10.8) H 01/23/25 06:00
RBC 3.54 10^6/uL (4.70-6.10) L 01/23/25 06:00
Hgb 11.8 g/dL (13.0-18.0) L 01/23/25 06:00
Hct 34.1 % (39.0-52.0) L 01/23/25 06:00
Plt Count 204 10^3/uL (130-400) 01/23/25 06:00
Sodium 136 mmol/L (135-145) 01/23/25 06:00
Potassium 4.7 mmol/L (3.5-5.1) 01/23/25 06:00
Chloride 102 mmol/L (98-107) 01/23/25 06:00
Carbon Dioxide 31 mmol/L (22-30) H 01/23/25 06:00
BUN 27 mg/dl (9-20) H 01/23/25 06:00
Creatinine 0.9 mg/dL (0.7-1.3) 01/23/25 06:00
eGFR > 60.00 01/23/25 06:00
Glucose 76 mg/dl (70-99) 01/23/25 06:00
Calcium 12.0 mg/dl (8.4-10.2) H D 01/23/25 06:00
Albumin 2.9 g/dl (3.5-5.0) L 01/23/25 06:00
Physical Exam
-
Vital Signs:
Vital Signs
Temp Pulse Resp BP Pulse Ox
97.9 F 62 18 103/63 95
01/23/25 07:00 01/23/25 07:00 01/23/25 07:00 01/23/25 07:00 01/23/25 07:00
Cardiovascular:: Regular rate and rhythm
Respiratory:: Bilateral: CTA
Lung Excursion:: Normal
Abdomen:: Distended, Nontender and Soft
Bowel Sounds:: Decreased
Extremity Edema:: None: Bilateral:
Mazariegos Catheter: No
--- NOTE | 2025-01-23 11:18 | W.PN.HOSP.TC ---
Today's Communication/Plan
-
Monitor vital signs see plan
Continue with IV fluids
Monitor calcium
MRI brain, CT abdomen/pelvis
PT
Assessment / Plan
Assessment / Plan
General: Well Developed, No Apparent Distress, Comfortable and Conversant
HEENT: NormoCephalic, Moist mucous membranes, Atraumatic, [place] Conjunctivae
Respiratory: Clear and Non Labored Respirations
Cardiac: S1/S2 and Regular Rhythm
GI: Soft, Non Tender, Non Distended and Normal Bowel Sounds
Musculoskeletal: No Edema
Neuro: Awake, Alert, AO x 3 and Nonfocal/grossly intact
Psych: Calm and Intact Judgment/Insight
blurry vision, generalized weakness, decreased appetite, unsteady gait
Suspect above symptoms secondary to hypercalcemia likely secondary to malignancy
Status post pamidronate, IVF. Nephrology following. Discussed with nephrology, another day of IV fluids
Monitor calcium
Oncology following
PTHrp pending
Head CT: New small rounded cortical hyperdensity in the right frontal lobe with mild surrounding edema suggestive of metastatic disease. MRI examination recommended for confirmation.
Nonacute left temporoparietal infarct. New from previous exam.
Severe bilateral frontal atrophy. Stable
- if PTH is above 20, it may be beneficial to start Sensipar per endocrinology, PTH 8.7
- IVF NSS
- monitor BMP
pancreatic cancer with metastasis to liver
treated at [facility], last chemo 4-6 weeks ago
Now appears as has mets to the brain as well
Head CT: New small rounded cortical hyperdensity in the right frontal lobe with mild surrounding edema suggestive of metastatic disease. MRI examination recommended for confirmation.
Nonacute left temporoparietal infarct. New from previous exam.
Severe bilateral frontal atrophy. Stable
Most recent plan from Oncology dated 12/18/[address] Potts: Patient has been on chemotherapy since diagnosis, now with unacceptable cumulative toxicity.
Discontinue chemotherapy now.
Oncology following
Brain MRI pending
Chemotherapy intolerance, oxaliplatin induced neuropathy
CT abdomen/pelvis per oncology
Hyper kalemia
s/p Lokelma
Hold lisinopril
monitor
#essential hypertension
- Hold lisinopril
Continue metoprolol
hyperlipidemia
- continue rosuvastatin
paroxysmal atrial fibrillation
EKG: AV dual-paced rhythm WITH OCCASIONAL ventricular-paced complexes
Biventricular pacemaker detected
- continue metoprolol
asthma
- continue albuterol HFA
- continue guaifenesin PRN
HFrEF
ECHO (10/17/23): Moderately reduced left ventricular systolic function. Estimated left ventricular ejection fraction is 40%.
Mild mitral regurgitation.
Mild aortic regurgitation.
Mild to moderate tricuspid regurgitation. Estimated pulmonary artery pressure of 52 mmHg.
- daily weights
Monitor volume status
Code status: full code
DVT prophylaxis: Lovenox Sq
I spent a total of 51 minutes with the patient or on the floor. More than 50% of this time involved counseling and coordination of care.
Anticipated Discharge: 24 - 48 hours
Subjective/Interval History
-
Date of Service: January 23, 2025
Denies pain
Objective Data
-
Labs:
Laboratory Results
01/23/25
06:00
WBC 12.2 H
Hgb 11.8 L
Hct 34.1 L
Plt Count 204
Sodium 136
Potassium 4.7
Chloride 102
Carbon Dioxide 31 H
BUN 27 H
Creatinine 0.9
Glucose 76
Calcium 12.0 H D
Total Bilirubin 0.8
AST 161 H
ALT 39
Alkaline Phosphatase 157 H
Vital Signs:
Vital Signs
Temp Pulse Resp BP Pulse Ox
97.9 F 62 18 103/63 95
01/23/25 07:00 01/23/25 07:00 01/23/25 07:00 01/23/25 07:00 01/23/25 07:00
I&O
01/22/25 01/23/25 01/24/25
06:59 06:59 06:59
Intake Total 1480 / 1480 1080 / 1080
Output Total 500 / 500 1000 / 1000
Balance 980 / 980 80 / 80
[2025-01-23] MEDS: THERAGRAN 1 TABLET PO (11:29)
[2025-01-23 12:15] VITALS: BP 108/65
[2025-01-23 15:00] VITALS: BP 107/63
[2025-01-23] MEDS: CRESTOR 20 MG PO (18:27)
[2025-01-23] MEDS: LOVENOX 40 MG SC (18:27)
[2025-01-23 19:46] VITALS: BP 108/52
[2025-01-23 21:06] LABS: CA 19-9 9808 U/mL (<=35)
[2025-01-23 23:18] VITALS: BP 113/60
[2025-01-24] VITALS (8 sets, daily range): BP systolic 95–147; BP diastolic 47–78; BMI 24.3
[2025-01-24] MEDS: TYLENOL 650 MG PO ×3 (01:14→21:06)
[2025-01-24] MEDS: LOVENOX 75 MG SC ×2 (08:21→21:07)
[2025-01-24] MEDS: MAGNESIUM OXIDE 500 MG PO (08:22)
[2025-01-24] MEDS: TOPROL XL 25 MG PO ×2 (08:22→21:08)
[2025-01-24 08:31] LABS: % Basophils 0.2 % (0-2); % Eosinophils 0.4 % (0-6); % Immature Granulocytes 0.6 % (0-0.5); % Lymphocytes 5.2 % (20.5-51.1); % Monocytes 8.8 % (1.7-9.3); % Neutrophils 84.8 % (42.2-75.2); Absolute Immature Granulocytes 0.1 10^3/uL (0-0.05); Absolute Lymphocytes 0.6 10^3/uL (1.2-3.4); Absolute Neutrophils 9.4 10^3/uL (1.4-6.5); Hematocrit 32.9 % (39.0-52.0); Hemoglobin 11.5 g/dL (13.0-18.0); Mean Corpuscular Hgb 33.1 pg (27.0-31.0); Mean Corpuscular Volume 94.8 fL (80.0-94.0); Mean Platelet Volume 10.1 fL (7.4-10.4); Nucleated Red Blood Cells % 0 % (-); Platelet Count 151 10^3/uL (130-400); Red Blood Cell Count 3.47 10^6/uL (4.70-6.10); White Blood Cell Count 11.1 10^3/uL (4.8-10.8)
[2025-01-24] MEDS: MUCINEX 600 MG PO (08:31)
[2025-01-24 08:50] LABS: COVID-19 Antigen Negative (Negative)
[2025-01-24 08:52] LABS: ALT (SGPT) 54 U/L (0-50); AST (SGOT) 291 U/L (17-59); Albumin 2.9 g/dl (3.5-5.0); Alkaline Phosphatase 200 U/L (38-126); Blood Urea Nitrogen 21 mg/dl (9-20); Calcium 10.8 mg/dl (8.4-10.2); Carbon Dioxide 27 mmol/L (22-30); Chloride 101 mmol/L (98-107); Estimated Creatinine Clearance 73 ml/min; Glucose 84 mg/dl (70-99); Potassium 4.4 mmol/L (3.5-5.1); Sodium 134 mmol/L (135-145); Total Bilirubin 1.3 mg/dl (0.2-1.3); Total Protein 5.3 g/dl (6.3-8.2); eGFR > 60.00
[2025-01-24] MEDS: THERAGRAN 1 TABLET PO (12:01)
[2025-01-24 12:37] LABS: Urine Albumin 2+ (Neg - Trace); Urine Bilirubin Negative (Negative); Urine Character Clear (Clear); Urine Color Yellow; Urine Glucose Negative (Negative); Urine Ketone 1+ (Negative); Urine Leukocyte Negative (Negative); Urine Nitrite Negative (Negative); Urine Occult Blood Negative (Negative); Urine Specific Gravity 1.005 (<1.030); Urine Urobilinogen 2+ (Neg - 1+)
[2025-01-24] MEDS: NSS 1000 IV (13:02)
[2025-01-24 13:19] LABS: Urine Bacteria Few (Negative); Urine Mucus Few; Urine Red Blood Cell 0-2 /HPF (0-2); Urine Squamous Cell 0-2 /LPF (Few); Urine White Cell 0-2 /HPF (0-5)
--- NOTE | 2025-01-24 13:37 | W.PN.HOSP.TC ---
Today's Communication/Plan
-
paracentesis
follow labs
Assessment / Plan
Assessment / Plan
74yo M with PMHX of pancreatc CA with liver metastasis, HTN, HLD, asthma, HFmrEF came with weakness, decreased appetite and unsteady gait, found hypercalcemia, that started to improve on biphosphates and hydration. Developed fever without source of
infection
A/P:
#Hypercalcemia
#Hyperkalemia
most likely 2/2 CA
Nephrology follows
Improving after pamidronate
PTHrP pending
#New small rounded cortical hyperdensity in the right frontal lobe with mild surrounding edema suggestive of metastatic disease
MRI brain
Hold off Steroids until active infection excluded - patient is neurologically intact
#Fever
can be 2/2 PVT, Cancer, infection
Bcx pending
Moderate amount of free fluid within the pelvis - diagnostic paracentesis
With elevated LFT - schedule HIDA, start Zosyn meanwhile after paracentesis
Chest XR without acute pneumonia
UA not concerning for infection
Patient has no significant complains
COVID-19 and Influenza PCR neg
Elevated procalcitonin with metastatic CA- not informative
#PVT
Lovenox BID 1mg/kg
Onc to follow
#Transaminitis
#elevated alk.phos
no RUQ pain
CT with No evidence for calcified gallstones. No evidence for biliary ductal dilation
HIDA
#Pulmonary nodules
2/2 metastatic disease
increased compared with prior
#Essential HTN
hold lisinopril
#Paroxysmal Afib s/p PPM
telemetry
BB
#Chronic HFmrEF
#Asthma not in exacerbation
cont home meds
DVt ppx on Lovenox therapeutic
Full code
I have spent at least 58min reviewing chart, test results, communication with consultants and family and providing direct patient care
Anticipated Discharge: > 48 hours
Subjective/Interval History
-
Date of Service: January 24, 2025
Objective Data
-
Labs:
Laboratory Results
01/24/25
07:57
WBC 11.1 H
Hgb 11.5 L
Hct 32.9 L
Plt Count 151 D
Sodium 134 L
Potassium 4.4
Chloride 101
Carbon Dioxide 27
BUN 21 H
Creatinine 0.9
Glucose 84
Calcium 10.8 H
Total Bilirubin 1.3
AST 291 H
ALT 54 H
Alkaline Phosphatase 200 H
Vital Signs:
Vital Signs
Temp Pulse Resp BP Pulse Ox
98.1 F 63 18 119/64 94
01/24/25 11:00 01/24/25 11:00 01/24/25 11:00 01/24/25 11:00 01/24/25 11:00
I&O
01/23/25 01/24/25 01/25/25
06:59 06:59 06:59
Intake Total 1080 / 1080 1360 / 1360
Output Total 1000 / 1000 750 / 750
Balance 80 / 80 610 / 610
Review of Systems
-
History Source: Patient
All other systems: Reviewed and negative
Physical Exam
-
General: No Apparent Distress
HEENT: Normocephalic
Respiratory: Clear to Auscultation
Cardiac: Regular Rhythm
GI: Soft, Nontender and Nondistended
Musculoskeletal: No Clubbing, No Cyanosis and No Edema
Neuro: Awake, Alert, Oriented and AO x 3
Psych: Calm
--- NOTE | 2025-01-24 14:10 | PHA.VAN.IN ---
Assessment
- Assessment
Renal Function: Appears similar to baseline
Maximum Temperature: 102.2
Minimum Temperature: 97.9
AUC Dosing Plan
- Dosing Variables
Dosing Weight (kg): 74.6
Dosing CrCl (ml/min): 73
Vd coefficient (L/kg): 0.7
- Empiric Dosing
Initial / Loading Dose: vancomycin 1750 mg x 1
Maintenance Regimen: vancomycin 750 mg q12H
Estimated AUC (mcg*h/mL): 454
Estimated Peak (mcg*h/mL): 26.4
Estimated Trough (mcg/ml): 12.9
Estimated Half Life (H): 10.7
- Monitoring
No levels ordered at this time: consider levels in next few days
Pharmacokinetics Vancomycin I
- -
Patient Age: 74
Patient Sex: Male
Vancomycin Day #: 1
Height / Weight:
Height 5 ft 9 in
Actual Weight 74.588 kg
Pertinent Past Medical History: pancreatic CA with liver metastasis
- Vital Signs / Lab Results
Temp Pulse Resp BP Pulse Ox
98.1 F 63 18 119/64 94
01/24/25 11:00 01/24/25 11:00 01/24/25 11:00 01/24/25 11:00 01/24/25 11:00
Lab Results - Hematology
01/23/25 01/24/25
06:00 07:57
WBC 12.2 H 11.1 H
Lab Results - Chemistry
01/22/25 01/23/25 01/24/25
06:40 06:00 07:57
BUN 23 H 27 H 21 H
Creatinine 0.9 0.9 0.9
Estimated Creat Clear 73 73 73
Albumin 2.9 L 2.9 L
Lab Results - Urine
01/24/25
12:06
Urine Nitrite (Reflex) Negative
Leukocyte Esterase Rfl Negative
Urine WBC (Reflex) 0-2
Ur Squamous Epith Cells 0-2
Urine Bacteria (Reflex) Few A
Microbiology Results
01/24/25 08:17 Influenza Types A & B (SHREYAS) - Final
Nasal Swab Negative for Influenza A & B, NAAT
Negative results must be combined with clinical observations
and patient history.
Nucleic Acid Amplification test (NAAT)performed on the
[employer] platform.
--- NOTE | 2025-01-24 14:33 | CM ---
Chart reviewed for d/c planning. Care ongoing at this time.
Patient declined SNF per chart.
Plan: Home; no needs
[2025-01-24] MEDS: VANCOCIN 535 MG IV (16:00)
--- NOTE | 2025-01-24 16:08 | W.PN.NEPH.PH ---
Today's Communication / Plan
-
d/c IVF
Assessment/Plan
-
Impression:
Presentation with blurry vision generalized weakness and anorexia
Hypercalcemia
Hyperkalemia
Metastatic pancreatic cancer
Oxaliplatin induced neuropathy
History of congestive heart failure with preserved EF
History of ventricular tachycardia with indwelling ICD
History of hypertension
History of COPD/asthma
History of gout
History of prior left temporal lobe CVA
Paroxysmal atrial fibrillation
Plan:
Hypercalcemia:
raghu better with IVF and pamidronate on 01/21
corrected raghu today 11.6
given wt gain and mild JVD will stop IVF
would favor lasix if needed
Hypercalcemia-Likely precipitated by metastatic pancreatic cancer, MRI brain with lesions
Intact PTH appropriately suppressed at 8
-PTH RP pending
mild hyponatremia likely dilutional
potassium normal range, holding ACEI
BP are stable on BB
on abx for fever, plan for paracentesis
follow LFTs increasing trend
d/w nursing
-
-
Date of Service: January 24, 2025
CC / HPI / ROS
-
Chief Complaint:
Hypercalcemia
History of Present Illness:
Calcium down to 11.6 corrected following administration of pamidronate and IV fluids
Hemodynamically labile
Hyperkalemia improved
febrile 102.2 this am
Review of Systems:
Nonoliguric
No reported chest pain or shortness of breath
Weights up
Labs
-
Labs:
WBC 11.1 10^3/uL (4.8-10.8) H 01/24/25 07:57
RBC 3.47 10^6/uL (4.70-6.10) L 01/24/25 07:57
Hgb 11.5 g/dL (13.0-18.0) L 01/24/25 07:57
Hct 32.9 % (39.0-52.0) L 01/24/25 07:57
Plt Count 151 10^3/uL (130-400) D 01/24/25 07:57
Sodium 134 mmol/L (135-145) L 01/24/25 07:57
Potassium 4.4 mmol/L (3.5-5.1) 01/24/25 07:57
Chloride 101 mmol/L (98-107) 01/24/25 07:57
Carbon Dioxide 27 mmol/L (22-30) 01/24/25 07:57
BUN 21 mg/dl (9-20) H 01/24/25 07:57
Creatinine 0.9 mg/dL (0.7-1.3) 01/24/25 07:57
eGFR > 60.00 01/24/25 07:57
Glucose 84 mg/dl (70-99) 01/24/25 07:57
Calcium 10.8 mg/dl (8.4-10.2) H 01/24/25 07:57
Albumin 2.9 g/dl (3.5-5.0) L 01/24/25 07:57
Physical Exam
-
Vital Signs:
Vital Signs
Temp Pulse Resp BP Pulse Ox
100.1 F 86 24 147/74 95
01/24/25 15:50 01/24/25 15:50 01/24/25 15:50 01/24/25 15:50 01/24/25 15:50
Cardiovascular:: Regular rate and rhythm
Respiratory:: Bilateral: CTA
Lung Excursion:: Normal
Abdomen:: Distended, Nontender and Soft
Bowel Sounds:: Decreased
Extremity Edema:: None: Bilateral:
Mazariegos Catheter: No
Other Findings::
mild JVD
[2025-01-24] MEDS: CRESTOR 20 MG PO (18:26)
--- NOTE | 2025-01-24 19:00 | PTCARENOTE ---
Upon completion of Vancomycin dose. Redness and slight edema noted above IV access site. Patient denies any pain/discomfort. Red rash noted to arms, legs, groin and lowers back--flat in some areas, blistered in others. Patient denies any itch or
SOB. IV nurse on unit to access IV access site for s/s of infiltration. House MANAGER [employer]LO[employer] COMMUNICATIONS on floor to assess patient for perceived allergic reaction. Daughter at bedside. Patient without distress. VSS
--- NOTE | 2025-01-24 19:35 | W.PN.UPDATE ---
Update Note
Progress Note Update
-Requested by the nursing staff to assess the patient due to IV Infiltration with Vancomycin. Patient received one dose of vancomycin. Redness on the IV site, rash mostly on the legs and arms. -IV line was removed by IV team and cold compress was
placed. Daughter at bedside and requesting to D/C vanco.
-On assessment patient noted with rash/hives on legs, arms, groin and lower back. no sob, swelling or any other symptoms.
-Will give one dose of Benadryl now and will d/c Vancomycin.
-Patient alert and oriented, no signs of infection noted during the exam. Tylenol PRN for fever
-Patient received one dose of vanco today, will monitor for now as blood cultures result still pending and decided by morning team.
[2025-01-24] MEDS: BENADRYL 25 MG IV (19:42)
--- NOTE | 2025-01-24 19:46 | VATNOTE ---
called to assess right forearm IV site; noted red and slightly swollen. Area small and did not require antidote as vancomycin had been infusing per Aleyda CLINTON. IV site removed and restarted in left wrist. Pt denied pain. Ice applied.
--- NOTE | 2025-01-24 23:17 | W.PN.ONC2 ---
Today's Communication / Plan
-
IR consulted regarding possible liver-directed therapy.
MRI brain not yet discussed.
Recommend Rad Onc consult regarding brain mets.
Discussed treatment options today and pt/daughter stated 'not ready for hospice,' they appeared surprised that I mentioned it.
Impression
Impression
Hypercalcemia of malignancy
Met pancreatic Ca, now with disease progression in liver
Chemotherapy intolerance
Oxaliplatin induced neuropathy
Full code
Plan
Plan
Personally reviewed images from CT scan showing marked disease progression but bulk of disease in left liver lobe.
MRI brain was not yet resulted when I saw him and I have not yet discussed with him.
Recommend:
- IR consult regarding possible liver-directed therapy
- Outpt Rad Onc consult regarding brain mets
- Would then start 5-FU/Onivyde as third-line therapy
IVF + pamidronate for Tx hypercalcemia of malignancy. Follow Ca.
Subjective/Objective
Chief Complaint
Heme/Onc follow up of pancreatic cancer
Subjective
Pt asking about CT scan done this admission. Has been on treatment break for last month or two due to toxicity from chemo, particularly peripheral neuropathy
Vital Signs:
Vital Signs
Temp Pulse Resp BP Pulse Ox
97.9 F 67 18 95/47 97
01/24/25 23:10 01/24/25 23:10 01/24/25 23:10 01/24/25 23:10 01/24/25 23:10
Lab Results:
Laboratory Data
WBC 11.1 10^3/uL (4.8-10.8) H 01/24/25 07:57
Hgb 11.5 g/dL (13.0-18.0) L 01/24/25 07:57
Plt Count 151 10^3/uL (130-400) D 01/24/25 07:57
PT 14.5 Sec (11.4-14.6) 01/21/25 12:58
INR 1.10 01/21/25 12:58
APTT 25.3 Sec (23.4-35.0) 01/21/25 12:58
eGFR > 60.00 01/24/25 07:57
Physical Exam
Awake, alert, non-toxic
[2025-01-25 04:29] VITALS: BP 107/65
[2025-01-25 06:00] VITALS: BMI 24.4
[2025-01-25 07:00] VITALS: BP 114/66
--- NOTE | 2025-01-25 07:47 | VATNOTE ---
Vat rounds: Right arm infiltrate has been resolved.No c/o pain at this time.
[2025-01-25] MEDS: TOPROL XL 25 MG PO ×2 (07:57→19:48)
[2025-01-25] MEDS: LOVENOX 75 MG SC ×2 (07:58→19:48)
[2025-01-25 08:21] LABS: Hematocrit 30.5 % (39.0-52.0); Hemoglobin 10.6 g/dL (13.0-18.0); Mean Corp Hgb Conc. 34.8 g/dL (33.0-37.0); Mean Corpuscular Hgb 32.9 pg (27.0-31.0); Mean Corpuscular Volume 94.7 fL (80.0-94.0); Platelet Count 159 10^3/uL (130-400); Red Blood Cell Count 3.22 10^6/uL (4.70-6.10); Red Cell Dist. Width 14.2 % (11.5-14.5); White Blood Cell Count 14.7 10^3/uL (4.8-10.8)
[2025-01-25 08:39] LABS: ALT (SGPT) 45 U/L (0-50); AST (SGOT) 226 U/L (17-59); Albumin 2.8 g/dl (3.5-5.0); Alkaline Phosphatase 219 U/L (38-126); Blood Urea Nitrogen 17 mg/dl (9-20); Calcium 10.2 mg/dl (8.4-10.2); Carbon Dioxide 25 mmol/L (22-30); Chloride 103 mmol/L (98-107); Direct Bilirubin 0.6 mg/dl (0.0-0.4); Estimated Creatinine Clearance 66 ml/min; Glucose 99 mg/dl (70-99); Potassium 3.9 mmol/L (3.5-5.1); Sodium 135 mmol/L (135-145); Total Bilirubin 1.4 mg/dl (0.2-1.3); Total Protein 5.2 g/dl (6.3-8.2); eGFR > 60.00
--- NOTE | 2025-01-25 09:12 | W.PN.ONC ---
Today's Communication / Plan
-
Await rad onc input re: brain mets
Await IR input (I reached out via TT) re: liver directed therapy
PT eval
d/c planning - mgmt can be done as an outpatient
Impression
Impression
Hypercalcemia of malignancy
Met pancreatic Ca, now with disease progression in liver
Chemotherapy intolerance
Oxaliplatin induced neuropathy
Blurred vision - 2 INDUSTRIAL DESIGN[employer] lesions suspicious for mets, with small to moderate edema
Full code
Plan
Plan
Reviewed CT images, showing disease progression, especially in the left lobe of liver. Poor tolerance to prior chemo. I've reached out to IR to consider liver directed therapy options (to be done as outpatient if he's a candidate)
Reviewed brain images. Rad onc has been consulted. Edema is mild, will defer steroid dosing to Rad Onc.
Discussed goals of care again this am, he wants to continue treatment. He/daughter were not interested in hospice when broached by Dr. Potts
Plan for systemic therapy if PS allows, outpatient 5-FU/Onivyde as third-line therapy
Calcium improving following pamidronate
Subjective/Objective
Subjective/Objective
no focal complaints, blurry vision has resolved
Vital Signs:
Vital Signs
Temp Pulse Resp BP Pulse Ox
99 F 74 18 114/66 95
01/25/25 07:00 01/25/25 07:57 01/25/25 07:00 01/25/25 07:57 01/25/25 07:00
Lab Results:
Laboratory Data
WBC 14.7 10^3/uL (4.8-10.8) H 01/25/25 07:12
Hgb 10.6 g/dL (13.0-18.0) L 01/25/25 07:12
Plt Count 159 10^3/uL (130-400) 01/25/25 07:12
PT 14.5 Sec (11.4-14.6) 01/21/25 12:58
INR 1.10 01/21/25 12:58
APTT 25.3 Sec (23.4-35.0) 01/21/25 12:58
eGFR > 60.00 01/25/25 07:12
[2025-01-25 09:35] VITALS: BP 139/78; BP_SYST 69
[2025-01-25] MEDS: THERAGRAN 1 TABLET PO (11:06)
--- NOTE | 2025-01-25 11:43 | W.PN.HOSP.TC ---
Today's Communication/Plan
-
ID consult
labs in AM
Assessment / Plan
Assessment / Plan
74yo M with PMHX of pancreatc CA with liver metastasis, HTN, HLD, asthma, HFmrEF came with weakness, decreased appetite and unsteady gait, found hypercalcemia, that started to improve on biphosphates and hydration. Developed fever without source of
infection
A/P:
#Hypercalcemia
#Hyperkalemia
most likely 2/2 CA
Nephrology follows
Improving after pamidronate
PTHrP pending
hepatic metastatic disease involving the left lobe of the liver
Oncology planning for outpatient therapy, possible IRAD -guided embolization
#New small rounded cortical hyperdensity in the right frontal lobe with mild surrounding edema suggestive of metastatic disease
MRI brain: Two focal enhancing lesions, which very likely represent intracranial metastatic disease.
Hold off Steroids until active infection excluded - patient is neurologically intact
#Fever
can be 2/2 PVT, Cancer, infection
Bcx NTD
Moderate amount of free fluid within the pelvis - not seen on subsequent US
With elevated LFT - schedule HIDA, start Zosyn meanwhile after paracentesis
Chest XR without acute pneumonia
UA not concerning for infection
Patient has no significant complains
COVID-19 and Influenza PCR neg
Elevated procalcitonin with metastatic CA- not informative
Follow off Abx pending ID consult
#PVT
Lovenox BID 1mg/kg - bridges ELiquis as per CM
Onc to follow
#Transaminitis
#elevated alk.phos
no RUQ pain
CT with No evidence for calcified gallstones. No evidence for biliary ductal dilation
#Pulmonary nodules
2/2 metastatic disease
increased compared with prior
#Essential HTN
hold lisinopril
#Paroxysmal Afib s/p PPM
telemetry
BB
#Chronic HFmrEF
#Asthma not in exacerbation
cont home meds
#old infarction involving the left parieto-occipital and posterior temporal region
Now on therapeutic AC
#empty sella syndrome
no overt hormonal deficiency clinically
check TSH
DVt ppx on Lovenox therapeutic
Full code
I have spent at least 58min reviewing chart, test results, communication with consultants and family and providing direct patient care
Anticipated Discharge: 24 - 48 hours
Subjective/Interval History
-
Date of Service: January 25, 2025
Objective Data
-
Labs:
Laboratory Results
01/25/25
07:12
WBC 14.7 H
Hgb 10.6 L
Hct 30.5 L
Plt Count 159
Sodium 135
Potassium 3.9
Chloride 103
Carbon Dioxide 25
BUN 17
Creatinine 1.0
Glucose 99
Calcium 10.2
Total Bilirubin 1.4 H
AST 226 H
ALT 45
Alkaline Phosphatase 219 H
Vital Signs:
Vital Signs
Temp Pulse Resp BP Pulse Ox
98.3 F 69 13 139/78 100
01/25/25 09:35 01/25/25 09:35 01/25/25 09:35 01/25/25 09:35 01/25/25 09:35
I&O
01/24/25 01/25/25 01/26/25
06:59 06:59 06:59
Intake Total 1360 / 1360 2240 / 2240
Output Total 750 / 750 1600 / 1600
Balance 610 / 610 640 / 640
Review of Systems
-
History Source: Patient
All other systems: Reviewed and negative
Physical Exam
-
General: No Apparent Distress
HEENT: Normocephalic
Respiratory: Clear to Auscultation
Cardiac: Regular Rhythm
GI: Soft, Nontender and Nondistended
Musculoskeletal: No Clubbing, No Cyanosis and No Edema
Skin: Warm
Neuro: Awake, Alert, Oriented and AO x 3
Psych: Calm
[2025-01-25 13:44] LABS: % Basophils 0.1 % (0-2); % Eosinophils 0.2 % (0-6); % Immature Granulocytes 0.7 % (0-0.5); % Lymphocytes 4.5 % (20.5-51.1); % Monocytes 7.5 % (1.7-9.3); Absolute Immature Granulocytes 0.1 10^3/uL (0-0.05); Absolute Lymphocytes 0.7 10^3/uL (1.2-3.4); Absolute Monocytes 1.1 10^3/uL (0.1-0.6); Absolute Neutrophils 12.8 10^3/uL (1.4-6.5); Nucleated Red Blood Cells % 0 % (-)
[2025-01-25 15:30] VITALS: BP 100/50
[2025-01-25 15:51] LABS: PTH Related Peptide LC-MS/MS 25.4 pmol/L (0.0-2.3)
--- NOTE | 2025-01-25 15:52 | CM ---
CM reviewed chart, consult received for cost of Eliquis (10 mg BID for 7 days, then 5 mg BID). CM spoke with patients pharmacy ([facility]), per pharmacist, no co-pay. Per chart, ID consulted. CM will continue to follow for all discharge planning
needs.
Plan; care ongoing at this time, patient previously denied SNF, watch for VN needs.
--- NOTE | 2025-01-25 16:31 | W.PN.NEPH.PH ---
Today's Communication / Plan
-
observe off IVF , prn lasix
labs in am
Assessment/Plan
-
Impression:
Presentation with blurry vision generalized weakness and anorexia
Hypercalcemia
Hyperkalemia
Metastatic pancreatic cancer
Oxaliplatin induced neuropathy
History of congestive heart failure with preserved EF
History of ventricular tachycardia with indwelling ICD
History of hypertension
History of COPD/asthma
History of gout
History of prior left temporal lobe CVA
Paroxysmal atrial fibrillation
Plan:
Hypercalcemia:
raghu better corrected at 11, s/p pamidronate on 01/21
wt slowly up, off IVF and remains on RA
no hypervolemia clinically, prn lasix
Hypercalcemia-Likely precipitated by metastatic pancreatic cancer, MRI brain with lesions
Intact PTH appropriately suppressed at 8
-PTH RP pending
mild hyponatremia likely dilutional -improved
potassium normal range, holding ACEI
BP are stable on BB
not enough to do paracentesis
follow LFTs
d/w pt
-
-
Date of Service: January 25, 2025
CC / HPI / ROS
-
Chief Complaint:
Hypercalcemia
History of Present Illness:
Calcium down to 11 corrected following administration of pamidronate and off IV fluids
Hemodynamically labile
no fever today
Review of Systems:
Nonoliguric
No reported chest pain or shortness of breath
Weights up
Labs
-
Labs:
WBC 14.7 10^3/uL (4.8-10.8) H 01/25/25 07:12
RBC 3.22 10^6/uL (4.70-6.10) L 01/25/25 07:12
Hgb 10.6 g/dL (13.0-18.0) L 01/25/25 07:12
Hct 30.5 % (39.0-52.0) L 01/25/25 07:12
Plt Count 159 10^3/uL (130-400) 01/25/25 07:12
Sodium 135 mmol/L (135-145) 01/25/25 07:12
Potassium 3.9 mmol/L (3.5-5.1) 01/25/25 07:12
Chloride 103 mmol/L (98-107) 01/25/25 07:12
Carbon Dioxide 25 mmol/L (22-30) 01/25/25 07:12
BUN 17 mg/dl (9-20) 01/25/25 07:12
Creatinine 1.0 mg/dL (0.7-1.3) 01/25/25 07:12
eGFR > 60.00 01/25/25 07:12
Glucose 99 mg/dl (70-99) 01/25/25 07:12
Calcium 10.2 mg/dl (8.4-10.2) 01/25/25 07:12
Albumin 2.8 g/dl (3.5-5.0) L 01/25/25 07:12
Physical Exam
-
Vital Signs:
Vital Signs
Temp Pulse Resp BP Pulse Ox
98.8 F 65 18 100/50 97
01/25/25 15:30 01/25/25 15:30 01/25/25 15:30 01/25/25 15:30 01/25/25 15:30
Cardiovascular:: Regular rate and rhythm
Respiratory:: Bilateral: CTA
Lung Excursion:: Normal
Abdomen:: Distended, Nontender and Soft
Bowel Sounds:: Decreased
Extremity Edema:: None: Bilateral:
Mazariegos Catheter: No
--- NOTE | 2025-01-25 16:59 | CON.ID ---
Consultation
-
Date/Time Consultation Requested: 01/25/25 1150
Date/Time Consultation Performed: 01/25/2025 1645
Requesting Provider: Dr. Man
Performing Provider: Dr. Perez
Reason for Consultation: Fever; leukocytosis
Chief Complaint / Past History
History of Present Illness
Lori Dc is a 74-year-old man with a significant past medical history of metastatic pancreatic cancer being evaluated at the request of Dr. Man in regards to fever. History is obtained from chart review, along with patient interview.
The patient initially presented to [facility] ER on 01/21 with fatigue and reported blurry vision. He reports that the prior week he had had flulike symptoms (as did other family members), which improved, but he continued to feel weak and he
reports his gait has been unsteady. He denies any falls.
At admission, he was not noted to have a leukocytosis, but has developed 1 over the past several days. Additionally, fevers were noted yesterday, with a Tmax of 102.2 degrees. He denies any headache. He denies any cough or congestion. He denies
any abdominal pain. He did note some loose stool today, though. Yesterday he received a single dose of vancomycin and the infusion was noted to have infiltrated. He was noted to have redness at the IV site, and a reported rash on the legs and
arms, but no swelling or shortness of breath.
He reports that his right ACW Port-A-Cath was placed approximately 2 years ago. He notes that infusions with that are okay, but blood draws are not possible at this time.
Past History
Additional Past Medical History:
Pancreatic cancer; mets to liver, lung and brain
Chemo induced neuropathy
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
ROLAN
COPD
Valvular disease
P A-fib
Dilated cardiomyopathy
Dyslipidemia
HTN
CHF
Additional Past Surgical History:
AICD
Allergy History:
vancomycin Allergy (Mild, Verified 01/24/25 20:20)
Rash
Medications Reviewed: Yes
Current Antibiotics:
None
Social History
Tobacco: Non-Smoker
Alcohol: Former
Drug: None
Living: Alone
Employment: Retired
Family History
Family History: Not Pertinent
Review of Systems
Vital Signs
Temp Pulse Resp BP Pulse Ox
98.8 F 65 18 100/50 97
01/25/25 15:30 01/25/25 15:30 01/25/25 15:30 01/25/25 15:30 01/25/25 15:30
Physical Exam
Physical Exam
Constitutional: No Acute Distress, Comfortable, Chronically Ill and Non-toxic
Head: Normocephalic
Eyes: Pupils Equal, Pupils Round, No Conjunctival Hemorrhage and Sclera Anicteric
Oral: No Thrush and No Ulcers
Cardiovascular: Regular Rate and S1/S2; Negative S3/S4
Pulmonary: Negative Wheezes, Rales or Rhonchi
Gastrointestinal: Soft, Non Tender, Non Distended, Normal Bowel Sounds, No Rebound and No Guarding
Genito-Urinary: Negative Mazariegos
Extremities: Negative Edema, Cyanosis, Erythema or Splinter Hemorrhage
Skin: Warm and Dry; Negative Rash or Jaundice
Neurological: Awake and Alert; Negative Meningeal Signs
Psychological: Calm
Lab / Diagnostic Study Results
01/25/25 07:12
01/25/25 07:12
Abs Immat Gran (auto) 0.1 10^3/uL (0-0.05) H 01/25/25 07:12
Absolute Neuts (auto) 12.8 10^3/uL (1.4-6.5) H 01/25/25 07:12
Absolute Lymphs (auto) 0.7 10^3/uL (1.2-3.4) L 01/25/25 07:12
Absolute Monos (auto) 1.1 10^3/uL (0.1-0.6) H 01/25/25 07:12
Absolute Basos (auto) 0.0 10^3/uL (0-0.2) 01/25/25 07:12
Immature Gran % 0.7 % (0-0.5) H 01/25/25 07:12
Neutrophils % 87.0 % (42.2-75.2) H 01/25/25 07:12
Lymphocytes % 4.5 % (20.5-51.1) L 01/25/25 07:12
Monocytes % 7.5 % (1.7-9.3) 01/25/25 07:12
Eosinophils % 0.2 % (0-6) 01/25/25 07:12
Basophils % 0.1 % (0-2) 01/25/25 07:12
PT 14.5 Sec (11.4-14.6) 01/21/25 12:58
INR 1.10 01/21/25 12:58
Procalcitonin 0.60 ng/ml (0.0-0.25) H 01/24/25 09:59
Ur Squamous Epith Cells 0-2 /LPF (Few) 01/24/25 12:06
Microbiology Results
Micro:
01/24/25 10:41 Blood Culture - Preliminary
Blood/Venous No Growth in 24 hours- Final report to follow
01/24/25 09:59 Blood Culture - Preliminary
Blood/Venous No Growth in 24 hours- Final report to follow
01/24/25 08:17 Influenza Types A & B (SHREYAS) - Final
Nasal Swab Negative for Influenza A & B, NAAT
Negative results must be combined with clinical observations
and patient history.
Nucleic Acid Amplification test (NAAT)performed on the
[employer] platform.
Imaging:
01/25/2025 abdominal ultrasound: Small volume ascites, not sufficient for percutaneous drainage.
01/24/2025 MRI brain: 2 focal enhancing lesions are noted which likely represent intracranial metastatic disease. A focal area of old infarction involving the left parietal occipital and posterior temporal regions is noted. There is moderate
atrophy, which appears greater involving the frontal and temporal regions. Please see full dictation for additional detail.
01/24/2025 CXR (2 view): Low lung volumes noted, with minor elevation of the right hemidiaphragm. No focal parenchymal opacifications to suggest pneumonia.
01/23/2025 CT abdomen/pelvis with contrast: Nodules within the visualized lower lungs, with at least 1 nodule in the right lower lobe increasing from previous examination. Significant interval increase in metastatic disease involving the liver, with
confluent involvement of the left lobe. New thrombus involving the left portal vein. Lymph node in the inferior periportal region, slightly larger than previous examination and suspicious for neoplastic lymph node.
Assessment / Plan
Fever
Leukocytosis
Pancreatic cancer; mets to liver, lung and brain
- on chemotherapy (second-line, with possible transition to third-line)
Possible reaction to vancomycin
Transaminitis
Chemo induced neuropathy
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
ROLAN
COPD
Valvular disease
P A-fib
Dilated cardiomyopathy
Dyslipidemia
HTN
CHF
Recommendations:
No immediately identifiable source of fever at present, although DDx includes tumor fever, thrombus, infection.
At present, would continue to observe off of antibiotics.
Follow white count and temperature curve.
Follow pending blood cultures; will repeat if fevers persist.
[2025-01-25] MEDS: CRESTOR 20 MG PO (17:12)
[2025-01-25 19:30] VITALS: BP 123/75
[2025-01-25 23:50] VITALS: BP 110/56
[2025-01-26 03:30] VITALS: BP 109/66
[2025-01-26 06:00] VITALS: BMI 24.2
[2025-01-26 07:00] VITALS: BP 109/65
[2025-01-26 07:26] LABS: % Basophils 0.1 % (0-2); % Eosinophils 0.2 % (0-6); % Immature Granulocytes 0.5 % (0-0.5); % Lymphocytes 6.1 % (20.5-51.1); % Monocytes 7.7 % (1.7-9.3); % Neutrophils 85.4 % (42.2-75.2); Absolute Immature Granulocytes 0.1 10^3/uL (0-0.05); Absolute Lymphocytes 0.7 10^3/uL (1.2-3.4); Absolute Monocytes 0.9 10^3/uL (0.1-0.6); Absolute Neutrophils 9.9 10^3/uL (1.4-6.5); Hematocrit 29.5 % (39.0-52.0); Hemoglobin 10.2 g/dL (13.0-18.0); Mean Corp Hgb Conc. 34.6 g/dL (33.0-37.0); Mean Corpuscular Hgb 32.8 pg (27.0-31.0); Mean Corpuscular Volume 94.9 fL (80.0-94.0); Nucleated Red Blood Cells % 0 % (-); Platelet Count 146 10^3/uL (130-400); Red Blood Cell Count 3.11 10^6/uL (4.70-6.10); Red Cell Dist. Width 14.4 % (11.5-14.5); White Blood Cell Count 11.6 10^3/uL (4.8-10.8)
[2025-01-26 07:55] LABS: ALT (SGPT) 40 U/L (0-50); AST (SGOT) 159 U/L (17-59); Albumin 2.5 g/dl (3.5-5.0); Alkaline Phosphatase 242 U/L (38-126); Blood Urea Nitrogen 16 mg/dl (9-20); Calcium 9.9 mg/dl (8.4-10.2); Carbon Dioxide 28 mmol/L (22-30); Chloride 103 mmol/L (98-107); Estimated Creatinine Clearance 66 ml/min; Glucose 94 mg/dl (70-99); Sodium 135 mmol/L (135-145); Total Bilirubin 1.2 mg/dl (0.2-1.3); Total Protein 4.7 g/dl (6.3-8.2); eGFR > 60.00
--- NOTE | 2025-01-26 07:57 | W.PN.ONC2 ---
Today's Communication / Plan
-
Continue restorative goals of care. Patient has declined DNR and hospice.
Await MRI.
Prognosis guarded based on poor chemotherapy tolerance, significant progression, hypercalcemia of malignancy, and chemotherapy refractory status.
Discharge planning. Not sure that he requires additional inpatient management that it hypercalcemia has improved following for medronate.
Impression
Impression
Met pancreatic Ca, now with disease progression in liver
Hypercalcemia of malignancy
Chemotherapy intolerance
Oxaliplatin induced neuropathy
Blurred vision - 2 [employer] lesions suspicious for mets, with small to moderate edema
Full code
Plan
Plan
Reviewed CT images, showing disease progression, especially in the left lobe of liver. Poor tolerance to prior chemo.
Getting MRI of abdomen.
IR was contacted regarding potential for liver directed therapy options (to be done as outpatient if he's a candidate)
Reviewed brain images. Rad onc has been consulted. Edema is mild, will defer steroid dosing to Rad Onc. Currently holding off on initiation of steroids.
Multiple prior discussions regarding goals of care. He is interested in continuing treatment. He/daughter were not interested in hospice when broached by Dr. Potts and Dr. Andrade with him yesterday.
Multiple poor risk features including poor performance status, previous chemotherapy intolerance, hypercalcemia malignancy, and significant rise in CA 19�9 suggest further therapy unlikely to give meaningful benefit but we must defer to the wishes
of the patient.
Plan for systemic therapy if PS allows, outpatient 5-FU/Onivyde as third-line therapy
Calcium improving following pamidronate
At this point, consider discharge planning possibly SNF.
Prognosis very guarded.
Subjective/Objective
Chief Complaint
ACS Heme Onc Follow up
Subjective
Patient offers no complaints. Scheduled for MRI later today.
Vital Signs:
Vital Signs
Temp Pulse Resp BP Pulse Ox
98.4 F 79 18 109/66 95
01/26/25 03:30 01/26/25 03:30 01/26/25 03:30 01/26/25 03:30 01/26/25 03:30
Lab Results:
Laboratory Data
WBC 11.6 10^3/uL (4.8-10.8) H 01/26/25 06:38
Hgb 10.2 g/dL (13.0-18.0) L 01/26/25 06:38
Plt Count 146 10^3/uL (130-400) 01/26/25 06:38
PT 14.5 Sec (11.4-14.6) 01/21/25 12:58
INR 1.10 01/21/25 12:58
APTT 25.3 Sec (23.4-35.0) 01/21/25 12:58
eGFR > 60.00 01/26/25 06:38
Laboratory Tests
11/01/24 01/22/25
08:50 07:41
CA 19-9 Antigen 217 H 9808 H
CA 19�9 increased from 217 up to 9808 in <3 months
Physical Exam
HEENT: No Jaundice
Cardiology: S1 and S2
Pulmonary: Clear
GI: Soft
Extremities: No C/C/E
[2025-01-26] MEDS: MAGNESIUM OXIDE 500 MG PO (08:37)
[2025-01-26] MEDS: TOPROL XL 25 MG PO ×2 (08:37→19:32)
[2025-01-26] MEDS: LOVENOX 75 MG SC ×2 (08:37→19:32)
--- NOTE | 2025-01-26 08:51 | W.PN.HOSP.TC ---
Today's Communication/Plan
-
Establish home hospice and d/c
Assessment / Plan
Assessment / Plan
74yo M with PMHX of pancreatc CA with liver metastasis, HTN, HLD, asthma, HFmrEF came with weakness, decreased appetite and unsteady gait, found hypercalcemia, that started to improve on biphosphate and hydration. Developed transient fever without
source of infection. With widespread pancreatic metastatic CA in liver, lungs and brain. As per conversation with oncologist - patient has poor functional status for outpatient treatment and hospice advised. Patient requested hospice and declined
further diagnostic procedures based on his conversation with oncologist. Hospice consult. Can be discharged as soon as hospice at home established
A/P:
#GOC
Patient is appropriate in his judgement of his condition, persistent in his choice and able to justify them appropriately. Has capacity to make medical decisions.
Patient agreeable for DNR status, realzing that CPR and intubation will not be attempted if such need arise
He would like to be d/c home with hospice
Family informed about this and will work with CM on d/c planning. They realize that active medications such as antihypertensives and blood thinners will not be continued on hospice and agreeable with this plan
CM consult for hospice
#Hypercalcemia
#Hyperkalemia
most likely 2/2 CA
Nephrology follows
Improving after pamidronate
PTHrP elevated
hepatic metastatic disease involving the left lobe of the liver
Oncology planning for outpatient therapy, possible IRAD -guided embolization
#New small rounded cortical hyperdensity in the right frontal lobe with mild surrounding edema suggestive of metastatic disease
MRI brain: Two focal enhancing lesions, which very likely represent intracranial metastatic disease.
Hold off Steroids until active infection excluded - patient is neurologically intact
#Fever
can be 2/2 PVT, Cancer, infection
Bcx NTD
Moderate amount of free fluid within the pelvis - not seen on subsequent US
Chest XR without acute pneumonia
UA not concerning for infection
Patient has no significant complains
COVID-19 and Influenza PCR neg
Elevated procalcitonin with metastatic CA- not informative
Follow off Abx as per ID consult
#PVT
Lovenox BID 1mg/kg - bridges ELiquis as per CM
Onc to follow
#Transaminitis
#elevated alk.phos
no RUQ pain
CT with No evidence for calcified gallstones. No evidence for biliary ductal dilation
#Pulmonary nodules
2/2 metastatic disease
increased compared with prior
#Essential HTN
hold lisinopril
#Paroxysmal Afib s/p PPM
telemetry
BB
#Chronic HFmrEF
#Asthma not in exacerbation
cont home meds
#old infarction involving the left parieto-occipital and posterior temporal region
Now on therapeutic AC
#empty sella syndrome
no overt hormonal deficiency clinically
check TSH
DVt ppx on Lovenox therapeutic
Full code
I have spent at least 58min reviewing chart, test results, communication with consultants and family and providing direct patient care
Anticipated Discharge: Within 24 hours
Subjective/Interval History
-
Date of Service: January 26, 2025
Objective Data
-
Labs:
Laboratory Results
01/26/25
06:38
WBC 11.6 H
Hgb 10.2 L
Hct 29.5 L
Plt Count 146
Sodium 135
Potassium 4.0
Chloride 103
Carbon Dioxide 28
BUN 16
Creatinine 1.0
Glucose 94
Calcium 9.9
Total Bilirubin 1.2
AST 159 H
ALT 40
Alkaline Phosphatase 242 H
Vital Signs:
Vital Signs
Temp Pulse Resp BP Pulse Ox
98.2 F 66 18 109/65 97
01/26/25 07:00 01/26/25 08:37 01/26/25 07:00 01/26/25 08:37 01/26/25 07:00
I&O
01/25/25 01/26/25 01/27/25
06:59 06:59 06:59
Intake Total 2240 / 2240
Output Total 1600 / 1600 750 / 750 200 / 200
Balance 640 / 640 -750 / -750 -200 / -200
Review of Systems
-
History Source: Patient
All other systems: Reviewed and negative
Physical Exam
-
General: No Apparent Distress
HEENT: Normocephalic
Neuro: Awake, Alert, Oriented and AO x 3
Psych: Calm and Intact Judgement/Insight
[2025-01-26 11:00] VITALS: BP 116/70
--- NOTE | 2025-01-26 11:34 | W.PN.NEPH.PH ---
Today's Communication / Plan
-
Calcium down to 9.9
We will sign off
Assessment/Plan
-
Impression:
Presentation with blurry vision generalized weakness and anorexia
Hypercalcemia
Hyperkalemia
Metastatic pancreatic cancer
Oxaliplatin induced neuropathy
History of congestive heart failure with preserved EF
History of ventricular tachycardia with indwelling ICD
History of hypertension
History of COPD/asthma
History of gout
History of prior left temporal lobe CVA
Paroxysmal atrial fibrillation
Plan:
Hypercalcemia:
raghu better corrected at 9.9, s/p pamidronate on 01/21
wt slowly up, off IVF and remains on RA
no hypervolemia clinically, prn lasix
Hypercalcemia-Likely precipitated by metastatic pancreatic cancer, MRI brain with lesions
Intact PTH appropriately suppressed at 8
-PTH RP pending
mild hyponatremia likely dilutional -improved
potassium normal range, holding ACEI
BP are stable on BB
not enough to do paracentesis
Sign off
-
-
Date of Service: January 26, 2025
CC / HPI / ROS
-
Chief Complaint:
Hypercalcemia
History of Present Illness:
Calcium down to 9.9 corrected following administration of pamidronate and off IV fluids
Hemodynamically labile
no fever today
Review of Systems:
Nonoliguric
No reported chest pain or shortness of breath
Weights up
Labs
-
Labs:
WBC 11.6 10^3/uL (4.8-10.8) H 01/26/25 06:38
RBC 3.11 10^6/uL (4.70-6.10) L 01/26/25 06:38
Hgb 10.2 g/dL (13.0-18.0) L 01/26/25 06:38
Hct 29.5 % (39.0-52.0) L 01/26/25 06:38
Plt Count 146 10^3/uL (130-400) 01/26/25 06:38
Sodium 135 mmol/L (135-145) 01/26/25 06:38
Potassium 4.0 mmol/L (3.5-5.1) 01/26/25 06:38
Chloride 103 mmol/L (98-107) 01/26/25 06:38
Carbon Dioxide 28 mmol/L (22-30) 01/26/25 06:38
BUN 16 mg/dl (9-20) 01/26/25 06:38
Creatinine 1.0 mg/dL (0.7-1.3) 01/26/25 06:38
eGFR > 60.00 01/26/25 06:38
Glucose 94 mg/dl (70-99) 01/26/25 06:38
Calcium 9.9 mg/dl (8.4-10.2) 01/26/25 06:38
Albumin 2.5 g/dl (3.5-5.0) L 01/26/25 06:38
Physical Exam
-
Vital Signs:
Vital Signs
Temp Pulse Resp BP Pulse Ox
98.2 F 66 18 109/65 97
01/26/25 07:00 01/26/25 08:37 01/26/25 07:00 01/26/25 08:37 01/26/25 07:00
Cardiovascular:: Regular rate and rhythm
Respiratory:: Bilateral: CTA
Lung Excursion:: Normal
Abdomen:: Distended, Nontender and Soft
Bowel Sounds:: Decreased
Extremity Edema:: None: Bilateral:
Mazariegos Catheter: No
--- NOTE | 2025-01-26 12:10 | CM ---
Addendum entered by Amber Bailey 01/26/25 12:59:
Per Yolanda, plan is for patient to d/c home tomorrow and hospice will sign on. Requesting time to d/c is 1 pm. Patient's daughter will transport home.
Hospitalist aware. OOH DNR on chart to be signed
Original Note:
CM met w/ patient, son and daughter bedside to discuss d/c planning.
CM consult for hospice. Patient and family agreeable to home w/ hospice. Yolanda/home health clinical liaison aware and met w/ patient and family following CM to further discuss. CM placed [facility] hosp[facility]
CM will follow up w/ Yolanda w/ plan after discussion w/ patient and family
Plan: Home w/ hospice
[2025-01-26] MEDS: THERAGRAN 1 TABLET PO (12:40)
--- NOTE | 2025-01-26 12:52 | HOSPNOTE ---
Spoke with patient and son and daughter about hospice and the philosophy. The patient is in agreement with hospice and wishes to go home tomorrow. The daughter will be driving the patient home. Equipment will be delivered. Attending and CM aware of
plan, the daughter will be picking patient up at 1pm.
[2025-01-26 15:00] VITALS: BP 117/73
--- NOTE | 2025-01-26 15:54 | W.PN.ID1 ---
Date of Service
Date of Service: January 26, 2025
Today's Communication
Continue off abx.
Assessment / Plan
Fever
Leukocytosis
Pancreatic cancer; mets to liver, lung and brain
- on chemotherapy (second-line, with possible transition to third-line)
Possible reaction to vancomycin
- hives noted on medial thighs, but unlikely from vanco at this point.
- question if prior rash was from vanco or something else.
Transaminitis
Chemo induced neuropathy
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
ROLAN
COPD
Valvular disease
P A-fib
Dilated cardiomyopathy
Dyslipidemia
HTN
CHF
Recommendations:
Fevers improved. Leukocytosis improved.
At present, would continue to observe off of antibiotics.
Follow white count and temperature curve.
Chief Complaint
-: Fever
Subjective / Review of Systems
Review of Systems: No Fever, No Chills and No Cough
Vital Signs / Physical Exam
Vital Signs
Vital Signs
Temp Pulse Resp BP Pulse Ox
98.3 F 85 19 116/70 95
01/26/25 11:00 01/26/25 11:00 01/26/25 11:00 01/26/25 11:00 01/26/25 11:00
Physical Exam
Constitutional: No Acute Distress, Comfortable and Non-toxic
Cardiovascular: S1/S2; Negative S3/S4
Pulmonary: Non Labored
Gastrointestinal: Soft and Non Tender
Skin: Rash (hives noted on medial thigh area B/L)
Neurological: Awake and Alert
Psychological: Calm
Objective Data
Lab Data
Lab Results
01/26/25 06:38
01/26/25 06:38
PT 14.5 Sec (11.4-14.6) 01/21/25 12:58
INR 1.10 01/21/25 12:58
APTT 25.3 Sec (23.4-35.0) 01/21/25 12:58
Estimated Creat Clear 66 ml/min 01/26/25 06:38
Total Bilirubin 1.2 mg/dl (0.2-1.3) 01/26/25 06:38
AST 159 U/L (17-59) H 01/26/25 06:38
ALT 40 U/L (0-50) 01/26/25 06:38
Alkaline Phosphatase 242 U/L (38-126) H 01/26/25 06:38
Most recent labs reviewed.
Micro Results:
01/24/25 10:41 Blood Culture - Preliminary
Blood/Venous No Growth in 48 hours- Final report to follow
01/24/25 09:59 Blood Culture - Preliminary
Blood/Venous No Growth in 48 hours- Final report to follow
01/24/25 08:17 Influenza Types A & B ([facility]) - Final
Nasal Swab Negative for Influenza A & B, NAAT
Negative results must be combined with clinical observations
and patient history.
Nucleic Acid Amplification test (NAAT)performed on the
[email or web address] ID NOW platform.
Imaging:
01/25/2025 abdominal ultrasound: Small volume ascites, not sufficient for percutaneous drainage.
01/24/2025 MRI brain: 2 focal enhancing lesions are noted which likely represent intracranial metastatic disease. A focal area of old infarction involving the left parietal occipital and posterior temporal regions is noted. There is moderate
atrophy, which appears greater involving the frontal and temporal regions. Please see full dictation for additional detail.
01/24/2025 CXR (2 view): Low lung volumes noted, with minor elevation of the right hemidiaphragm. No focal parenchymal opacifications to suggest pneumonia.
01/23/2025 CT abdomen/pelvis with contrast: Nodules within the visualized lower lungs, with at least 1 nodule in the right lower lobe increasing from previous examination. Significant interval increase in metastatic disease involving the liver, with
confluent involvement of the left lobe. New thrombus involving the left portal vein. Lymph node in the inferior periportal region, slightly larger than previous examination and suspicious for neoplastic lymph node.
--- NOTE | 2025-01-26 16:06 | PTCARENOTE ---
Pt had short run of Vtach on the monitor, 10 beats. Pt is asymptomatic. When RN went to check on the patient, he denied any cardiac symptoms but showed RN a new rash on his b/l inner thighs that is itchy. notified.
[2025-01-26] MEDS: CRESTOR 20 MG PO (17:22)
[2025-01-26 19:32] VITALS: BP 121/69
[2025-01-26] MEDS: TYLENOL 650 MG PO (23:17)
[2025-01-26 23:46] VITALS: BP 112/65
[2025-01-27 03:17] VITALS: BP 99/70
--- NOTE | 2025-01-27 04:24 | PTCARENOTE ---
Pt had short run of Vtach on the monitor, 11 beats. Pt is asymptomatic. When RN went to check on the patient, he denied SOB, chest discomfort, and pain. Pt states he is sweating VS: 115/56, HR 76, T:97.9, O2 96%RA, RR: 18. [employer] notified.
[2025-01-27 04:25] VITALS: BP 115/65
[2025-01-27 05:21] LABS: Blood Urea Nitrogen 16 mg/dl (9-20); Carbon Dioxide 30 mmol/L (22-30); Chloride 104 mmol/L (98-107); Estimated Creatinine Clearance 66 ml/min; Glucose 99 mg/dl (70-99); Magnesium 2.5 mg/dl (1.6-2.3); Potassium 4.4 mmol/L (3.5-5.1); Sodium 137 mmol/L (135-145); eGFR > 60.00
[2025-01-27 06:00] VITALS: BMI 23.9
[2025-01-27 07:04] VITALS: BP 107/62
[2025-01-27] MEDS: LOVENOX 75 MG SC (07:23)
[2025-01-27] MEDS: TOPROL XL 25 MG PO (07:24)
--- NOTE | 2025-01-27 09:01 | W.PN.HOSP.TC ---
Today's Communication/Plan
-
d/c when home hospice arranged
Assessment / Plan
Assessment / Plan
74yo M with PMHX of pancreatc CA with liver metastasis, HTN, HLD, asthma, HFmrEF came with weakness, decreased appetite and unsteady gait, found hypercalcemia, that started to improve on biphosphate and hydration. Developed transient fever without
source of infection. With widespread pancreatic metastatic CA in liver, lungs and brain. As per conversation with oncologist - patient has poor functional status for outpatient treatment and hospice advised. Patient requested hospice and declined
further diagnostic procedures based on his conversation with oncologist. Hospice consult. Can be discharged as soon as hospice at home established
A/P:
#GOC
Patient is appropriate in his judgement of his condition, persistent in his choice and able to justify them appropriately. Has capacity to make medical decisions.
Patient agreeable for DNR status, realizing that CPR and intubation will not be attempted if such need arise
He would like to be d/c home with hospice
Family informed about this and will work with CM on d/c planning. They realize that active medications such as antihypertensives and blood thinners will not be continued on hospice and agreeable with this plan
CM consult for hospice
#Hypercalcemia
#Hyperkalemia
most likely 2/2 CA
Nephrology follows
Improving after pamidronate
PTHrP elevated
hepatic metastatic disease involving the left lobe of the liver
Oncology planning for outpatient therapy, possible IRAD -guided embolization
#New small rounded cortical hyperdensity in the right frontal lobe with mild surrounding edema suggestive of metastatic disease
MRI brain: Two focal enhancing lesions, which very likely represent intracranial metastatic disease.
Hold off Steroids until active infection excluded - patient is neurologically intact
#Fever
can be 2/2 PVT, Cancer, infection
Bcx NTD
Moderate amount of free fluid within the pelvis - not seen on subsequent US
Chest XR without acute pneumonia
UA not concerning for infection
Patient has no significant complains
COVID-19 and Influenza PCR neg
Elevated procalcitonin with metastatic CA- not informative
Follow off Abx as per ID consult
#PVT
Lovenox BID 1mg/kg - bridges ELiquis as per CM
Onc to follow
#Transaminitis
#elevated alk.phos
no RUQ pain
CT with No evidence for calcified gallstones. No evidence for biliary ductal dilation
#Pulmonary nodules
2/2 metastatic disease
increased compared with prior
#Essential HTN
hold lisinopril
#Paroxysmal Afib s/p PPM
telemetry
BB
#Chronic HFmrEF
#Asthma not in exacerbation
cont home meds
#old infarction involving the left parieto-occipital and posterior temporal region
Now on therapeutic AC
#empty sella syndrome
no overt hormonal deficiency clinically
check TSH
DVt ppx on Lovenox therapeutic
Full code
I have spent at least 58min reviewing chart, test results, communication with consultants and family and providing direct patient care
Anticipated Discharge: Today
Subjective/Interval History
-
Date of Service: January 27, 2025
Objective Data
-
Labs:
Laboratory Results
01/27/25
04:44
Sodium 137
Potassium 4.4
Chloride 104
Carbon Dioxide 30
BUN 16
Creatinine 1.0
Glucose 99
Calcium 10.0
Vital Signs:
Vital Signs
Temp Pulse Resp BP Pulse Ox
98.1 F 82 18 109/58 99
01/27/25 07:04 01/27/25 07:04 01/27/25 07:04 01/27/25 07:24 01/27/25 07:04
I&O
01/26/25 01/27/25 01/28/25
06:59 06:59 06:59
Intake Total 240 / 240
Output Total 750 / 750 1025 / 1025
Balance -750 / -750 -785 / -785
Review of Systems
-
History Source: Patient
All other systems: Reviewed and negative
Physical Exam
-
General: Comfortable
HEENT: Normocephalic
Respiratory: Clear to Auscultation
Cardiac: Regular Rhythm
GI: Soft
Neuro: Awake, Alert and Oriented
Psych: Calm
--- NOTE | 2025-01-27 09:05 | W.DCSUMMARY ---
Discharge Summary
Discharge Data
Date of Admission: 01/21/25
Date of Discharge: 01/27/25
-
Pending Results: No
Hospital Course
74yo M with PMHX of pancreatc CA with liver metastasis, HTN, HLD, asthma, HFmrEF came with weakness, decreased appetite and unsteady gait, found hypercalcemia, that started to improve on biphosphate and hydration. Developed transient fever without
source of infection. With widespread pancreatic metastatic CA in liver, lungs and brain. As per conversation with oncologist - patient has poor functional status for outpatient treatment and hospice advised. Patient requested hospice and declined
further diagnostic procedures based on his conversation with oncologist. Hospice consult. As per CM - hospice at home established
Patient is appropriate in his judgement of his condition, persistent in his choice and able to justify them appropriately. Has capacity to make medical decisions.
Patient agreeable for DNR status, realizing that CPR and intubation will not be attempted if such need arise
He would like to be d/c home with hospice
Family informed about this and will work with CM on d/c planning. They realize that active medications such as antihypertensives and blood thinners will not be continued on hospice and agreeable with this plan
I have spent at least 38min reviewing chart, test results, communication with consultants and family and providing direct patient care
Patient was managed for:
#GOC
#Hypercalcemia
#Hyperkalemia
#hepatic metastatic disease involving the left lobe of the liver
#New small rounded cortical hyperdensity in the right frontal lobe with mild surrounding edema suggestive of metastatic disease
#Fever
#PVT
#Transaminitis
#elevated alk.phos
#Pulmonary nodules
#Essential HTN
#Paroxysmal Afib s/p PPM
#Chronic HFmrEF
#Asthma not in exacerbation
#old infarction involving the left parieto-occipital and posterior temporal region
#empty sella syndrome
Discharge Plan
-
Patient Disposition: Home with Hospice
Discharge Diagnosis/Procedures: hypercalcemia
Diet: Regular
Referrals:
Verenice Azevedo NP [Family Provider] -
Prescriptions:
Continued
rosuvastatin 20 mg Tablet
20 mg PO QPM
metoprolol succinate 50 mg Tablet Extended Release 24 Hr
25 mg PO BID
lisinopril 5 mg Tablet
5 mg PO DAILY
therapeutic multivitamin Tablet
1 tab PO NOON
albuterol sulfate 90 mcg/actuation Hfa Aerosol Inhaler
2 puff INHALATION R Q4HPRN PRN (Reason: wheezing)
guaifenesin [Mucinex] 600 mg Tablet Extended Release 12hr
600 mg PO [id number] PRN (Reason: cough)
magnesium oxide 400 mg magnesium Tablet
400 mg PO Q48H
Discharge Orders:
Discharge Patient (As Directed); Ordered 01/27/25
Ordered By: Leighton Man
Discharge Date and Time
Print Language: GHANAIAN
--- NOTE | 2025-01-27 09:19 | W.PN.ONC2 ---
Today's Communication / Plan
-
.
Impression
Impression
Met pancreatic Ca, now with disease progression in liver
Hypercalcemia of malignancy
Chemotherapy intolerance
Oxaliplatin induced neuropathy
Blurred vision - 2 [employer] lesions suspicious for mets, with small to moderate edema
Plan
Plan
Opting for home hospice
Subjective/Objective
Subjective
no new complaints
Vital Signs:
Vital Signs
Temp Pulse Resp BP Pulse Ox
98.1 F 82 18 109/58 99
01/27/25 07:04 01/27/25 07:04 01/27/25 07:04 01/27/25 07:24 01/27/25 07:04
Lab Results:
Laboratory Data
WBC 11.6 10^3/uL (4.8-10.8) H 01/26/25 06:38
Hgb 10.2 g/dL (13.0-18.0) L 01/26/25 06:38
Plt Count 146 10^3/uL (130-400) 01/26/25 06:38
PT 14.5 Sec (11.4-14.6) 01/21/25 12:58
INR 1.10 01/21/25 12:58
APTT 25.3 Sec (23.4-35.0) 01/21/25 12:58
eGFR > 60.00 01/27/25 04:44
--- NOTE | 2025-01-27 11:27 | CM ---
Patient will d/c home today w/ [facility]. Daughter will transport home.
IMM verbally reviewed, patient given copy, copy placed on chart
OOH DNR signed on chart
No other CM needs identified at this time
Plan: Home w/ [facility]
--- NOTE | 2025-01-27 11:48 | W.PN.ID1 ---
Date of Service
Date of Service: January 27, 2025
Today's Communication
Sign off
Assessment / Plan
Fever
Leukocytosis
Pancreatic cancer; mets to liver, lung and brain
- on chemotherapy (second-line, with possible transition to third-line)
Possible prior reaction to vancomycin
- hives noted on medial thighs, but unlikely from vanco at this point.
- question if prior rash was from vanco or something else.
Transaminitis
Chemo induced neuropathy
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
ROLAN
COPD
Valvular disease
P A-fib
Dilated cardiomyopathy
Dyslipidemia
HTN
CHF
Recommendations:
Fevers improved. Leukocytosis improved.
Continue off antibiotics.
No acute infectious process identified.
Will see again at your request.
Chief Complaint
-: Fever
Subjective / Review of Systems
Patient seen and examined. Overall feels well. No specific complaints.
Review of Systems: No Fever
Vital Signs / Physical Exam
Vital Signs
Vital Signs
Temp Pulse Resp BP Pulse Ox
98.1 F 82 18 109/58 99
01/27/25 07:04 01/27/25 07:04 01/27/25 07:04 01/27/25 07:24 01/27/25 07:04
Physical Exam
Constitutional: No Acute Distress, Comfortable, Chronically Ill and Non-toxic
Cardiovascular: S1/S2; Negative S3/S4
Pulmonary: Negative Non Labored
Gastrointestinal: Soft and Non Distended
Neurological: Awake and Alert
Psychological: Calm
Objective Data
Lab Data
Lab Results
01/26/25 06:38
01/27/25 04:44
PT 14.5 Sec (11.4-14.6) 01/21/25 12:58
INR 1.10 01/21/25 12:58
APTT 25.3 Sec (23.4-35.0) 01/21/25 12:58
Estimated Creat Clear 66 ml/min 01/27/25 04:44
Total Bilirubin 1.2 mg/dl (0.2-1.3) 01/26/25 06:38
AST 159 U/L (17-59) H 01/26/25 06:38
ALT 40 U/L (0-50) 01/26/25 06:38
Alkaline Phosphatase 242 U/L (38-126) H 01/26/25 06:38
Most recent labs reviewed.
Micro Results:
01/24/25 10:41 Blood Culture - Preliminary
Blood/Venous No Growth in 72 hours- Final report to follow
01/24/25 09:59 Blood Culture - Preliminary
Blood/Venous No Growth in 72 hours- Final report to follow
01/24/25 08:17 Influenza Types A & B ([facility]) - Final
Nasal Swab Negative for Influenza A & B, NAAT
Negative results must be combined with clinical observations
and patient history.
Nucleic Acid Amplification test (NAAT)performed on the
[employer] ID NOW platform.
Imaging:
01/25/2025 abdominal ultrasound: Small volume ascites, not sufficient for percutaneous drainage.
01/24/2025 MRI brain: 2 focal enhancing lesions are noted which likely represent intracranial metastatic disease. A focal area of old infarction involving the left parietal occipital and posterior temporal regions is noted. There is moderate
atrophy, which appears greater involving the frontal and temporal regions. Please see full dictation for additional detail.
01/24/2025 CXR (2 view): Low lung volumes noted, with minor elevation of the right hemidiaphragm. No focal parenchymal opacifications to suggest pneumonia.
01/23/2025 CT abdomen/pelvis with contrast: Nodules within the visualized lower lungs, with at least 1 nodule in the right lower lobe increasing from previous examination. Significant interval increase in metastatic disease involving the liver, with
confluent involvement of the left lobe. New thrombus involving the left portal vein. Lymph node in the inferior periportal region, slightly larger than previous examination and suspicious for neoplastic lymph node.
[2025-01-27 12:31] VITALS: BP 125/78
== END 2025-01-27 12:50 | disposition hospice, home (50) | DRG 435 ==
LOC: 4 WEST ACU 19:24
PROVIDERS: Internal Medicine; Nurse Practitioner Family; ADMITTING PHYSICIAN Internal Medicine; ATTENDING PHYSICIAN Internal Medicine; CONSULT PHYSICIAN Internal Medicine Hematology & Oncology; CONSULT PHYSICIAN Specialist; EMERGENCY PHYSICIAN Student in an Organized Health Care Education/Training Program; FAMILY PHYSICIAN Nurse Practitioner Family; OTHER PHYSICIAN Internal Medicine Infectious Disease
DX: C25.9 Malignant neoplasm of pancreas, unspecified (principal); G93.6 Cerebral edema; I81 Portal vein thrombosis; C78.7 Secondary malignant neoplasm of liver and intrahepatic bile duct; I50.42 Chronic combined systolic (congestive) and diastolic (congestive) heart failure; E87.1 Hypo-osmolality and hyponatremia; C79.31 Secondary malignant neoplasm of brain; I42.0 Dilated cardiomyopathy; C78.00 Secondary malignant neoplasm of unspecified lung; E83.52 Hypercalcemia; F17.200 Nicotine dependence, unspecified, uncomplicated; G31.9 Degenerative disease of nervous system, unspecified; I11.0 Hypertensive heart disease with heart failure; I48.0 Paroxysmal atrial fibrillation; E87.5 Hyperkalemia; E78.00 Pure hypercholesterolemia, unspecified; J45.909 Unspecified asthma, uncomplicated; J44.89 Other specified chronic obstructive pulmonary disease; G47.33 Obstructive sleep apnea (adult) (pediatric); T45.1X5A Adverse effect of antineoplastic and immunosuppressive drugs, initial encounter; G62.0 Drug-induced polyneuropathy; Z66 Do not resuscitate; Z79.899 Other long term (current) drug therapy; Z91.199 Patient's noncompliance with other medical treatment and regimen due to unspecified reason; Z11.52 Encounter for screening for COVID-19; Z60.2 Problems related to living alone
CPT/HCPCS: 70450; 70553; 71046; 74177; 76705; 80048; 80053; 81003; 81015; 82248; 83519; 83735; 83970; 84145; 84443; 84484; 85025; 85610; 85730; 86301; 86803; 87040; 87340; 87389; 87502; 87811; 93005; 96374; 97116; 97162; 97167; 99291; A9575; J2430; Q9967